=== PATIENT | female | born 1945 | race Caucasian/White ===

== ENCOUNTER 2017-10-12 19:08 | Inpatient (IN) | payer MEDICARE, OTHER ==
--- NOTE | 2017-10-12 20:42 | RAD ---
CHEST TWO VIEWS: 10/12/17 HISTORY: Dyspnea. COMPARISON: 08/02/15 study. Surgical clips are seen over the right chest. Heart size is within normal limits. There are atherosc lerotic changes of the aorta. The lungs are clear of infiltrates. The bone are demineralized. IMPRESSION: No active intrathoracic disease. POS: [facility]
[2017-10-12 21:17] LABS: ALT (SGPT) 32 U/L (8-55); AST (SGOT) 23 U/L (5-34); Albumin 2.8 g/dL (3.4-4.8); Alkaline Phosphatase 55 U/L (40-150); Anion Gap 15 mmol/L (10-20); BUN (Urea Nitrogen) 16 mg/dL (9.8-20.1); Bilirubin, Total 0.6 mg/dL (0.2-1.2); CK (CPK) 25 U/L (29-168); Calc. Creatinine Clearance 0 mL/min (70-130); Calcium 8.7 mg/dL (7.8-10.44); Carbon Dioxide 22 mmol/L (23-31); Chloride 97 mmol/L (98-107); Estimated GFR-MDRD Greater than 90; Globulin 2.6 g/dL (2.4-3.5); Glucose 123 mg/dL (83-110); Potassium 3.6 mmol/L (3.5-5.1); Protein, Total 5.4 g/dL (6.0-8.3); Sodium 130 mmol/L (136-145)
[2017-10-12 21:21] LABS: CKMB 0.5 ng/mL (0-6.6); Troponin I 0.026 ng/mL (< 0.028)
[2017-10-12 21:41] LABS: Bilirubin Negative (Negative); Blood, Urine Negative (Negative); Clarity CLEAR (Clear); Glucose, Urine (Dipstick) Negative (Negative); Leukocyte Negative (Negative); Nitrite Negative (Negative); Protein, Urine (Dipstick) Negative (Neg-Trace); Specific Gravity, Urine 1.021 (1.002-1.036); Urobilinogen 0.2 mg/dL (0.2-1.0); pH, Urine 5.5 (5.0-9.0)
[2017-10-12 22:01] LABS: #Lymphocytes 0.4 thou/uL (1.20-3.40); #Monocytes 0.9 thou/uL (0.11-0.59); #Neutrophils 14.5 thou/uL (1.40-6.50); %Basophils 0.2 % (0.0-1.0); %Eosinophils 0.2 % (0.0-10.0); %Lymphocytes 2.8 % (21.0-51.0); %Monocytes 5.9 % (0.0-10.0); Acanthocytes SLIGHT = 1-5 cells (100X) (None Seen); Anisocytosis SLIGHT = 6-15 cells (100X) (0-5/hpf); Hemoglobin 5.3 g/dL (12.0-16.0); Hypochromia MARKED = >30 cells (100X) (0-5/hpf); MDiff Complete? YES; Mean Corpuscular HGB CONC 27.7 g/dL (32.0-36.0); Mean Corpuscular Hemoglobin 17.3 pg (27.0-31.0); Mean Corpuscular Volume 62.4 fl (81.0-99.0); Mean Platelet Volume 9.5 fL (7.4-10.4); Microcytosis MODERATE=15-30 cells (100X) (0-5/hpf); PLT Morphology Comment Appears Adequate; Platelet Count 393 thou/uL (130-400); Polychromasia SLIGHT = 2-3 cells (100X) (0-2/hpf); RBC Distribution Width 18.2 % (11.5-14.5); Red Blood Cell (RBC) Count 3.08 mill/uL (4.20-5.40); Reflex for Review?? YES; White Blood Cell (WBC) Count 15.9 thou/uL (4.8-10.8)
[2017-10-12 22:31] LABS: Iron 13 ug/dL (50-170); Iron Binding Capacity, Total 259 mcg/dL (265-497)
[2017-10-12 22:33] LABS: INR-International Normal Ratio 1.2; PTT 38.1 SEC (22.9-36.1); Prothrombin Time 15.7 SEC (12.0-14.7)
[2017-10-13] MEDS ORDERED: Sodium Chloride 0.9% 1,000 ML IV SCH (00:02)
[2017-10-13 00:25] VITALS: BMI 16.5
[2017-10-13] MEDS ORDERED: hydrALAZINE 20 MG/ML VIAL SLOW IVP PRN (02:58)
[2017-10-13] MEDS ORDERED: Ondansetron ODT 4 MG TAB PO PRN (02:58)
[2017-10-13] MEDS ORDERED: Dextrose 50% Abboject 50 ML SYRINGE SLOW IVP PRN (02:58)
[2017-10-13] MEDS ORDERED: cloNIDine 0.1 MG TAB PO PRN (02:58)
[2017-10-13] MEDS ORDERED: HumaLOG 300 UNITS/3 ML VIAL SC PRN ×2 (02:58)
[2017-10-13] MEDS ORDERED: diphenhydrAMINE 25 MG CAP PO PRN (02:58)
[2017-10-13] MEDS ORDERED: Ondansetron HCl/PF 4 MG/2 ML Vial IVP PRN (02:58)
[2017-10-13] MEDS ORDERED: Dextrose 5% in Water 1,000 ML IV PRN (02:58)
[2017-10-13] MEDS ORDERED: Acetaminophen 500 MG TAB PO PRN (02:58)
--- NOTE | 2017-10-13 04:28 | HP ---
DATE OF ADMISSION: 10/13/2017 PRIMARY CARE PROVIDER: Yolette Franco M.D. CHIEF COMPLAINT: Decreased appetite. HISTORY OF PRESENT ILLNESS: This is a 72-year-old female who presented to [facility] after family noted decreasing appetite, pale appearance and weakness. 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 The patient also developed seizure disorder after the cerebrovascular accident on ch ronic anti-seizure regimen. The patient is essentially nonambulatory with right hemiparesis and expr essive aphasia. No specific history of fever, cough, or chills. No evidence of stool color changes. No specific evidence of change to chronic medication regimen; however, patient was noted taking asp irin 325 mg daily. In the emergency room, the patient underwent general evaluation with screening me tabolic survey showing hemoglobin of 5.3. The patient was typed and crossed for 2 units of packed re d blood cells receiving first unit at the time of this evaluation. PAST MEDICAL HISTORY: 1. 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 2. Recurrent seizures after cerebrovascular accident. 3. Expressive aphasia. 4. Right hemiparesis. 5. Hypothyroidism. 6. Hyperlipidemia. 7. Diabetes mellitus type 2. 8. History of atrial flutter/fibrillation. 9. Hypertension. 10. Dysphagia. 11. History of breast and uterine carcinoma. PAST SURGICAL HISTORY: 1. Status post PEG tube placement with subsequent removal. 2. Status post right mastectomy. 3. Status post hysterectomy. CURRENT MEDICATIONS: 1. Amiodarone 200 mg 1 tab p.o. daily. 2. Anastrozole 1 mg p.o. daily. 3. Aspirin 325 mg 1 tab p.o. daily. 4. Dulcolax 10 mg per rectum q.24 hours p.r.n. 5. Carvedilol 3.125 mg p.o. b.i.d. 6. Benadryl 25 mg p.o. q.6 hours p.r.n. 7. Colace 100 mg 1 tab p.o. at bedtime. 8. Keppra 500 mg 1 tab p.o. at bedtime. 9. Levothyroxine 175 mcg p.o. daily. 10. Metformin ER 500 mg 1 tab p.o. daily. 11. MiraLax 17 grams p.o. daily. 12. Pravachol 20 mg p.o. at bedtime. ALLERGIES: PENICILLIN and VALPROIC ACID. FAMILY HISTORY: Positive for CVA. SOCIAL HISTORY: The patient is , residing in [place], [place]. No current alcohol, tobacco, or i llicit drug use. REVIEW OF SYSTEMS: The following complete review of systems was negative, unless otherwise mentioned in the HPI or below: Constitutional: Weight loss or gain, ability to conduct usual activities. Skin: Rash, itching. Eyes: Double vision, pain. ENT/Mouth: Nose bleeding, neck stiffness, pain, tenderness. Cardiovascular: Palpitations, dyspnea on exertion, orthopnea. Respiratory: Shortness of breath, wheezing, cough, hemoptysis, fever or night sweats. Gastrointestinal: Poor appetite, abdominal pain, heartburn, nausea, vomiting, constipation, or diarr hea. Genitourinary: Urgency, frequency, dysuria, nocturia. Musculoskeletal: Pain, swelling. Neurologic/Psychiatric: Anxiety, depression. Allergy/Immunologic: Skin rash, bleeding tendency. Otherwise, negative except as stated per HPI. PHYSICAL EXAMINATION: VITAL SIGNS: Currently, blood pressure 146/76, pulse 106, respiratory rate 16, temperature 98.9 degr ees Fahrenheit, O2 saturation 95% on room air. GENERAL APPEARANCE: This is a 72-year-old female, pale appearing with expressive aphasia. HEENT: Pupils are equal, round, and reactive to light and accommodation. Extraocular muscles are in tact. No scleral icterus, no conjunctival injection. Nares patent. OP is clear. Oral mucosa dry. NECK: Supple, no cervical adenopathy, no thyromegaly, no carotid bruits, no JVD appreciated. Cervic al spine with full active and passive range of motion. CHEST: Lungs are clear to auscultation bilaterally. CARDIOVASCULAR: S1, S2 with tachycardia. ABDOMEN: Rounded, soft, nontender, nondistended. Bowel sounds are positive in all four quadrants. There is no hepatosplenomegaly, no abdominal bruits, no rebound or guarding appreciated. EXTREMITIES: Warm and dry with fair turgor. No clubbing, cyanosis or asymmetric edema appreciated. Pulses palpable distally at the dorsalis pedis, posterior tibial, and popliteal arteries bilaterally . Capillary refill less than 2 seconds. NEUROLOGIC: Right hemiparesis. Expressive aphasia. Nonambulatory status. PERTINENT LABORATORY DATA AND X-RAY FINDINGS: Sodium 130, potassium 3.6, chloride 97, CO2 of 22, BUN 16, creatinine 0.59, estimated GFR greater than 90, glucose 123, calcium 8.7. Serum iron level 13, TIBC 259, ferritin 25.1, total bilirubin 0.6. Troponin I 0.026. BNP 138. CBC showed a white blood cell count of 15.9, hemoglobin 5, hematocrit is 19.2, platelet count of 393 with 91% neutrophils. PT 15.7, INR 1.2, PTT 38.1. Stool Hemoccult positive x1 on 10/12/2017. Portable chest x-ray dated showed no acute cardiopulmonary process. ASSESSMENT AND PLAN: 1. Acute on chronic microcytic anemia. Type and cross for 2 units of packed red blood cells and tra nsfuse when available. Consult GI Service for any further recommendations. Continue Pepcid 20 mg IV q.12 hours. 2. Question of gastrointestinal bleed with symptomatic anemia. The patient will be admitted to the medical floor. We will continue transfusion of 2 units of packed red blood cells and monitor serial hemoglobin. We will consult GI service for any further recommendations and endoscopy. Hold anticoag ulation and aspirin therapy. Repeat CBC in the a.m. 3. Hyponatremia, etiology unclear. We will continue intravenous normal saline at 100 mL per hour. Repeat sodium level in the a.m. 4. Seizure disorder, stable currently. Resume home Keppra 500 mg p.o. at bedtime. Continue serial monitoring for seizure activity. 5. Hypertension. Resume home antihypertensive regimen and monitor clinical response. 6. History of cerebrovascular accident with residual right hemiparesis and expressive aphasia. Cont inue supportive measures. Hold aspirin therapy x24 hours. Continue Pepcid 20 mg IV q.12 hours. 7. Prophylaxis. Sequential compression devices while in bed. Pepcid 20 mg IV q.12 hours. 8. Code status is FULL. Surrogate medical decision maker is patient's spouse.
[2017-10-13] MEDS: Levothyroxine 175 MCG TAB PO SCH (05:48)
[2017-10-13] MEDS: Sodium Chloride 0.9% 1,000 ML IV SCH ×3 (05:48→12:31)
[2017-10-13] MEDS: Famotidine/PF 20 mg/2ml Vial SLOW IVP SCH ×2 (07:42→19:48)
[2017-10-13] MEDS: Amiodarone 200 MG TAB PO SCH (07:43)
[2017-10-13] MEDS: Carvedilol 3.125 MG TAB PO SCH ×2 (07:43→16:37)
[2017-10-13] MEDS: Polyethylene Glycol 3350 17 GM Packet PO SCH (07:43)
[2017-10-13] MEDS: Anastrozole 1 MG TAB PO SCH (07:47)
[2017-10-13 08:22] LABS: Hemoglobin 9.2 g/dL (12.0-16.0); Mean Corpuscular HGB CONC 30.6 g/dL (32.0-36.0); Mean Corpuscular Hemoglobin 22.5 pg (27.0-31.0); Mean Corpuscular Volume 73.6 fl (81.0-99.0); Mean Platelet Volume 9.7 fL (7.4-10.4); Platelet Count 351 thou/uL (130-400); Red Blood Cell (RBC) Count 4.07 mill/uL (4.20-5.40); White Blood Cell (WBC) Count 15.1 thou/uL (4.8-10.8)
[2017-10-13 08:30] LABS: Anion Gap 12 mmol/L (10-20); BUN (Urea Nitrogen) 12 mg/dL (9.8-20.1); Calc. Creatinine Clearance 69 mL/min (70-130); Calcium 8.8 mg/dL (7.8-10.44); Carbon Dioxide 24 mmol/L (23-31); Chloride 103 mmol/L (98-107); Estimated GFR-MDRD Greater than 90; Glucose 102 mg/dL (83-110); Potassium 3.6 mmol/L (3.5-5.1); Sodium 135 mmol/L (136-145)
[2017-10-13 10:51] LABS: Anisocytosis MARKED = >30 cells (100X) (0-5/hpf); Band 6 % (5-11); Hypochromia MODERATE=16-30 cells (100X) (0-5/hpf); Lymphocytes 1 % (21-51); MDiff Complete? YES; Microcytosis MODERATE=15-30 cells (100X) (0-5/hpf); Monocytes 4 % (0-10); Neutrophil 89 % (42-75); PLT Morphology Comment Appears Adequate; Polychromasia MODERATE = 3-4 cells (100X) (0-2/hpf)
[2017-10-13] MEDS ORDERED: GoLYTELY 4,000 ml Bottle PO SCH (16:00)
[2017-10-13] MEDS: Docusate 100 MG CAP PO SCH (19:48)
[2017-10-13] MEDS: Pravastatin Sodium 20 MG TAB PO SCH (19:48)
[2017-10-13] MEDS: levETIRAcetam 500 MG TAB PO SCH (19:48)
[2017-10-14] MEDS: Sodium Chloride 0.9% 1,000 ML IV SCH ×3 (01:43→19:03)
[2017-10-14 04:40] LABS: #Eosinphils 0.2 thou/uL (0.0-0.7); #Lymphocytes 0.6 thou/uL (1.20-3.40); #Monocytes 0.8 thou/uL (0.11-0.59); #Neutrophils 9.4 thou/uL (1.40-6.50); %Basophils 0.3 % (0.0-1.0); %Eosinophils 2.1 % (0.0-10.0); %Monocytes 7.3 % (0.0-10.0); %Neutrophils 85.3 % (42.0-75.0); Hemoglobin 8.1 g/dL (12.0-16.0); Mean Corpuscular HGB CONC 31.4 g/dL (32.0-36.0); Mean Corpuscular Hemoglobin 22.8 pg (27.0-31.0); Mean Corpuscular Volume 72.4 fl (81.0-99.0); Mean Platelet Volume 9.9 fL (7.4-10.4); Platelet Count 294 thou/uL (130-400); RBC Distribution Width 25.8 % (11.5-14.5); Red Blood Cell (RBC) Count 3.54 mill/uL (4.20-5.40); White Blood Cell (WBC) Count 11.1 thou/uL (4.8-10.8)
[2017-10-14] MEDS: Levothyroxine 175 MCG TAB PO SCH (04:47)
[2017-10-14] MEDS: Carvedilol 3.125 MG TAB PO SCH ×2 (05:19→17:50)
--- NOTE | 2017-10-14 06:24 | CON ---
DATE OF CONSULTATION: 10/13/2017 REASON FOR CONSULTATION: Severe anemia, heme-positive stool. HISTORY OF PRESENT ILLNESS: Ms. Pat is known to me from prior evaluation with PEG tube placement b [facility] in 2013 and was at that time, she had a stroke. Ultimately, her swallowing improved and she elec tively had the PEG tube removed. She was last seen in the hospital about 2 years ago. Getting histo ry is a little bit difficult and she has history of prior stroke with residual right-sided weakness a nd expressive aphasia. Building Specialist is here with her today. He reports in the chart review indicates t hat she came to the hospital yesterday. The family noted her appearing pale, having decreased appeti te, and being very weak. She was found to have a hemoglobin of 5.3. She has not had any overt bleed ing. According to them, stools have not been black or bloody, but she says that she wanted to eat. There has been no fever or chills. She has lost weight, but it is an unknown amount. I asking her a bout to the [place], she has no problems with dysphagia. She has no coughing or choking with eatin g, has no recurrent pneumonias or episodes with choking spells or coughing spells. They have not bee n aware of her anemia or any overt bleeding. She is not on any blood thinners. PAST MEDICAL HISTORY: Notable for CVA, left middle with residual right-sided weakness and expressive aphasia, right hemiparesis, hypothyroidism, hyperlipidemia, diabetes, history of atrial fibrillation and flutter with previous cardioversions, hypertension, dysphagia, history of previous breast and ut erine cancer. PAST SURGICAL HISTORY: PEG tube placement in 2010 with removal shortly after that after her stroke, right mastectomy, previous hysterectomy. MEDICATIONS: Presently amiodarone, anastrozole, aspirin 325 mg daily, Dulcolax, carvedilol, Benicar, Colace, Keppra, levothyroxine, metformin, MiraLax, and Pravachol. ALLERGIES: PENICILLIN, VALPROIC ACID, KEPPRA. FAMILY HISTORY: CVA. 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 REVIEW OF SYSTEMS: Unable to be obtained, as patient has expressive aphasia. PRESENT MEDICATIONS HERE IN THE HOSPITAL: P.r.n. Tylenol, amiodarone 200 mg daily, Arimidex, Coreg, captopril, dextrose, Benadryl, Pepcid 20 mg daily, Colace p.r.n., Humalog sliding scale, Keppra, Synt hroid, Zofran, Pravachol, normal saline at 100 an hour. PHYSICAL EXAMINATION: GENERAL: The patient is resting comfortably in bed. She is very cachectic with temporal wasting. VITAL SIGNS: Temperature is 98, pulse 93, blood pressure 133/82, mildly tachycardic yesterday when s he came in with pulse 105. NECK: Supple without adenopathy. LUNGS: Clear. CARDIOVASCULAR: Heart is regular rate and rhythm without clicks or murmurs. ABDOMEN: Soft, nontender. RECTAL: Shows brown stool. EXTREMITIES: No clubbing, cyanosis, or edema. SKIN: She has marked redness with temporal wasting. LABORATORY DATA: Labs from 08/2015 showed hemoglobin of 12, and then on this admission, 10/12/2017, her hemoglobin was 5.3 with MCV of 62. After 2 units of blood, her hemoglobin was 9.2. Her white co unt was 11.5, platelet count was normal at 393. INR is 1.2. Comprehensive metabolic profile is norm al. Iron 13, TIBC 259, ferritin 25. Liver function tests were normal. ASSESSMENT AND PLAN: 1. Cachexia and loss of appetite, etiology is unclear with her anemia, possibility of ulcer disease would be considered. Also, she has been on amiodarone for her atrial fibrillation, this can have a p rofound effect on diet and significant weight loss over the years. She has had a prior history of dy sphagia after stroke, but her laborer [employer] notes that she is not having any problems swallowing, but ollie bted this is the cause of her weight loss. 2. Severe microcytic anemia, GI malignancy is of concern. She does have prior history of uterine ca ncer, breast cancer, and there is some increased risk of colorectal cancer. I talked with the patien t and laborer golf [employer], it seems that she does not have problems with drinking liquids or coughing or chokin g, so I think her aspiration risk is low. They would like to proceed with further workup and we will plan for upper and lower endoscopy tomorrow. In light of her significant weight loss, it would be r easonable to get a chest x-ray, consider other more systemic diseases. She did have a chest x-ray on 07/23/2015, which was normal. It would be reasonable to get a repeat one in light of her significan t weight loss. She did have one on 10/12/2017, that was normal and this not need to be repeating.
[2017-10-14] MEDS ORDERED: Promethazine HCl 25 MG/ML VIAL IM PRN (10:02)
[2017-10-14] MEDS ORDERED: Ondansetron HCl/PF 4 MG/2 ML Vial IVP PRN (10:02)
[2017-10-14] MEDS ORDERED: Promethazine HCl 25 MG/ML VIAL SLOW IVP PRN (10:02)
[2017-10-14] MEDS: Famotidine/PF 20 mg/2ml Vial SLOW IVP SCH ×2 (11:35→21:54)
[2017-10-14] MEDS: Amiodarone 200 MG TAB PO SCH (11:35)
[2017-10-14] MEDS: Anastrozole 1 MG TAB PO SCH (11:35)
--- NOTE | 2017-10-14 12:15 | PQF ---
Date: 10-14-17 ATTN: DR. ACEVEDO Please exercise your independent, professional judgment in responding to the clarification form. Clinical indicators are provided on the bottom of this form for your review Please check appropriate box(s): [ ] Protein Calorie Malnutrition: [ ] Mild [ X ] Moderate [ ] Severe [ ] Other Malnutrition (please specify) __ [ ] Other diagnosis [ ] Unable to determine In addition, please specify: Present on Admission (POA): [X ] Yes [ ] No [ ] Unable to determine CLINICAL INDICATORS - SIGNS / SYMPTOMS / LABS BMI of 16.5, Albumin 10-12-17: 2.8 ER DIAGNOSIS: GI BLEED, ADULT FAILURE TO THRIVE ER DOCUMENTATION: PATIENT OVER THE LAST 2 DAYS HAS BECOME LESS INTERESTED IN FOOD WITH ONLY "2 DONUT HOLES , 4 STRAWBERRIES AND 2 CUPS OF MILK" H&P: FAMILY NOTED DECREASING APPETITE, PALE APPEARANCE AND WEAKNESS CONSULT NOTE DR. ADLER 10-13-17: CACHEXIA AND LOSS OF APPETITE MANAGER DENTAL CONSULT 10-13-17: patient is aphasic, family at bedside provided history. She has been eating less off and on for the last couple of months, thinks she has been losing weight and has been getting very weak. He has noticed she is unable to assist him when helping her to the bathroom or shower. She has not had anything to eat at all for 2 days, had a snack in the middle of the night Tuesday. Family states patient does not drink supplements, is not sure if she's tried them before, they have just chosen high calorie foods/ beverages like whole milk. . Family was unsure of usual weight but knows she's been weighing 102-103 lbs recently at the doctors. RISK FACTORS: MANAGER DENTAL CONSULT 10-13-17: patient is aphasic, family at bedside provided history. She has been eating less off and on for the last couple of months, thinks she has been losing weight and has been getting very weak. He has noticed she is unable to assist him when helping her to the bathroom or shower. She has not had anything to eat at all for 2 days, had a snack in the middle of the night Tuesday morning. Family states patient does not drink supplements, is not sure if she's tried them before, they have just chosen high calorie foods/beverages like whole milk. Family was unsure of usual weight but knows she's been weighing 102-103 lbs recently at the doctors. TTREATMENT: MANAGER DENTAL CONSULT 10-13-17: 1. Continue NPO status 2. When medically appropriate, recommend a STIFF LEG DERRICK OPERATOR consult to determine safest textures d/t history of dysphagia and PEG. Recommend ADAT to a Heart Healthy/ Consistent Yimi (1800 kcal)/Fiber-Restricted diet 3. Supplement Glucerna BID to aid with intake once diet is ordered (This form is maintained as a part of the permanent medical record) 2015 [employer] All Rights Reserved TARYN [email or web address] Office: [phone] DIPTI
--- NOTE | 2017-10-14 13:22 | OP ---
DATE OF PROCEDURE: 10/14/2017 INDICATIONS: Anemia. PROCEDURE: EGD DESCRIPTION OF PROCEDURE: After discussing the risks and benefits of the procedures including risks of bleeding, infection, perforation, reaction to anesthesia, and/or pain, informed consent was obtained from the patient's . The patient was then taken to the endoscopy suite with deep sedation administered via propofol and anesthesia support. The standard gastroscope was then advanced into the mouth with intubation of the esophagus, stomach, and small intestine with the findings listed below. FINDINGS: Duodenum: Normal appearing mucosa was seen in both the duodenal bulb and second portion of the duodenum. There was no evidence of erosions, ulcerations, active/recent bleeding, or mass lesions. STOMACH: Normal appearing mucosa was seen in the gastric cardia, fundus, body, antrum, and incisura. There was no evidence of erosions, ulcerations, active/ recent bleeding, and/or mass lesions. Normal mucosa was seen on gastric retroflexion. ESOPHAGUS: Innumerable whitish plaques were seen in the proximal and midesophagus, they were not easily removed with passage of the gastroscope. There was no associated erythema to the mucosa or ulceration. Normal appearing mucosa was seen in the distal esophagus without evidence of esophagitis, erosions, ulcerations, active/recent bleeding, or mass lesions. The diaphragmatic pinch was well seen at 39 cm past the incisors with the GE junction seen at 38 cm denoting a 1 cm hiatal hernia. IMPRESSION: 1. Alicia esophagitis. 2. A 1-cm hiatal hernia. 3. No etiology for anemia seen during this examination. RECOMMENDATIONS: 1. We will place the patient on oral fluconazole for treatment of esophageal candidiasis. 2. Proceed with colonoscopy. PROCEDURE: Colonoscopy. DESCRIPTION OF PROCEDURE: After the risks and benefits of the colonoscopy were explained including risks of infection, bleeding, perforation, reaction to anesthesia, and/or pain, informed consent was obtained from the patient's . The patient was taken back to the endoscopy suite with deep sedation via propofol sedation administered by Anesthesia support. The standard colonoscope was then advanced through the rectum and advanced to the terminal ileum with little difficulty. The prep was fair to poor. Findings of the procedure are listed below. FINDINGS: A moderate amount of solid and liquid stool was seen throughout the entire colon limiting visualization of the colonic mucosal somewhat. However, the prep was adequate for the determination of anemia, but inadequate for screening purposes. Of the mucosa seen (approximately 80%-90%), there were normal findings in the terminal ileum, cecum, and ileocecal valve. Normal mucosa was seen in the ascending, transverse, descending, and sigmoid colons. Normal appearing mucosa was seen in the rectum including retroflexion. RECTAL: No evidence of hemorrhoids. Normal rectal exam. IMPRESSION: 1. Normal colonoscopy. 2. No etiology for anemia seen during this exam. RECOMMENDATIONS: 1. Follow up with primary inpatient team. 2. We would continue to trend hemoglobin and hematocrit and transfuse as necessary to maintain an hemoglobin and hematocrit of 7/21. 3. Would place the patient on oral iron supplementation for microcytic anemia. 4. Would place the patient on oral fluconazole for treatment of oral candidiasis as stated in EGD 5. Outpatient followup with GI Clinic within 2 weeks of discharge for further evaluation of anemia and possible capsule endoscopy at that time. [facility]
[2017-10-14] MEDS: Polyethylene Glycol 3350 17 GM Packet PO SCH (13:55)
--- NOTE | 2017-10-14 14:27 | PDOC.PN ---
- Subjective Encounter Start Date: 10/14/17 Encounter Start Time: 14:25 Ms. Pat was seen today in follow-up of severe anemia. She indicates no problems this afternoon. Her is at the bedside, and says she is too weak to go home. She requires total assistance with ADL's which she did not require prior to this illness. - Objective Resuscitation Status: Resuscitation Status FULL:Full Resuscitation MAR Reviewed: Yes Vital Signs & Weight: Vital Signs (12 hours) Temp Pulse Resp BP BP Pulse Ox 10/14/17 11:41 97.6 F 90 16 182/100 H 100 10/14/17 11:33 92 183/108 H 10/14/17 08:00 97.6 F 90 16 96 10/14/17 07:12 98.3 F 92 16 146/80 H 99 10/14/17 04:00 98.8 F 99 18 149/81 H 94 L Weight Admit Weight 102 lb Weight 102 lb I&O: 10/13/17 10/14/17 10/15/17 06:59 06:59 06:59 Intake Total 820 4900 Output Total 6 Balance 820 4894 Result Diagrams: 10/14/17 04:18 10/13/17 08:00 Additional Labs: Accuchecks 10/14/17 10/13/17 10/13/17 05:25 19:27 16:26 POC Glucose 103 143 H 142 H Phys Exam - Physical Examination HEENT: PERRLA Respiratory: no wheezing, no rales, no rhonchi, clear to auscultation bilateral Cardiovascular: RRR, no significant murmur Gastrointestinal: soft, non-tender, positive bowel sounds Musculoskeletal: no edema Dx/Plan (1) Severe anemia Code(s): D64.9 - ANEMIA, UNSPECIFIED Status: Acute (2) Iron deficiency Code(s): E61.1 - IRON DEFICIENCY Status: Acute (3) Esophagitis Code(s): K20.9 - ESOPHAGITIS, UNSPECIFIED Status: Acute (4) DM type 2 (diabetes mellitus, type 2) Status: Chronic (5) H/O: CVA (cerebrovascular accident) Code(s): Z86.73 - PRSNL HX OF TIA (TIA), AND CEREB INFRC W/O RESID DEFICITS Status: Chronic (6) HTN (hypertension) Code(s): I10 - ESSENTIAL (PRIMARY) HYPERTENSION Status: Chronic (7) Moderate protein malnutrition Code(s): E44.0 - MODERATE PROTEIN-CALORIE MALNUTRITION Status: Chronic - Plan * Severe iron deficiency Anemia- ? etiology- discussed EGD and Colonoscopy results with the patient's at length. Will continue iron therapy, and monitor H&H. Once she is stronger consider Outpatient Capsule study. * Esophagitis- will start Diflucan * Deconditioning- patient is much weaker now than she had been in the recent past. Before she was able to assist her in activities such as toileting , and transfers, but now she is not able. He is not able to manage her on his own now- will therefore screen for penitentiary evaluation * Hyponatremia- resolved- likely due to volume depletion * Moderate malnutrition- encourage oral intake, and add supplements.
[2017-10-14] MEDS: Ferrous Sulfate 325 MG TAB PO SCH (16:10)
[2017-10-14] MEDS ORDERED: PROPOFOL 200 MG/20 ML VIAL ONE (17:03)
[2017-10-14] MEDS: levETIRAcetam 500 MG TAB PO SCH (21:57)
[2017-10-14] MEDS: Docusate 100 MG CAP PO SCH (21:57)
[2017-10-14] MEDS: Pravastatin Sodium 20 MG TAB PO SCH (21:57)
[2017-10-15] MEDS: Sodium Chloride 0.9% 1,000 ML IV SCH ×4 (02:57→20:36)
[2017-10-15] MEDS: Levothyroxine 175 MCG TAB PO SCH (05:58)
[2017-10-15] MEDS: Fluconazole 100 MG TAB PO SCH (08:01)
[2017-10-15] MEDS: Famotidine/PF 20 mg/2ml Vial SLOW IVP SCH ×2 (08:01→20:30)
[2017-10-15] MEDS: Carvedilol 3.125 MG TAB PO SCH ×2 (08:01→16:27)
[2017-10-15] MEDS: Ferrous Sulfate 325 MG TAB PO SCH ×2 (08:01→16:27)
[2017-10-15] MEDS: Polyethylene Glycol 3350 17 GM Packet PO SCH (08:01)
[2017-10-15] MEDS: Anastrozole 1 MG TAB PO SCH (08:01)
[2017-10-15] MEDS: Amiodarone 200 MG TAB PO SCH (08:02)
--- NOTE | 2017-10-15 14:53 | PDOC.PN ---
- Subjective Encounter Start Date: 10/15/17 Encounter Start Time: 14:51 Ms. Pat was seen today in follow-up of severe anemia. She is resting in bed and appears comfortable. She shakes her head, and indicates that she did not have any problems overnight. - Objective Resuscitation Status: Resuscitation Status FULL:Full Resuscitation MAR Reviewed: Yes Vital Signs & Weight: Vital Signs (12 hours) Temp Pulse Resp BP Pulse Ox 10/15/17 08:05 98.7 F 85 16 119/72 98 10/15/17 08:00 98.7 F 85 16 98 10/15/17 04:00 98.1 F 91 16 102/66 94 L Weight Admit Weight 102 lb Weight 102 lb I&O: 10/14/17 10/15/17 10/16/17 06:59 06:59 06:59 Intake Total 5400 1940 Output Total 6 Balance 5394 1940 Result Diagrams: 10/14/17 04:18 10/13/17 08:00 Additional Labs: Accuchecks 10/15/17 10/15/17 10/14/17 11:34 04:02 20:31 POC Glucose 94 109 124 H 10/14/17 10/14/17 10/13/17 16:30 11:17 04:13 POC Glucose 98 101 128 H Phys Exam - Physical Examination HEENT: PERRLA Respiratory: no wheezing, no rales, no rhonchi, clear to auscultation bilateral Cardiovascular: RRR, no significant murmur Gastrointestinal: soft, non-tender, positive bowel sounds Musculoskeletal: no edema Dx/Plan (1) Severe anemia Code(s): D64.9 - ANEMIA, UNSPECIFIED Status: Acute (2) Iron deficiency Code(s): E61.1 - IRON DEFICIENCY Status: Acute (3) Esophagitis Code(s): K20.9 - ESOPHAGITIS, UNSPECIFIED Status: Acute (4) DM type 2 (diabetes mellitus, type 2) Status: Chronic (5) H/O: CVA (cerebrovascular accident) Code(s): Z86.73 - PRSNL HX OF TIA (TIA), AND CEREB INFRC W/O RESID DEFICITS Status: Chronic (6) HTN (hypertension) Code(s): I10 - ESSENTIAL (PRIMARY) HYPERTENSION Status: Chronic (7) Moderate protein malnutrition Code(s): E44.0 - MODERATE PROTEIN-CALORIE MALNUTRITION Status: Chronic - Plan * Anemia- iron deficiency- continue iron supplementation, and will monitor her H &H periodically * HTN- blood pressure is stable * Hypothyroidism- stable * Esophagitis- presumed Alicia- continue Diflucan * PT/OT, and half-way placement.
[2017-10-15] MEDS: levETIRAcetam 500 MG TAB PO SCH (20:29)
[2017-10-15] MEDS: Pravastatin Sodium 20 MG TAB PO SCH (20:30)
[2017-10-15] MEDS: Docusate 100 MG CAP PO SCH (20:30)
--- NOTE | 2017-10-15 21:07 | PRG ---
DATE OF SERVICE: 10/15/2017 SUBJECTIVE: Ms. Pat has no acute complaints. She has tolerated her full liquid diet today. Upper and lower endoscopy did not show an obvious source for anemia or weight loss. She was noted to have Alicia esophagitis and is on fluconazole now. OBJECTIVE: VITAL SIGNS: Temperature 97.4, pulse 88, blood pressure 99/62. GENERAL: She is in no acute distress, awake and alert. LUNGS: Clear to auscultation bilaterally. HEART: Regular rate and rhythm. ABDOMEN: Soft, nontender, nondistended. Bowel sounds are present. EXTREMITIES: No lower extremity edema. IMPRESSION: 1. Cachexia and weight loss. No obvious GI malignancy was identified by endoscopy. 2. Microcytic anemia, status post transfusion. RECOMMENDATIONS: 1. We will obtain CT scan of the abdomen and pelvis. Rule out pancreatic mass as the source for her weight loss. 2. If the CT is negative, then follow up in the office as an outpatient to consider capsule endoscop y.
[2017-10-16] MEDS: Levothyroxine 175 MCG TAB PO SCH (05:32)
[2017-10-16 05:53] LABS: Hemoglobin 7.2 g/dL (12.0-16.0); Platelet Count 306 thou/uL (130-400)
[2017-10-16] MEDS: Famotidine/PF 20 mg/2ml Vial SLOW IVP SCH ×2 (08:49→21:11)
[2017-10-16] MEDS: Fluconazole 100 MG TAB PO SCH (08:50)
[2017-10-16] MEDS: Carvedilol 3.125 MG TAB PO SCH ×2 (08:50→17:02)
[2017-10-16] MEDS: Ferrous Sulfate 325 MG TAB PO SCH ×2 (08:51→17:02)
[2017-10-16] MEDS: Anastrozole 1 MG TAB PO SCH (08:51)
[2017-10-16] MEDS: Polyethylene Glycol 3350 17 GM Packet PO SCH (08:51)
[2017-10-16] MEDS: Amiodarone 200 MG TAB PO SCH (08:51)
--- NOTE | 2017-10-16 09:36 | CT ---
CT ABDOMEN AND PELVIS WITH ORAL AND IV CONTRAST: HISTORY: Weight loss, uterine and breast cancer. FINDINGS: There are bilateral moderate-sized pleural effusions with adjacent atelectatic changes. No calcified gallstones are seen. The liver, pancreas, adrenal glands, and kidneys are unremarkable. There is a n 8 mm low-density lesion seen in the anterolateral aspect of the spleen. No free air or lymphadenop athy is seen. There is an ill-defined fluid collection in the pelvis measuring 6 cm in largest dimen kassie. There is haziness in the presacral fat. The small bowel loops are not abnormally dilated. Vas cular calcifications are present without evidence of aneurysmal dilatation of the abdominal aorta. T here are degenerative changes in the spine. No osteolytic or osteoblastic lesions are identified. T here haziness in the subcutaneous fat. IMPRESSION: 1. Moderate-sized bilateral pleural effusions with adjacent atelectatic changes. 2. An 8 mm low-density lesion in the spleen. 3. Ill-defined fluid collection in the pelvis. POS: [facility]
[2017-10-16] MEDS: Sodium Chloride 0.9% 1,000 ML IV SCH ×2 (11:55→21:13)
--- NOTE | 2017-10-16 11:58 | PRG ---
DATE OF SERVICE: 10/16/2017 SUBJECTIVE: Ms. Pat has no acute complaints today. She has had poor oral intake chronically. OBJECTIVE: VITAL SIGNS: Temperature 97.6, pulse 75, blood pressure 147/71. GENERAL: She is in no acute distress. She is awake and alert. LUNGS: Clear to auscultation bilaterally. HEART: Regular rate and rhythm. ABDOMEN: Soft, nontender, nondistended. Bowel sounds are present. EXTREMITIES: No lower extremity edema. LABORATORY DATA: Her hemoglobin has trended down to 7.2 again without overt bleeding. IMPRESSION: 1. Iron deficiency anemia. Upper and lower endoscopy was negative for bleeding source. 2. Cachexia and weight loss. RECOMMENDATIONS: 1. CT scan of the abdomen and pelvis was performed which was negative for evidence of pancreatic can cer or other source for her weight loss and cachexia. She does have some free fluid which could be d ue to anasarca from hypoalbuminemia and malnutrition. She will need to continue oral dietary supplem ents. 2. Follow up as an outpatient for capsule endoscopy. 3. I will sign off for now. Please call if GI can be of assistance.
--- NOTE | 2017-10-16 16:38 | PDOC.PN ---
- Subjective Encounter Start Date: 10/16/17 Encounter Start Time: 16:37 Ms. Pat was seen today in follow-up of blood loss anemia. She does not have any complaints today. - Objective Resuscitation Status: Resuscitation Status FULL:Full Resuscitation MAR Reviewed: Yes Vital Signs & Weight: Vital Signs (12 hours) Temp Pulse Resp BP Pulse Ox 10/16/17 08:10 97.6 F 75 16 147/71 H 96 10/16/17 08:00 97.6 F 75 16 96 Weight Admit Weight 102 lb Weight 102 lb I&O: 10/15/17 10/16/17 10/17/17 06:59 06:59 06:59 Intake Total 1939 3549 Balance 1939 3549 Result Diagrams: 10/16/17 05:18 10/13/17 08:00 Additional Labs: Accuchecks 10/16/17 10/16/17 10/15/17 11:07 06:17 20:33 POC Glucose 103 98 148 H 10/15/17 16:43 POC Glucose 177 H Phys Exam - Physical Examination HEENT: PERRLA Respiratory: no wheezing, no rales, no rhonchi, clear to auscultation bilateral Cardiovascular: RRR, no significant murmur Gastrointestinal: soft, non-tender, positive bowel sounds Musculoskeletal: no edema Dx/Plan (1) Severe anemia Code(s): D64.9 - ANEMIA, UNSPECIFIED Status: Acute (2) Iron deficiency Code(s): E61.1 - IRON DEFICIENCY Status: Acute (3) Esophagitis Code(s): K20.9 - ESOPHAGITIS, UNSPECIFIED Status: Acute (4) DM type 2 (diabetes mellitus, type 2) Status: Chronic (5) H/O: CVA (cerebrovascular accident) Code(s): Z86.73 - PRSNL HX OF TIA (TIA), AND CEREB INFRC W/O RESID DEFICITS Status: Chronic (6) HTN (hypertension) Code(s): I10 - ESSENTIAL (PRIMARY) HYPERTENSION Status: Chronic (7) Moderate protein malnutrition Code(s): E44.0 - MODERATE PROTEIN-CALORIE MALNUTRITION Status: Chronic - Plan * Iron Deficiency Anemia- continue iron supplementation and PPI * Encourage oral intake- and will add Megace for appetite, and advance her diet * HTN - blood pressure is stable * DM- blood glucose is stable * She is stable for transfer to [facility].
[2017-10-16] MEDS: Docusate 100 MG CAP PO SCH (21:11)
[2017-10-16] MEDS: levETIRAcetam 500 MG TAB PO SCH (21:11)
[2017-10-16] MEDS: Pravastatin Sodium 20 MG TAB PO SCH (21:11)
[2017-10-17] MEDS: Levothyroxine 175 MCG TAB PO SCH (06:13)
[2017-10-17] MEDS: Sodium Chloride 0.9% 1,000 ML IV SCH ×2 (08:17→17:45)
[2017-10-17] MEDS: Polyethylene Glycol 3350 17 GM Packet PO SCH (08:19)
[2017-10-17] MEDS: Famotidine/PF 20 mg/2ml Vial SLOW IVP SCH ×2 (08:20→20:42)
[2017-10-17] MEDS: Carvedilol 3.125 MG TAB PO SCH ×2 (08:21→17:24)
[2017-10-17] MEDS: Ferrous Sulfate 325 MG TAB PO SCH ×2 (08:21→17:24)
[2017-10-17] MEDS: Fluconazole 100 MG TAB PO SCH (08:21)
[2017-10-17] MEDS: Amiodarone 200 MG TAB PO SCH (08:21)
[2017-10-17] MEDS: Anastrozole 1 MG TAB PO SCH (08:22)
[2017-10-17] MEDS: Megestrol Acetate 40 MG TAB PO SCH (08:22)
--- NOTE | 2017-10-17 15:30 | PDOC.PN ---
- Subjective Encounter Start Date: 10/17/17 Encounter Start Time: 15:28 Ms. Pat was seen today in follow-up. She does not have any complaints. Her appetite has improved - Objective Resuscitation Status: Resuscitation Status FULL:Full Resuscitation MAR Reviewed: Yes Vital Signs & Weight: Vital Signs (12 hours) Temp Pulse Resp BP Pulse Ox 10/17/17 08:00 97.9 F 79 20 96 10/17/17 07:05 97.9 F 79 18 137/73 92 L Weight Admit Weight 102 lb Weight 102 lb I&O: 10/16/17 10/17/17 10/18/17 06:59 06:59 06:59 Intake Total 3550 2440 Balance 3550 2440 Result Diagrams: 10/16/17 05:18 10/13/17 08:00 Additional Labs: Accuchecks 10/17/17 10/17/17 10/16/17 11:33 06:14 20:07 POC Glucose 101 101 134 H 10/16/17 16:40 POC Glucose 111 H Phys Exam - Physical Examination HEENT: PERRLA Respiratory: no wheezing, no rales, no rhonchi, clear to auscultation bilateral Cardiovascular: RRR, no significant murmur Gastrointestinal: soft, non-tender, positive bowel sounds Musculoskeletal: no edema Dx/Plan (1) Severe anemia Code(s): D64.9 - ANEMIA, UNSPECIFIED Status: Acute (2) Iron deficiency Code(s): E61.1 - IRON DEFICIENCY Status: Acute (3) Esophagitis Code(s): K20.9 - ESOPHAGITIS, UNSPECIFIED Status: Acute (4) DM type 2 (diabetes mellitus, type 2) Status: Chronic (5) H/O: CVA (cerebrovascular accident) Code(s): Z86.73 - PRSNL HX OF TIA (TIA), AND CEREB INFRC W/O RESID DEFICITS Status: Chronic (6) HTN (hypertension) Code(s): I10 - ESSENTIAL (PRIMARY) HYPERTENSION Status: Chronic (7) Moderate protein malnutrition Code(s): E44.0 - MODERATE PROTEIN-CALORIE MALNUTRITION Status: Chronic - Plan * Acute blood loss anemia- - will recheck H&H in the AM * Continue Protonix * HTN- blood pressure is controlled * DM- blood glucose is stable . * Transfer to [facility] if H&H stable, and agrees
[2017-10-17] MEDS: Pravastatin Sodium 20 MG TAB PO SCH (20:42)
[2017-10-17] MEDS: levETIRAcetam 500 MG TAB PO SCH (20:42)
[2017-10-17] MEDS: Docusate 100 MG CAP PO SCH (20:42)
[2017-10-18] MEDS: Sodium Chloride 0.9% 1,000 ML IV SCH ×3 (03:59→21:20)
[2017-10-18 05:13] LABS: Hemoglobin 7.6 g/dL (12.0-16.0); Platelet Count 331 thou/uL (130-400)
[2017-10-18] MEDS: Levothyroxine 175 MCG TAB PO SCH (06:22)
[2017-10-18] MEDS: Fluconazole 100 MG TAB PO SCH (08:44)
[2017-10-18] MEDS: Anastrozole 1 MG TAB PO SCH (08:44)
[2017-10-18] MEDS: Amiodarone 200 MG TAB PO SCH (08:44)
[2017-10-18] MEDS: Megestrol Acetate 40 MG TAB PO SCH (08:44)
[2017-10-18] MEDS: Ferrous Sulfate 325 MG TAB PO SCH ×2 (08:44→16:25)
[2017-10-18] MEDS: Carvedilol 3.125 MG TAB PO SCH ×2 (08:44→16:25)
[2017-10-18] MEDS: Polyethylene Glycol 3350 17 GM Packet PO SCH (08:45)
[2017-10-18] MEDS: Famotidine/PF 20 mg/2ml Vial SLOW IVP SCH (08:45)
--- NOTE | 2017-10-18 16:00 | PDOC.PN ---
- Subjective Encounter Start Date: 10/18/17 Encounter Start Time: 15:58 Patient seen and examined. No new complaints. No overnight events - Objective Resuscitation Status: Resuscitation Status FULL:Full Resuscitation MAR Reviewed: Yes Vital Signs & Weight: Vital Signs (12 hours) Temp Pulse Resp BP Pulse Ox Pulse Ox 10/18/17 13:16 98 10/18/17 08:13 97.6 F 77 16 152/89 H 99 10/18/17 08:00 97.6 F 77 16 Weight Admit Weight 102 lb Weight 102 lb I&O: 10/17/17 10/18/17 10/19/17 06:59 06:59 06:59 Intake Total 2440 1020 Balance 2440 1020 Result Diagrams: 10/18/17 04:36 10/13/17 08:00 Additional Labs: Accuchecks 10/17/17 10/17/17 19:14 17:09 POC Glucose 182 H 115 H Phys Exam - Physical Examination Constitutional: NAD HEENT: PERRLA Neck: no JVD Respiratory: no rales Cardiovascular: no significant murmur Gastrointestinal: non-tender Musculoskeletal: pulses present expressive aphasia, rt hemiparesis Psychiatric: A&O x 3 Dx/Plan (1) Esophagitis Code(s): K20.9 - ESOPHAGITIS, UNSPECIFIED Status: Acute (2) Iron deficiency Code(s): E61.1 - IRON DEFICIENCY Status: Acute (3) Severe anemia Code(s): D64.9 - ANEMIA, UNSPECIFIED Status: Acute (4) Moderate protein malnutrition Code(s): E44.0 - MODERATE PROTEIN-CALORIE MALNUTRITION Status: Chronic (5) Hypokalemia Code(s): E87.6 - HYPOKALEMIA Status: Acute (6) Seizure Code(s): R56.9 - UNSPECIFIED CONVULSIONS Status: Acute (7) Aphasia Code(s): R47.01 - APHASIA Status: Chronic (8) DM type 2 (diabetes mellitus, type 2) Status: Chronic - Plan * doing good * monitor h/h * continue fluconazole * [facility] * capsule endoscopy as out pt
[2017-10-18] MEDS: Docusate 100 MG CAP PO SCH (20:10)
[2017-10-18] MEDS: levETIRAcetam 500 MG TAB PO SCH (20:10)
[2017-10-18] MEDS: Pravastatin Sodium 20 MG TAB PO SCH (20:10)
[2017-10-19] MEDS: Levothyroxine 175 MCG TAB PO SCH (05:51)
[2017-10-19 05:57] LABS: #Eosinphils 0.2 thou/uL (0.0-0.7); #Monocytes 0.9 thou/uL (0.11-0.59); #Neutrophils 6.8 thou/uL (1.40-6.50); %Basophils 0.4 % (0.0-1.0); %Eosinophils 2.4 % (0.0-10.0); %Lymphocytes 11.3 % (21.0-51.0); %Monocytes 9.7 % (0.0-10.0); %Neutrophils 76.2 % (42.0-75.0); Anisocytosis MODERATE=16-30 cells (100X) (0-5/hpf); Hemoglobin 8.4 g/dL (12.0-16.0); Hypochromia MODERATE=16-30 cells (100X) (0-5/hpf); MDiff Complete? YES; Mean Corpuscular HGB CONC 29.9 g/dL (32.0-36.0); Mean Corpuscular Hemoglobin 22.4 pg (27.0-31.0); Mean Corpuscular Volume 74.8 fl (81.0-99.0); Mean Platelet Volume 9.3 fL (7.4-10.4); Microcytosis SLIGHT = 6-15 cells (100X) (0-5/hpf); PLT Morphology Comment Appears Adequate; Platelet Count 375 thou/uL (130-400); Polychromasia SLIGHT = 2-3 cells (100X) (0-2/hpf); RBC Distribution Width 27.3 % (11.5-14.5); Red Blood Cell (RBC) Count 3.73 mill/uL (4.20-5.40); White Blood Cell (WBC) Count 8.9 thou/uL (4.8-10.8)
[2017-10-19] MEDS: Sodium Chloride 0.9% 1,000 ML IV SCH ×2 (07:55→19:17)
[2017-10-19] MEDS: Polyethylene Glycol 3350 17 GM Packet PO SCH (07:55)
[2017-10-19] MEDS: Fluconazole 100 MG TAB PO SCH (07:57)
[2017-10-19] MEDS: Ferrous Sulfate 325 MG TAB PO SCH ×2 (07:58→16:40)
[2017-10-19] MEDS: Carvedilol 3.125 MG TAB PO SCH ×2 (07:58→16:40)
[2017-10-19] MEDS: Amiodarone 200 MG TAB PO SCH (07:58)
[2017-10-19] MEDS: Anastrozole 1 MG TAB PO SCH (07:58)
[2017-10-19] MEDS: Megestrol Acetate 40 MG TAB PO SCH (07:58)
--- NOTE | 2017-10-19 12:41 | DIS ---
DATE OF ADMISSION: 10/12/2017 DATE OF DISCHARGE: 10/19/2017 DISCHARGE DIAGNOSES: 1. Severe anemia, iron deficiency in nature, status post transfusion of 2 units, status post esophag ogastroduodenoscopy and colonoscopy without any visible source. Right now, H&H is stable. 2. Hyponatremia, stable. 3. Seizure disorder, stable. 4. Hypertension, stable. 5. History of cerebrovascular accident with right-sided hemiparesis and expressive aphasia, stable. 6. Alicia esophagitis on Diflucan. 7. Hypokalemia, stable. 8. Moderate protein malnutrition, stable. 9. Diabetes mellitus, stable. 10. History of atrial fibrillation/atrial flutter, stable. DISCHARGE MEDICATIONS: The patient's discharge medications are same as home medications except for D iflucan 200 mg p.o. daily for 10 more doses, and Protonix 40 mg p.o. daily. DISPOSITION: To the [facility], pending insurance approval. CONSULTANTS ON THE CASE: GI. BRIEF HOSPITAL COURSE: A 72-year-old pleasant lady came into the hospital with decreased appetite. Please refer to the admitting physician's H&P for further details. She was found to be extremely ane angel with hemoglobin of 5. She was transfused PRBCs. She had a scope EGD and colonoscopy, which did not reveal any source of bleeding. It showed Alicia esophagitis for which she is treated with p.o. Diflucan right now and GI has recommended that. Once her hemoglobin was stable, she could be dischar [facility] for physical therapy and to be followed up as an outpatient for capsule endoscopy. Right now, th e patient's hemoglobin is stable at 8.6. This morning, she is medically stable to be discharged to [facility], pending insurance approval. PHYSICAL EXAMINATION: VITAL SIGNS: The patient at the time of discharge, had a blood pressure of 152/85, temperature afebr ile, pulse 72, respirations 16. GENERAL: Patient is lying in bed, in no apparent distress. HEENT: Atraumatic and normocephalic. Pupils are equal, round, react to light. Extraocular movement s intact. Mucous membranes moist. NECK: Supple. No JVD. CHEST: Breath sounds heard. No rales or rhonchi. HEART: S1, S2, no murmurs or gallops. ABDOMEN: Soft. EXTREMITIES: No cyanosis, clubbing or edema. NEUROLOGIC: Right-sided hemiparesis, expressive aphasia, nonambulatory status. Patient right now is medically stable to be transferred to the [facility] for rehabilitation. She is asked to follow up with GI for capsule endoscopy. She is asked to follow up with PCP for monitoring of the hemoglobin and as ked to come back to the emergency room in case symptoms recur. Total time for this discharge took 35 minutes.
[2017-10-19] MEDS: Docusate 100 MG CAP PO SCH (20:07)
[2017-10-19] MEDS: levETIRAcetam 500 MG TAB PO SCH (20:07)
[2017-10-19] MEDS: Pravastatin Sodium 20 MG TAB PO SCH (20:07)
[2017-10-20] MEDS: Sodium Chloride 0.9% 1,000 ML IV SCH (01:57)
[2017-10-20] MEDS: Levothyroxine 175 MCG TAB PO SCH (05:45)
[2017-10-20] MEDS: Megestrol Acetate 40 MG TAB PO SCH (08:52)
[2017-10-20] MEDS: Fluconazole 100 MG TAB PO SCH (08:52)
[2017-10-20] MEDS: Anastrozole 1 MG TAB PO SCH (08:52)
[2017-10-20] MEDS: Ferrous Sulfate 325 MG TAB PO SCH ×2 (08:52→16:14)
[2017-10-20] MEDS: Amiodarone 200 MG TAB PO SCH (08:53)
[2017-10-20] MEDS: Polyethylene Glycol 3350 17 GM Packet PO SCH (08:53)
[2017-10-20] MEDS: Carvedilol 3.125 MG TAB PO SCH ×2 (08:53→16:13)
--- NOTE | 2017-10-20 12:01 | PDOC.PN ---
- Subjective Encounter Start Date: 10/20/17 Encounter Start Time: 12:01 Patient seen and examined. No new complaints. No overnight events - Objective Resuscitation Status: Resuscitation Status FULL:Full Resuscitation MAR Reviewed: Yes Vital Signs & Weight: Vital Signs (12 hours) Temp Pulse Resp BP Pulse Ox 10/20/17 08:00 99.1 F 69 20 97 10/20/17 07:55 99.1 F 69 20 144/80 H 97 Weight Admit Weight 102 lb Weight 102 lb I&O: 10/19/17 10/20/17 10/21/17 06:59 06:59 06:59 Intake Total 240 400 Balance 240 400 Result Diagrams: 10/19/17 04:49 10/13/17 08:00 Additional Labs: Accuchecks 10/20/17 10/20/17 10/19/17 10:56 05:15 21:27 POC Glucose 96 102 114 H 10/19/17 10/19/17 10/18/17 16:28 11:18 16:42 POC Glucose 128 H 118 H 108 10/18/17 10/18/17 12:00 06:24 POC Glucose 108 98 Phys Exam - Physical Examination Constitutional: NAD HEENT: PERRLA Neck: no JVD Respiratory: no rales Cardiovascular: no significant murmur Gastrointestinal: non-tender Musculoskeletal: pulses present Neurological: moves all 4 limbs rt side hemiparesis Psychiatric: A&O x 3 Dx/Plan (1) Esophagitis Code(s): K20.9 - ESOPHAGITIS, UNSPECIFIED Status: Acute (2) Iron deficiency Code(s): E61.1 - IRON DEFICIENCY Status: Acute (3) Severe anemia Code(s): D64.9 - ANEMIA, UNSPECIFIED Status: Acute (4) Moderate protein malnutrition Code(s): E44.0 - MODERATE PROTEIN-CALORIE MALNUTRITION Status: Chronic (5) Hypokalemia Code(s): E87.6 - HYPOKALEMIA Status: Acute (6) Seizure Code(s): R56.9 - UNSPECIFIED CONVULSIONS Status: Acute (7) Aphasia Code(s): R47.01 - APHASIA Status: Chronic (8) DM type 2 (diabetes mellitus, type 2) Status: Chronic - Plan * monitor h/h * case mx to help with placement
--- NOTE | 2017-10-20 13:42 | ADD-DIS ---
Please consider this as an addendum to the discharge summary dictated yesterday on 10/19/2017. The p atient had to stay out here overnight for getting clearance from the insurance. His overnight stay w as uneventful. Insurance has cleared the patient to go to a group home facility. The patient i s right now medically stable to be discharged with followup as dictated as in the early discharge sum naresh. He is asked to follow up with PCP and Cardiology as an outpatient. He is right now medically stable to be transferred.
[2017-10-20 17:14] VITALS: BP 145/75; TEMP 99.2
--- NOTE | 2017-11-12 18:41 | EKG ---
Test Reason : Blood Pressure : / mmHG Vent. Rate : 106 BPM Atrial Rate : 106 BPM P-R Int : 190 ms QRS Dur : 090 ms QT Int : 364 ms P-R-T Axes : 070 055 065 degrees QTc Int : 483 ms Sinus tachycardia Otherwise normal ECG Confirmed by ISH MANCIA MD [id number]), senior editor VANESSA MURRAY ([id number]) on 11/12/2017 6:40:20 PM Referred By: Confirmed By:ISH MANCIA MD
== END 2017-10-20 17:45 | DRG 812 ==
LOC: ERS 19:08 → T4-A 22:55
PROVIDERS: ADMIT Family Medicine; ATTEND Family Medicine
PROC: 30233N1 Transfusion of Nonautologous Red Blood Cells into Peripheral Vein, Percutaneous Approach (ICD-10-PCS; 2017-10-12)
PROC: 0DJ08ZZ Inspection of Upper Intestinal Tract, Via Natural or Artificial Opening Endoscopic (ICD-10-PCS; principal; 2017-10-14)
PROC: 0DJD8ZZ Inspection of Lower Intestinal Tract, Via Natural or Artificial Opening Endoscopic (ICD-10-PCS; 2017-10-14)
DX: D50.9 Iron deficiency anemia, unspecified (principal); R64 Cachexia; E44.0 Moderate protein-calorie malnutrition; I69.151 Hemiplegia and hemiparesis following nontraumatic intracerebral hemorrhage affecting right dominant side; B37.81 Candidal esophagitis; E87.1 Hypo-osmolality and hyponatremia; E11.9 Type 2 diabetes mellitus without complications; I48.2 Chronic atrial fibrillation; E03.9 Hypothyroidism, unspecified; Z68.1 Body mass index [BMI] 19.9 or less, adult; G40.909 Epilepsy, unspecified, not intractable, without status epilepticus; E78.5 Hyperlipidemia, unspecified; I69.120 Aphasia following nontraumatic intracerebral hemorrhage; I10 Essential (primary) hypertension; Z85.3 Personal history of malignant neoplasm of breast; Z85.42 Personal history of malignant neoplasm of other parts of uterus; Z90.11 Acquired absence of right breast and nipple; Z79.84 Long term (current) use of oral hypoglycemic drugs; Z79.82 Long term (current) use of aspirin; Z88.0 Allergy status to penicillin; Z88.8 Allergy status to other drugs, medicaments and biological substances; K44.9 Diaphragmatic hernia without obstruction or gangrene; E87.6 Hypokalemia; D62 Acute posthemorrhagic anemia; R62.7 Adult failure to thrive
CPT/HCPCS: 36415; 36416; 36430; 51701; 71010; 74177; 80048; 80053; 81003; 82274; 82550; 82553; 82728; 83540; 83550; 83880; 84484; 85007; 85014; 85018; 85025; 85027; 85049; 85060; 85610; 85730; 86850; 86900; 86901; 93005; 96360; 96361; A4216; A4353; G8978-GP-CM; G8979-GP-CL; G8987-GO-CM; G8988-GO-CK; J0360; J2704; P9016; Q0162; S0028; S0179

== ENCOUNTER 2018-01-09 14:35 | Inpatient (IN) | payer MEDICARE ==
[2018-01-09 19:17] LABS: #Eosinphils 0.1 thou/uL (0.0-0.7); #Lymphocytes 0.8 thou/uL (1.20-3.40); #Monocytes 0.8 thou/uL (0.11-0.59); #Neutrophils 10.8 thou/uL (1.40-6.50); %Basophils 0.2 % (0.0-1.0); %Eosinophils 0.8 % (0.0-10.0); %Lymphocytes 6.2 % (21.0-51.0); %Monocytes 6.3 % (0.0-10.0); %Neutrophils 86.4 % (42.0-75.0); Hemoglobin 9.8 g/dL (12.0-16.0); Mean Corpuscular HGB CONC 31.4 g/dL (32.0-36.0); Mean Corpuscular Hemoglobin 29.6 pg (27.0-31.0); Mean Corpuscular Volume 94.2 fl (81.0-99.0); Mean Platelet Volume 5.7 fL (7.4-10.4); Platelet Count 615 thou/uL (130-400); RBC Distribution Width 19.1 % (11.5-14.5); Red Blood Cell (RBC) Count 3.29 mill/uL (4.20-5.40); White Blood Cell (WBC) Count 12.4 thou/uL (4.8-10.8)
[2018-01-09 19:23] LABS: INR-International Normal Ratio 1.1; PTT 31.2 SEC (22.9-36.1); Prothrombin Time 14.2 SEC (12.0-14.7)
[2018-01-09 19:35] LABS: ALT (SGPT) 23 U/L (8-55); AST (SGOT) 19 U/L (5-34); Albumin 2.6 g/dL (3.4-4.8); Alkaline Phosphatase 111 U/L (40-150); Anion Gap 9 mmol/L (10-20); BUN (Urea Nitrogen) 21 mg/dL (9.8-20.1); Bilirubin, Total 0.2 mg/dL (0.2-1.2); Calc. Creatinine Clearance 0 mL/min (70-130); Calcium 8.3 mg/dL (7.8-10.44); Carbon Dioxide 28 mmol/L (23-31); Chloride 104 mmol/L (98-107); Estimated GFR-MDRD Greater than 90; Globulin 3.3 g/dL (2.4-3.5); Glucose 90 mg/dL (83-110); Potassium 4.9 mmol/L (3.5-5.1); Protein, Total 5.9 g/dL (6.0-8.3); Sodium 136 mmol/L (136-145)
[2018-01-09 19:38] LABS: Anisocytosis MODERATE=16-30 cells (100X) (0-5/hpf); MDiff Complete? YES; PLT Morphology Comment Appears Increased; Polychromasia SLIGHT = 2-3 cells (100X) (0-2/hpf)
--- NOTE | 2018-01-09 20:16 | RAD ---
SINGLE VIEW OF THE CHEST: Comparison: None. History: Weakness, chronic cycle wounds. FINDINGS: Single view of the chest shows a normal sized cardiomediastinal silhouette with atherosclerotic calci fications in the aorta. There is no evidence of consolidation, mass, or pleural effusion. Surgical cl ips are over the right chest wall. There is a chronic fracture of the right humerus. IMPRESSION: 1. No evidence of acute cardiopulmonary disease. 2. Chronic right humeral fracture. POS: [facility]
--- NOTE | 2018-01-09 20:21 | RAD ---
SINGLE VIEW OF THE PELVIS: Comparison: CT abdomen/pelvis 10-16-17. History: Sacral ulcers. FINDINGS: Single view of the pelvis shows a chronic fracture of the right femoral neck. There is foreshortening of the right femur. No osseous erosions are seen. No acute fracture or dislocation are seen. IMPRESSION: Chronic right femoral neck fracture. POS: [facility]
[2018-01-09 20:30] LABS: Bilirubin Negative (Negative); Blood, Urine Negative (Negative); Clarity CLOUDY (Clear); Glucose, Urine (Dipstick) Negative (Negative); Leukocyte Moderate (Negative); Nitrite Negative (Negative); Protein, Urine (Dipstick) Negative (Neg-Trace); Specific Gravity, Urine 1.012 (1.002-1.036); pH, Urine 6.5 (5.0-9.0)
[2018-01-09 20:32] LABS: Bacteria/HPF 4+ HPF (None Seen); Hyaline Casts/LPF 0-3 HYALINE CAST LPF (0-3 Hyaline); Pathc Cast-AUWi Flag 0.14 (0-2.49); RBC/HPF None Seen HPF (0-3); Squamous Epithelial None Seen HPF (0-3); WBC/HPF 21-50 HPF (0-3); Yeast-AUWi Flag 13.8 (0-25.0)
[2018-01-09] MEDS ORDERED: Piperacillin/Tazobactam 3.375 GM VIAL ONE (21:35)
[2018-01-10 00:29] VITALS: BMI 15.4
[2018-01-10 00:32] LABS: Lactic Acid 2.1 mmol/L (0.5-2.2)
[2018-01-10] MEDS ORDERED: Ondansetron HCl/PF 4 MG/2 ML Vial IVP PRN ×2 (02:49→12:22)
[2018-01-10] MEDS ORDERED: Zolpidem Tartrate 5 MG TAB PO PRN (02:49)
[2018-01-10] MEDS ORDERED: HYDROcodone/Acetaminophen 5/325 mg Tablet PO PRN (02:49)
[2018-01-10 05:00] LABS: #Eosinphils 0.2 thou/uL (0.0-0.7); #Lymphocytes 0.8 thou/uL (1.20-3.40); #Monocytes 0.7 thou/uL (0.11-0.59); #Neutrophils 8.7 thou/uL (1.40-6.50); %Basophils 0.1 % (0.0-1.0); %Eosinophils 1.6 % (0.0-10.0); %Lymphocytes 7.3 % (21.0-51.0); %Monocytes 7.1 % (0.0-10.0); %Neutrophils 83.8 % (42.0-75.0); Hemoglobin 9.1 g/dL (12.0-16.0); Mean Corpuscular HGB CONC 32.5 g/dL (32.0-36.0); Mean Corpuscular Hemoglobin 30.5 pg (27.0-31.0); Mean Corpuscular Volume 94.1 fl (81.0-99.0); Mean Platelet Volume 5.6 fL (7.4-10.4); Platelet Count 557 thou/uL (130-400); RBC Distribution Width 18.8 % (11.5-14.5); Red Blood Cell (RBC) Count 2.96 mill/uL (4.20-5.40); White Blood Cell (WBC) Count 10.4 thou/uL (4.8-10.8)
[2018-01-10 05:12] LABS: Anion Gap 10 mmol/L (10-20); BUN (Urea Nitrogen) 16 mg/dL (9.8-20.1); Calc. Creatinine Clearance 66 mL/min (70-130); Carbon Dioxide 24 mmol/L (23-31); Chloride 108 mmol/L (98-107); Estimated GFR-MDRD Greater than 90; Glucose 84 mg/dL (83-110); Potassium 4.7 mmol/L (3.5-5.1); Sodium 137 mmol/L (136-145)
[2018-01-10] MEDS: Clindamycin/D5W 600 MG in Premix Bag 1 BAG IVPB SCH ×3 (05:31→20:28)
[2018-01-10] MEDS: HYDROcodone/Acetaminophen 10/325 mg Tablet PO PRN (05:39)
[2018-01-10] MEDS: Famotidine/PF 20 mg/2ml Vial SLOW IVP SCH ×2 (08:39→20:28)
[2018-01-10] MEDS ORDERED: Vancomycin HCl 500 MG in Sodium Chloride 0.9% 100 ML IVPB SCH ×2 (09:00→14:00)
--- NOTE | 2018-01-10 10:19 | CON ---
DATE OF CONSULTATION: 01/10/2018 REQUESTING PHYSICIAN: Ap Danielle D.O. HISTORY OF PRESENT ILLNESS: This is a 72-year-old woman with history of previous cerebrovascular acc ident which has rendered her aphasic. The patient was brought to the emergency department by her eld calvin spouse who gives a history of worsening sacral decubitus ulcer. According to the patient's husb and, this has been present over the last several weeks. He has taken the patient to wound care over the last 3 weeks without any resolution. In fact, the sacral decubitus also appears to have worsened . According to the patient's , the ulcer is now wider and deeper with associated foul smellin g. The patient has had no fevers or chills. PAST MEDICAL HISTORY: Significant for left cerebrovascular accident with right hemiparesis. Other p ertinent past medical history includes type 2 diabetes mellitus, hypothyroidism, essential hypertensi on, breast and uterine carcinoma. SURGICAL HISTORY: Pertinent for right modified radical mastectomy, hysterectomy, PEG tube placement and subsequent removal. SOCIAL HISTORY: The patient has no history of cigarette smoking, ethanol or illicit drug abuse. FAMILY HISTORY: Noncontributory for this patient's age. MEDICATIONS: I have reviewed her numerous current medications. ALLERGIES: PENICILLIN and VALPROIC ACID. REVIEW OF SYSTEMS: Could not be obtained as patient currently is aphasic. PHYSICAL EXAMINATION: GENERAL: This reveals a 72-year-old woman status post cerebrovascular accident with right hemiparesi s. The patient otherwise appears to be in no acute distress at the time of my evaluation. VITAL SIGNS: Includes blood pressure 133/62, pulse 84, respiratory rate is 14, temperature 98.5 degr ees Fahrenheit, and oxygen saturation is 100% on room air. HEENT: Examination reveals normocephalic and atraumatic. HEART: Reveals regular rate and rhythm. No murmurs or gallops auscultated. LUNGS: Clear to auscultation bilaterally. Breathing is regular and unlabored. ABDOMEN: Soft, nontender, and nondistended. EXTREMITIES: Reveals 2+ radial and pedal pulses bilaterally. She has bilateral pitting ankle edema present. MUSCULOSKELETAL: Examination reveals 5 x 4 x 2 cm infected sacral decubitus ulcer with exposed sacru m. There is purulence associated with the necrotic subcutaneous fat and skin. The ulcer tunnels 2-3 cm in the superior aspect and 1 cm inferiorly. LABORATORY DATA: Pertinent laboratory findings today includes CBC with 10,400 white blood cells, hem oglobin 9.1, hematocrit is 27.9, platelet count 557,000. Metabolic profile: Sodium 137, potassium 4 .7, chloride is 108, bicarbonate 24, BUN 16, creatinine 0.56, glucose 84. IMPRESSION: A 5 x 4 x 2 cm infected stage IV sacral decubitus ulcer. RECOMMENDATIONS: Excisional debridement of the infected sacral decubitus ulcer. Above findings and plan will be communicated to the patient's spouse. Thank you again Dr. Danielle for allowing me the opportunity to participate in the care of this patien t.
[2018-01-10] MEDS ORDERED: Fentanyl 250 MCG/5 ML VIAL ONE (10:49)
[2018-01-10] MEDS ORDERED: Promethazine HCl 25 MG/ML VIAL SLOW IVP PRN (12:22)
[2018-01-10] MEDS ORDERED: Morphine Sulfate 2 MG/ML SYRINGE SLOW IVP PRN (12:22)
--- NOTE | 2018-01-10 12:29 | OP ---
DATE OF OPERATION: 01/10/2018 PREOPERATIVE DIAGNOSIS: Infected stage IV sacral decubitus ulcer. POSTOPERATIVE DIAGNOSIS: A 5 x 4 x 2 cm infected stage IV sacral decubitus ulcer. PROCEDURES PERFORMED: Excisional debridement of infected sacral decubitus ulcer. SURGEON: Francois Joy D.O. ANESTHESIA: General endotracheal. ESTIMATED BLOOD LOSS: Less than 5 mL. COUNTS: Sponge and instrument count certified as correct x2. COMPLICATIONS: None apparent at time of operation. INDICATIONS FOR PROCEDURE: A 72-year-old woman status post cerebrovascular accident with a right hemiparesis. The patient presented with worsening infected sacral decubitus ulcer requiring excision. DESCRIPTION OF PROCEDURE: Informed consent obtained from the patient's . The patient was brought to the operating room and placed in supine position. Following general anesthesia, she was placed in the prone position. The buttocks was widely prepped and draped in usual fashion. A 5 x 4 x 2 cm sacral decubitus ulcer is noted. Necrotic skin edges were sharply debrided using a scalpel. Necrotic subcutaneous tissues were divided using Metzenbaum scissors. Hemostasis was achieved using cautery. Wound bed is irrigated with saline and was then dressed with wound VAC. The patient tolerated the operation without any apparent complication and was returned to the recovery room in stable condition. DIPTI
[2018-01-10] MEDS ORDERED: Acetaminophen 650 MG Suppository PR PRN (13:54)
[2018-01-10] MEDS ORDERED: Dextrose 50% Abboject 50 ML SYRINGE SLOW IVP PRN (13:54)
[2018-01-10] MEDS ORDERED: HumaLOG 300 UNITS/3 ML VIAL SC PRN (13:54)
[2018-01-10] MEDS ORDERED: Acetaminophen 325 MG TAB PO PRN (13:54)
[2018-01-10] MEDS ORDERED: Dextrose 5% in Water 1,000 ML IV PRN (13:54)
[2018-01-10] MEDS ORDERED: Bisacodyl 10 MG SUPP PR PRN (13:55)
[2018-01-10] MEDS ORDERED: diphenhydrAMINE 25 MG CAP PO PRN (13:55)
[2018-01-10] MEDS ORDERED: Mag-Al 1200 mg/1200 mg/30 ML UDCUP PO PRN (13:55)
--- NOTE | 2018-01-10 14:26 | HP ---
PRIMARY CARE PHYSICIAN: Dr. Yolette Franco CHIEF COMPLAINT: Sacral wounds. HISTORY OF PRESENT ILLNESS: Ms. Pat is a pleasant 72-year-old lady who was seen at [facility] on 01/10/2018. She was hospitalized at this facility towards the end of 09/2017 f or decreased appetite. She is aphasic, unable to answer questions reliably. REVIEW OF SYSTEMS: Review of systems could not be completed. History was obtained from review of medical chart as well as discussion with the emergency room physi joseph. The patient is nonverbal since a stroke in 2013. The patient's noticed sores on her back a f ew months ago. They have gotten worse. He has been taking her to Wound Care for the last 3 weeks. The sores were increasing in size and also getting deeper. He therefore brought her to the emergency room. There is no history of any fever or chills. Review of systems could not be completed because of patient's nonverbal status. PAST MEDICAL HISTORY: Significant for a left middle cerebrovascular accident with hemorrhagic conver kassie, recurrent seizures after cerebrovascular accident, expressive aphasia, right hemiparesis, hypot hyroidism, dyslipidemia, diabetes mellitus type 2, atrial flutter/fibrillation, hypertension, dysphag ia and breast and uterine carcinoma. PAST SURGICAL HISTORY: Significant for PEG tube placement with subsequent removal, right mastectomy and hysterectomy. FAMILY HISTORY: Positive for cerebrovascular accident. SOCIAL HISTORY: No history of tobacco use, alcohol use or recreational drug use. ALLERGIES: PENICILLIN and VALPROIC ACID. CURRENT MEDICATIONS: Metformin 500 mg daily, docusate 100 mg daily, anastrozole 1 mg daily, Levetira cetam 500 mg daily. Levothyroxine 175 mcg daily. Amiodarone 200 mg daily, aspirin 325 mg daily, saldivar toprazole 40 mg daily, and iron 65 mg daily. CODE STATUS: Code status could not be addressed because of her nonverbal status. We will revisit th e issue with the patient's family. PHYSICAL EXAMINATION: GENERAL: Ms. Pat is awake and alert, not in acute distress. VITAL SIGNS: Blood pressure is 133/62, pulse is 84. She is breathing at rate of 14 and saturating 1 00% on room air. She is afebrile. EYES: No scleral icterus. No conjunctival pallor. ENT: Moist mucosal membranes, no oropharyngeal erythema or exudates. NECK: Supple, nontender, normal range of movement. Trachea is midline. RESPIRATORY: Accessory muscles of breathing are not active. Chest wall movements are symmetric bila terally. LUNGS: Clear to auscultation without wheeze, rhonchi or crepitations. CARDIOVASCULAR: S1, S2 are heard, regular. Peripheral pulses palpable. No carotid bruit, no perica rdial rub. ABDOMEN: Soft, nontender, bowel sounds heard, no hepatomegaly, no splenomegaly. NEUROLOGIC: Right-sided hemiplegia. MUSCULOSKELETAL: Power is 5/5 in left upper and lower extremities. SKIN: She has 2 sacral decubitus ulcers, with granulation tissue at the base. LYMPHATIC: No cervical lymphadenopathy. PSYCHIATRIC: Patient is oriented to person, normal mood, unable to assess orientation to place or ti me. LABORATORY DATA: Ms. Camarillo labs and investigations were reviewed. I reviewed her electrocardiogram , which shows normal sinus rhythm, no ST changes to suggest an acute coronary syndrome. I also revie wed her chest x-ray, which does not show any pulmonary infiltrates. She has a chronic right humeral fracture. She also had an x-ray of the pelvis, which showed chronic right femoral neck fracture. Laboratory investigations show normal white count of 10,400, decreased from 12,400 yesterday, normocy tic anemia with hemoglobin 9.1, elevated platelet count of 557,000, ESR of 65, INR 1.1, normal sodiu m, normal potassium and low creatinine of 0.56. BNP is slightly elevated at 104.9. C-reactive prote in is elevated at 6.65. Lactic acid was initially elevated at 2.3, subsequently trended down to 2.1 in the normal range. Urinalysis is positive for leukocyte esterase. ASSESSMENT AND PLAN: Ms. Pat is a pleasant 72-year-old lady who was seen at [facility] on 01/10/2018. Her problem list includes: 1. Sacral decubitus ulcers: The patient will be admitted to the hospital for further management. S he will be treated with antibiotics. She has already been started on vancomycin, clindamycin, and le vofloxacin, which I will continue. Wound Care Service has been consulted. General Surgery Service h as also been consulted for possible debridement. 2. Urinary tract infection. Continue levofloxacin. 3. Diabetes mellitus. Start Accu-Cheks, insulin sliding scale. 4. History of cerebrovascular accident. Consult Speech Pathology to evaluate swallow function. 5. Hypothyroidism: Continue levothyroxine. 6. Anemia: Continue iron. 7. Thrombocythemia: Chronic, etiology unclear. Follow platelet counts. Many thanks for allowing me to participate in your patient's care. Please feel free to contact me wi th any questions or concerns. LEVEL OF RISK: High. LEVEL OF COMPLEXITY: High.
[2018-01-10] MEDS: Docusate 100 MG CAP PO SCH ×2 (14:44→20:28)
[2018-01-10] MEDS ORDERED: Glycopyrrolate 0.2 MG/ML 5 ML SYRINGE ONE (14:53)
[2018-01-10] MEDS ORDERED: PHENYLEPHRINE-NS 100 MCG/ML 10 ML SYRINGE ONE (14:53)
[2018-01-10] MEDS ORDERED: PROPOFOL 200 MG/20 ML VIAL ONE (14:53)
[2018-01-10] MEDS ORDERED: Lidocaine 1% PF 5 ML VIAL ONE (14:53)
[2018-01-10] MEDS: levETIRAcetam 500 MG TAB PO SCH (20:28)
[2018-01-10] MEDS ORDERED: Docusate 100 MG CAP PO SCH (21:00)
[2018-01-11] MEDS: Vancomycin HCl 500 MG in Sodium Chloride 0.9% 100 ML IVPB SCH ×2 (00:18→18:32)
[2018-01-11 04:57] LABS: #Eosinphils 0.2 thou/uL (0.0-0.7); #Lymphocytes 0.8 thou/uL (1.20-3.40); #Monocytes 0.8 thou/uL (0.11-0.59); #Neutrophils 7.6 thou/uL (1.40-6.50); %Basophils 0.1 % (0.0-1.0); %Lymphocytes 8.9 % (21.0-51.0); %Monocytes 8.3 % (0.0-10.0); %Neutrophils 80.7 % (42.0-75.0); Hemoglobin 8.5 g/dL (12.0-16.0); Mean Corpuscular HGB CONC 31.1 g/dL (32.0-36.0); Mean Corpuscular Hemoglobin 29.8 pg (27.0-31.0); Mean Corpuscular Volume 95.8 fl (81.0-99.0); Mean Platelet Volume 5.7 fL (7.4-10.4); Platelet Count 567 thou/uL (130-400); RBC Distribution Width 18.7 % (11.5-14.5); Red Blood Cell (RBC) Count 2.84 mill/uL (4.20-5.40); White Blood Cell (WBC) Count 9.4 thou/uL (4.8-10.8)
[2018-01-11 05:06] LABS: Anion Gap 7 mmol/L (10-20); BUN (Urea Nitrogen) 12 mg/dL (9.8-20.1); Calc. Creatinine Clearance 66 mL/min (70-130); Calcium 7.7 mg/dL (7.8-10.44); Carbon Dioxide 28 mmol/L (23-31); Chloride 106 mmol/L (98-107); Estimated GFR-MDRD Greater than 90; Glucose 76 mg/dL (83-110); Potassium 3.3 mmol/L (3.5-5.1); Sodium 138 mmol/L (136-145)
[2018-01-11] MEDS: Clindamycin/D5W 600 MG in Premix Bag 1 BAG IVPB SCH ×3 (05:20→20:47)
[2018-01-11] MEDS ORDERED: Levothyroxine 150 MCG TAB PO SCH (06:00)
[2018-01-11] MEDS: Anastrozole 1 MG TAB PO SCH (09:40)
[2018-01-11] MEDS: Famotidine/PF 20 mg/2ml Vial SLOW IVP SCH ×2 (09:42→20:47)
[2018-01-11] MEDS: Docusate 100 MG CAP PO SCH ×2 (09:42→20:47)
[2018-01-11] MEDS: Aspirin 325 MG TAB PO SCH (09:42)
[2018-01-11] MEDS: metFORMIN 500 MG TAB PO SCH (09:42)
[2018-01-11] MEDS: Amiodarone 200 MG TAB PO SCH (09:42)
[2018-01-11] MEDS: Enoxaparin Sodium 40 MG/0.4 ML SYRINGE SC SCH (09:43)
[2018-01-11 11:51] LABS: Vancomycin, Trough 12.3 ug/mL
[2018-01-11] MEDS: Vancomycin HCl 750 MG in Sodium Chloride 0.9% 250 ML 250 ML IVPB SCH (14:27)
[2018-01-11] MEDS: HYDROcodone/Acetaminophen 10/325 mg Tablet PO PRN (14:28)
--- NOTE | 2018-01-11 14:50 | PDOC.PN ---
- Subjective Encounter Start Date: 01/11/18 Encounter Start Time: 08:40 Pt seen for followup re: sacral decubitus ulcers. More alert today, answering questions. Denies chest pain or shortness fo breath. - Objective MAR Reviewed: Yes Vital Signs & Weight: Vital Signs (12 hours) Temp Pulse Resp BP Pulse Ox 01/11/18 12:00 99.1 F 81 16 124/77 100 01/11/18 08:00 98.7 F 82 16 132/74 100 01/11/18 04:00 98.5 F 84 18 117/69 97 Weight Admit Weight 101 lb 8 oz Weight 101 lb 8 oz I&O: 01/10/18 01/11/18 01/12/18 06:59 06:59 06:59 Intake Total 400 780 Balance 400 780 Result Diagrams: 01/11/18 04:06 01/11/18 04:06 Additional Labs: Accuchecks 01/11/18 01/11/18 01/10/18 11:37 04:03 17:00 POC Glucose 96 98 81 Phys Exam - Physical Examination Constitutional: NAD HEENT: PERRLA, moist MMs, sclera anicteric, oral pharynx no lesions Neck: no nodes, no JVD, supple, full ROM Respiratory: no wheezing, no rales, no rhonchi, clear to auscultation bilateral Cardiovascular: RRR, no rub Gastrointestinal: soft, non-tender, no distention, positive bowel sounds Musculoskeletal: edema present Neurological: moves all 4 limbs Psychiatric: normal affect Dx/Plan (1) Sacral decubitus ulcer Status: Acute Comment: s/p debridement and wound vac. Continue levofloxacin and vancomycin for now, consult ID for optimization of antibiotics and duration of therapy. (2) DM type 2 (diabetes mellitus, type 2) Status: Chronic Comment: Continue accuchecks, insulin sliding scale. (3) H/O: CVA (cerebrovascular accident) Code(s): Z86.73 - PRSNL HX OF TIA (TIA), AND CEREB INFRC W/O RESID DEFICITS Status: Chronic Comment: stable (4) HLD (hyperlipidemia) Code(s): E78.5 - HYPERLIPIDEMIA, UNSPECIFIED Status: Chronic (5) HTN (hypertension) Code(s): I10 - ESSENTIAL (PRIMARY) HYPERTENSION Status: Chronic Comment: Monitor vital signs, titrate antihypertensives as needed (6) Hypothyroidism Code(s): E03.9 - HYPOTHYROIDISM, UNSPECIFIED Status: Chronic Comment: continue thyroid replacement therapy (7) Moderate protein malnutrition Code(s): E44.0 - MODERATE PROTEIN-CALORIE MALNUTRITION Status: Chronic Comment: consult dietitian - Plan continue antibiotics, out of bed/ambulate, DVT proph w/lovenox * . Review of Systems - Review of Systems Constitutional: negative: fever, chills, sweats, weakness, malaise Respiratory: negative: Cough, Dry, Shortness of Breath, Hemoptysis, SOB with Excertion, Pleuritic Pain, Sputum, Wheezing Cardiovascular: negative: chest pain, palpitations, orthopnea, paroxysmal nocturnal dyspnea, edema, light headedness Gastrointestinal: negative: Nausea, Vomiting, Abdominal Pain, Diarrhea, Constipation, Melena, Hematochezia Musculoskeletal: Back Pain Skin: negative: Rash, Lesions, Ishmael, Bruising - Medications/Allergies Allergies/Adverse Reactions: Allergies Allergy/AdvReac Type Severity Reaction Status Date / Time Penicillins Allergy Verified 08/02/15 03:57 valproic acid Allergy SOMNOLENCE Verified 08/05/15 14:36 Medications: Current Medications Acetaminophen (Tylenol) 650 mg PO Q4H PRN PRN Reason: Headache/Fever or Pain Acetaminophen (Tylenol) 650 mg CA Q4H PRN PRN Reason: Headache/Fever or Pain Hydrocodone Bitart/Acetaminophen ([place] 10/325) 1 tab PO Q4H PRN PRN Reason: Moderate Pain (4-6) Last Admin: 01/11/18 14:28 Dose: 1 tab Hydrocodone Bitart/Acetaminophen ([place] 5/325) 1 tab PO Q4H PRN PRN Reason: Moderate Pain (4-6) Al Hydroxide/Mg Hydroxide (Maalox) 30 ml PO Q6H PRN PRN Reason: Heartburn or Indigestion Amiodarone HCl (Cordarone) 200 mg PO DAILY [facility] Last Admin: 01/11/18 09:42 Dose: 200 mg Anastrozole (Arimidex) 1 mg PO DAILY [facility] Last Admin: 01/11/18 09:40 Dose: 1 mg Aspirin (Aspirin) 325 mg PO DAILY [facility] Last Admin: 01/11/18 09:42 Dose: 325 mg Bisacodyl (Dulcolax) 10 mg CA Q24H PRN PRN Reason: Constipation Dextrose/Water (Dextrose 50%) 25 gm SLOW IVP PRN PRN PRN Reason: Hypoglycemia Diphenhydramine HCl (Benadryl) 25 mg PO Q6HR PRN PRN Reason: Allergies Docusate Sodium (Colace) 100 mg PO BID [facility] Last Admin: 01/11/18 09:42 Dose: 100 mg Docusate Sodium (Colace) 100 mg PO HS [facility] Last Admin: 01/10/18 19:53 Dose: Not Given Enoxaparin Sodium (Lovenox) 40 mg SC 0900 [facility] Last Admin: 01/11/18 09:43 Dose: 40 mg Famotidine (Pepcid) 20 mg SLOW IVP Q12HR [facility] Last Admin: 01/11/18 09:42 Dose: 20 mg Glucagon (Glucagon) 1 mg IM PRN PRN PRN Reason: Hypoglycemia Clindamycin Phosphate/Dextrose (600 mg/ Device) 50 mls @ 100 mls/hr IVPB Q8HR [facility] Last Admin: 01/11/18 13:51 Dose: 50 mls Levofloxacin 500 mg/ Device 100 mls @ 100 mls/hr IVPB Q24HR [facility] Last Admin: 01/11/18 04:18 Dose: 100 mls Dextrose/Water (D5w) 1,000 mls @ 0 mls/hr IV .Q0M PRN; As Directed PRN Reason: Hypoglycemia Vancomycin HCl 750 mg/ Sodium (Chloride) 250 mls @ 250 mls/hr IVPB 0100,1300 [facility] Last Admin: 01/11/18 14:27 Dose: 250 mls Insulin Human Lispro (Humalog) 0 units SC .MILD SLIDING SCALE PRN PRN Reason: Mild Correctional Scale Levetiracetam (Keppra) 500 mg PO [facility] Last Admin: 01/10/18 20:28 Dose: 500 mg Levothyroxine Sodium (Synthroid) 175 mcg PO 0600 [facility] Last Admin: 01/11/18 05:17 Dose: 175 mcg Metformin HCl (Glucophage) 500 mg PO [facility] Last Admin: 01/11/18 09:42 Dose: 500 mg Ondansetron HCl (Zofran) 4 mg IVP Q6H PRN PRN Reason: Nausea/Vomiting Pantoprazole Sodium (Protonix) 40 mg PO 2100 [facility] Last Admin: 01/10/18 20:28 Dose: 40 mg Sodium Chloride (Flush - Normal Saline) 10 ml IVF Q12HR [facility] Last Admin: 01/11/18 09:51 Dose: 10 ml Sodium Chloride (Flush - Normal Saline) 10 ml IVF PRN PRN PRN Reason: Saline Flush Zolpidem Tartrate (Ambien) 5 mg PO HSPRN PRN PRN Reason: Insomnia
--- NOTE | 2018-01-11 20:39 | PRG ---
DATE OF SERVICE: 01/11/2018 ATTENDING PHYSICIAN: Francois Joy D.O. SUBJECTIVE: Ms. 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 Surgery was consulted yesterday for worsening sacral decubitus ulcer. The patient was taken to the OR for excisional debridement of her infected ulcer. The patient is seen today on the medicine floor postop day #1. She has a wound VAC in place. OBJECTIVE: VITAL SIGNS: Blood pressure 132/74, pulse 82, temperature 98.7, respirations 16 , O2 sat 100% on room air. GENERAL: The patient is a thin-appearing adult female, in no acute distress. HEENT: Normocephalic and atraumatic. RESPIRATORY: Breath sounds are clear to auscultation bilaterally. CARDIOVASCULAR: She has regular rate and rhythm. No murmurs, gallops or rubs. EXTREMITIES: The patient moves all extremities. She has a wound VAC in place in the area of her surgery. NEUROLOGIC: The patient is aphasic. LABORATORY DATA: Hematology: WBC is 9.4, hemoglobin 8.5, hematocrit 27.2, platelets 567. Chemistry: Sodium 138, potassium 3.3, chloride 106, bicarbonate 28, BUN 12, creatinine 0.56, glucose 76, calcium 7.7. IMAGING: There are no images to review. ASSESSMENT: Sacral decubitus ulcer. PLAN: 1. The patient is currently being seen by Wound Care. We have instructed Wound Care to contact Surgery should there be any changes to the patient's condition. 2. Continue antibiotics as ordered. 3. Surgery will sign off of this patient at this time. Please do not hestitate to contact us for questions or further consultation. Thank you for allowing us to be involved in the care of this patient. This patient was seen and examined along with Dr. Francois Joy, who agrees with this assessment and plan. [facility]OSPITALLeonard
[2018-01-11] MEDS: levETIRAcetam 500 MG TAB PO SCH (20:47)
[2018-01-12] MEDS: Vancomycin HCl 750 MG in Sodium Chloride 0.9% 250 ML 250 ML IVPB SCH ×2 (00:09→16:02)
[2018-01-12 04:49] LABS: #Eosinphils 0.2 thou/uL (0.0-0.7); #Lymphocytes 0.8 thou/uL (1.20-3.40); #Monocytes 0.6 thou/uL (0.11-0.59); #Neutrophils 4.9 thou/uL (1.40-6.50); %Eosinophils 2.7 % (0.0-10.0); %Lymphocytes 11.6 % (21.0-51.0); %Monocytes 9.6 % (0.0-10.0); Hemoglobin 8.3 g/dL (12.0-16.0); Mean Corpuscular HGB CONC 32.3 g/dL (32.0-36.0); Mean Corpuscular Hemoglobin 29.9 pg (27.0-31.0); Mean Corpuscular Volume 92.6 fl (81.0-99.0); Mean Platelet Volume 5.6 fL (7.4-10.4); Platelet Count 511 thou/uL (130-400); RBC Distribution Width 18.1 % (11.5-14.5); Red Blood Cell (RBC) Count 2.77 mill/uL (4.20-5.40); White Blood Cell (WBC) Count 6.5 thou/uL (4.8-10.8)
[2018-01-12 05:02] LABS: Anion Gap 7 mmol/L (10-20); BUN (Urea Nitrogen) 12 mg/dL (9.8-20.1); Calc. Creatinine Clearance 64 mL/min (70-130); Calcium 7.6 mg/dL (7.8-10.44); Carbon Dioxide 26 mmol/L (23-31); Chloride 105 mmol/L (98-107); Estimated GFR-MDRD Greater than 90; Glucose 70 mg/dL (83-110); Potassium 3.2 mmol/L (3.5-5.1); Sodium 135 mmol/L (136-145)
[2018-01-12] MEDS: Clindamycin/D5W 600 MG in Premix Bag 1 BAG IVPB SCH ×2 (05:53→15:23)
[2018-01-12] MEDS: Levothyroxine 175 MCG TAB PO SCH (05:53)
[2018-01-12] MEDS: HYDROcodone/Acetaminophen 10/325 mg Tablet PO PRN ×3 (09:53→20:21)
[2018-01-12] MEDS: Enoxaparin Sodium 40 MG/0.4 ML SYRINGE SC SCH (09:56)
[2018-01-12] MEDS: Famotidine/PF 20 mg/2ml Vial SLOW IVP SCH ×2 (09:56→20:13)
[2018-01-12] MEDS: Docusate 100 MG CAP PO SCH ×2 (09:57→20:13)
[2018-01-12] MEDS: Amiodarone 200 MG TAB PO SCH (09:57)
[2018-01-12] MEDS: Aspirin 325 MG TAB PO SCH (09:57)
[2018-01-12] MEDS: metFORMIN 500 MG TAB PO SCH (09:57)
[2018-01-12] MEDS: Anastrozole 1 MG TAB PO SCH (09:58)
--- NOTE | 2018-01-12 12:38 | PDOC.PN ---
- Subjective Encounter Start Date: 01/12/18 Encounter Start Time: 08:40 Pt seen for followup re: sacral wounds. Feels better. No fevers or chills. No nausea or vomiting. - Objective MAR Reviewed: Yes Vital Signs & Weight: Vital Signs (12 hours) Temp Pulse Resp BP Pulse Ox 01/12/18 08:00 97.9 F 92 20 154/82 H 98 01/12/18 04:00 98.2 F 85 18 134/76 99 Weight Admit Weight 101 lb 8 oz Weight 101 lb 8 oz I&O: 01/11/18 01/12/18 01/13/18 06:59 06:59 06:59 Intake Total 780 Balance 780 Result Diagrams: 01/12/18 03:36 01/12/18 03:36 Additional Labs: Accuchecks 01/12/18 01/11/18 01/11/18 05:35 20:47 17:01 POC Glucose 93 115 H 84 Phys Exam - Physical Examination Constitutional: NAD HEENT: PERRLA, moist MMs, sclera anicteric, oral pharynx no lesions Neck: no nodes, no JVD, supple, full ROM Respiratory: no wheezing, no rales, no rhonchi, clear to auscultation bilateral Cardiovascular: RRR, no rub Gastrointestinal: soft, non-tender, no distention, positive bowel sounds Musculoskeletal: pulses present, edema present R hemiparesis Psychiatric: normal affect Dx/Plan (1) Sacral decubitus ulcer Status: Acute Comment: s/p debridement and wound vac. Continue levofloxacin and vancomycin for now. ID consult pending. (2) DM type 2 (diabetes mellitus, type 2) Status: Chronic Comment: accuchecks, insulin sliding scale. (3) H/O: CVA (cerebrovascular accident) Code(s): Z86.73 - PRSNL HX OF TIA (TIA), AND CEREB INFRC W/O RESID DEFICITS Status: Chronic Comment: stable (4) HLD (hyperlipidemia) Code(s): E78.5 - HYPERLIPIDEMIA, UNSPECIFIED Status: Chronic (5) HTN (hypertension) Code(s): I10 - ESSENTIAL (PRIMARY) HYPERTENSION Status: Chronic Comment: titrate antihypertensives as needed (6) Hypothyroidism Code(s): E03.9 - HYPOTHYROIDISM, UNSPECIFIED Status: Chronic Comment: continue thyroid replacement therapy (7) Moderate protein malnutrition Code(s): E44.0 - MODERATE PROTEIN-CALORIE MALNUTRITION Status: Chronic Comment: appreciate dietitian input - Plan * . Review of Systems - Review of Systems Constitutional: negative: fever, chills, sweats, weakness, malaise Respiratory: negative: Cough, Dry, Shortness of Breath, Hemoptysis, SOB with Excertion, Pleuritic Pain, Sputum, Wheezing Cardiovascular: negative: chest pain, palpitations, orthopnea, paroxysmal nocturnal dyspnea, edema, light headedness Gastrointestinal: negative: Nausea, Vomiting, Abdominal Pain, Diarrhea, Constipation, Melena, Hematochezia Musculoskeletal: negative: Neck Pain, Shoulder Pain, Arm Pain, Back Pain, Hand Pain, Leg Pain, Foot Pain - Medications/Allergies Allergies/Adverse Reactions: Allergies Allergy/AdvReac Type Severity Reaction Status Date / Time Penicillins Allergy Verified 08/02/15 03:57 valproic acid Allergy SOMNOLENCE Verified 08/05/15 14:36 Medications: Current Medications Acetaminophen (Tylenol) 650 mg PO Q4H PRN PRN Reason: Headache/Fever or Pain Acetaminophen (Tylenol) 650 mg [place] Q4H PRN PRN Reason: Headache/Fever or Pain Hydrocodone Bitart/Acetaminophen ([place] 10/325) 1 tab PO Q4H PRN PRN Reason: Moderate Pain (4-6) Last Admin: 01/12/18 09:53 Dose: 1 tab Hydrocodone Bitart/Acetaminophen ([place] 5/325) 1 tab PO Q4H PRN PRN Reason: Moderate Pain (4-6) Al Hydroxide/Mg Hydroxide (Maalox) 30 ml PO Q6H PRN PRN Reason: Heartburn or Indigestion Amiodarone HCl (Cordarone) 200 mg PO DAILY [facility] Last Admin: 01/12/18 09:57 Dose: 200 mg Anastrozole (Arimidex) 1 mg PO DAILY [facility] Last Admin: 01/12/18 09:58 Dose: 1 mg Aspirin (Aspirin) 325 mg PO DAILY [facility] Last Admin: 01/12/18 09:57 Dose: 325 mg Bisacodyl (Dulcolax) 10 mg [place] Q24H PRN PRN Reason: Constipation Dextrose/Water (Dextrose 50%) 25 gm SLOW IVP PRN PRN PRN Reason: Hypoglycemia Diphenhydramine HCl (Benadryl) 25 mg PO Q6HR PRN PRN Reason: Allergies Docusate Sodium (Colace) 100 mg PO BID [facility] Last Admin: 01/12/18 09:57 Dose: 100 mg Enoxaparin Sodium (Lovenox) 40 mg SC 0900 [facility] Last Admin: 01/12/18 09:56 Dose: 40 mg Famotidine (Pepcid) 20 mg SLOW IVP Q12HR [facility] Last Admin: 01/12/18 09:56 Dose: 20 mg Glucagon (Glucagon) 1 mg IM PRN PRN PRN Reason: Hypoglycemia Clindamycin Phosphate/Dextrose (600 mg/ Device) 50 mls @ 100 mls/hr IVPB Q8HR [facility] Last Admin: 01/12/18 05:53 Dose: 50 mls Levofloxacin 500 mg/ Device 100 mls @ 100 mls/hr IVPB Q24HR [facility] Last Admin: 01/12/18 02:22 Dose: 100 mls Dextrose/Water (D5w) 1,000 mls @ 0 mls/hr IV .Q0M PRN; As Directed PRN Reason: Hypoglycemia Vancomycin HCl 750 mg/ Sodium (Chloride) 250 mls @ 250 mls/hr IVPB 0100,1300 [facility] Last Admin: 01/12/18 00:09 Dose: 250 mls Insulin Human Lispro (Humalog) 0 units SC .MILD SLIDING SCALE PRN PRN Reason: Mild Correctional Scale Levetiracetam (Keppra) 500 mg PO HS [facility] Last Admin: 01/11/18 20:47 Dose: 500 mg Levothyroxine Sodium (Synthroid) 175 mcg PO 0600 [facility] Last Admin: 01/12/18 05:53 Dose: 175 mcg Metformin HCl (Glucophage) 500 mg PO QAM-[facility] Last Admin: 01/12/18 09:57 Dose: 500 mg Ondansetron HCl (Zofran) 4 mg IVP Q6H PRN PRN Reason: Nausea/Vomiting Pantoprazole Sodium (Protonix) 40 mg PO 2100 [facility] Last Admin: 01/11/18 20:47 Dose: 40 mg Sodium Chloride (Flush - Normal Saline) 10 ml IVF Q12HR [facility] Last Admin: 01/12/18 10:03 Dose: 10 ml Sodium Chloride (Flush - Normal Saline) 10 ml IVF PRN PRN PRN Reason: Saline Flush Zolpidem Tartrate (Ambien) 5 mg PO HSPRN PRN PRN Reason: Insomnia
[2018-01-12] MEDS ORDERED: cefTRIAXone\\ROCEPHIN 1 GM in Sodium Chloride 0.9% 100 ML IVPB SCH (16:45)
[2018-01-12] MEDS: cefTRIAXone\\ROCEPHIN 1 GM, Syringe 0.4 ML in Sterile Water 9.6 ML SLOW IVP SCH (19:36)
[2018-01-12] MEDS: levETIRAcetam 500 MG TAB PO SCH (20:13)
[2018-01-13 00:35] LABS: Vancomycin, Trough 16.3 ug/mL
[2018-01-13] MEDS: Vancomycin HCl 750 MG in Sodium Chloride 0.9% 250 ML 250 ML IVPB SCH ×2 (00:52→12:03)
[2018-01-13] MEDS: HYDROcodone/Acetaminophen 10/325 mg Tablet PO PRN (01:42)
[2018-01-13 04:38] LABS: #Eosinphils 0.2 thou/uL (0.0-0.7); #Lymphocytes 0.8 thou/uL (1.20-3.40); #Monocytes 0.9 thou/uL (0.11-0.59); #Neutrophils 7.4 thou/uL (1.40-6.50); %Basophils 0.1 % (0.0-1.0); %Eosinophils 1.9 % (0.0-10.0); %Lymphocytes 8.6 % (21.0-51.0); %Monocytes 9.8 % (0.0-10.0); %Neutrophils 79.7 % (42.0-75.0); Hemoglobin 9.4 g/dL (12.0-16.0); Mean Corpuscular HGB CONC 32.2 g/dL (32.0-36.0); Mean Corpuscular Hemoglobin 29.9 pg (27.0-31.0); Mean Corpuscular Volume 92.9 fl (81.0-99.0); Mean Platelet Volume 5.5 fL (7.4-10.4); Platelet Count 544 thou/uL (130-400); Red Blood Cell (RBC) Count 3.13 mill/uL (4.20-5.40); White Blood Cell (WBC) Count 9.3 thou/uL (4.8-10.8)
[2018-01-13 05:08] LABS: Anion Gap 10 mmol/L (10-20); BUN (Urea Nitrogen) 15 mg/dL (9.8-20.1); Calc. Creatinine Clearance 65 mL/min (70-130); Calcium 7.8 mg/dL (7.8-10.44); Carbon Dioxide 25 mmol/L (23-31); Chloride 103 mmol/L (98-107); Estimated GFR-MDRD Greater than 90; Glucose 78 mg/dL (83-110); Potassium 3.9 mmol/L (3.5-5.1); Sodium 134 mmol/L (136-145)
[2018-01-13] MEDS: Levothyroxine 175 MCG TAB PO SCH (05:48)
[2018-01-13] MEDS: Enoxaparin Sodium 40 MG/0.4 ML SYRINGE SC SCH (09:14)
[2018-01-13] MEDS: Aspirin 325 MG TAB PO SCH (09:14)
[2018-01-13] MEDS: metFORMIN 500 MG TAB PO SCH (09:15)
[2018-01-13] MEDS: Docusate 100 MG CAP PO SCH ×2 (09:15→21:55)
[2018-01-13] MEDS: Amiodarone 200 MG TAB PO SCH (09:15)
[2018-01-13] MEDS: Anastrozole 1 MG TAB PO SCH (09:15)
[2018-01-13] MEDS ORDERED: pyridOXINE 50 MG (B6) TAB PO SCH (12:15)
--- NOTE | 2018-01-13 14:38 | CON ---
DATE OF CONSULTATION: 01/13/2018 REASON FOR CONSULTATION: Decubitus ulcer. 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 The patient had her CVA in 2013 and developed severe functional impairment. Following that she did receive tPA administration and developed a hemorrhage. Following that the patient had bilateral carotid evaluation which showed intimal thickening, but no plaque formation. The MRI done in 08/2014 showed subacute left MCA distribution with intraparenchymal hematoma involving the left globus pallidus. Patient required gastrostomy tube placement for management of oropharyngeal dysphagia. She was admitted to rehabilitation at the beginning of 2014. In 07/2015, she was admitted with seizure recurrence and she was then started on Dilantin because of allergy to KEPPRA and VALPROIC ACID. She had to have gastrostomy tube reinserted since the previous one had been removed due to persistence of swallowing dysfunction. At the end of 2016, patient was admitted with severe anemia which is felt to be due to iron deficiency. The patient was given a transfusion of 2 units of packed red blood cells and a gastrointestinal evaluation did not show any visible source, but she did have evidence of Alicia esophagitis. Throughout this period, this patient has been cared for by her and this time she is admitted because of worsening sacral wounds. She has developed those areas of pressure skin damage few months prior to admission. She was taken to wound care for the past 3 weeks and now has been admitted due to failure of management. There has been no reported fever or chills. No recurrence of seizure activity. Patient is nonverbal. It looks like oral feedings have been restarted and the gastrostomy tube has been removed. 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 FAMILY HISTORY: CVA. SOCIAL HISTORY: Never a smoker. , lives with who cares for her. ALLERGIES: PENICILLIN and VALPROIC ACID with rash. CURRENT MEDICATION LIST: Includes Tylenol, Galvin, Maalox, Cordarone, Arimidex, aspirin, Dulcolax, Rocephin, enoxaparin, Pepcid, insulin, Keppra, Synthroid, Glucophage, Zofran and vancomycin. PHYSICAL EXAMINATION: VITAL SIGNS: Temperature has been normal throughout the hospital stay. Blood pressure 130/74, pulse 77, respirations 16, O2 sat 97%-99%. SKIN: Exam demonstrates multiple areas of bruising. Skin fragility in the upper extremities extensor medial aspect mostly in the forearms and she has area of stage I pressure injury to the heel area, left side and Right side. She has this area of necrotic wound in the right side of the presacral region. Two irregular shaped ulcerations with a base covered by necrotic eschar. There is some undermining. There is no erythema or noticeable erythema surrounding the areas of ulceration. Patient has a peripheral IV access. No Donahue catheter. There is obvious malnutrition with temporal wasting and loss of subcutaneous tissue area and multiple skin surfaces. HEENT: Ocular movements appear to be conjugate. No nystagmus. Oral cavity is dry. She has numerous teeth in place with desiccation and gum disease. NECK: Somewhat stiff. No jugular vein distention. LUNGS: With regular rate and rhythm with few crackles at the bases. HEART: S1, S2, regular rate. No murmurs. ABDOMEN: Soft, nondistended or tender. No ascites. No bladder distention. No evidence of organomegaly. The patient is voiding spontaneously. EXTREMITIES: No joint inflammatory activity noted. Pulses are 1+ in dorsalis pedis. Plantar responses are indifferent on the left side and there is an upgoing toes on the right with some spasticity. She has a dense hemiplegia, right side and quite severe weakness in left side. NEUROLOGIC: She is awake, but she has inability to express herself probably from expressive aphasia, may have a component of receptive as well. LABORATORY DATA AND IMAGING DATA: White cell count was 12.4 and now has decreased to 9.3, hemoglobin was 9.8 and now it is 9.4, platelets were 615 and now 544, 86% neutrophils. Sodium 135, creatinine 0.58. Liver profile normal. Albumin 2.6. Urinalysis with 21-50 wbc's. Vancomycin trough 12 to 16. Microbiology with Granulicatella adiacens from the urine culture greater than 100,000 colonies. Blood culture negative thus far. Imaging studies include abdomen and pelvis CT from 10/16/2017 which showed moderate sized pleural effusions and an 8 mm low density lesion in the spleen, ill-defined fluid collection in the pelvis. The patient had surgical debridement of the ulcer by Dr. Joy. The patient had a 5 x 4 x 2 cm sacral decubitus ulcer debrided using scalpel and necrotic subcutaneous tissues were divided. Hemostasis was achieved using cautery. The wound was irrigated and covered with a wound VAC. No comment was made regarding the presence of bone exposure, so we will assume that there was not bone exposure. ASSESSMENT: 1. Severe neurological impairment following left middle cerebral artery distribution cerebrovascular accident with hemorrhagic transformation following tPA administration. 2. Malnutrition with question of her ability to swallow properly. 3. Immobility with decubitus ulcer at presacral region which has failed outpatient management. 4. Abnormal urinalysis with positive urine culture. DISCUSSION: The patient has severe neurological impairment. The issue of malnutrition is of significant importance in view of the requirement of proper nutrition for healing of the wound in the decubitus area. This is most likely had a role in development and lack of improvement and will have to be reversed if there is any hopes for improvement in this problem. It does not appear that there is bone exposure or osteomyelitis, although there is a very thin layer of tissue covering the bone and potentially we could see rapid progression to osteomyelitis going forward and imaging studies might be required, particularly MRI of the area with contrast to define that better. In the meantime, continue antimicrobial therapy. I would recommend switching to Rocephin and vancomycin combination. Discontinue clindamycin, levofloxacin, and once there is proper granulation at the base of the wound, then transition to wound care management only without antimicrobial therapy. It is more likely that the urinary tract findings reflect colonization rather than invasive infection, but due to her neurological impairment, it is impossible to find out exactly. It would be important to verify that she has proper bladder emptying with bladder scanner evaluation in view of her neurological impairment. The drugs that she has been receiving or will receive will treat the colonization by this organism and I do not think we need to worry with that at this point in time. The other concomitant is on the possibility of aspiration pneumonia in view of the continuing attempts to provide nutrition orally. Evidently, there is a question regarding the ability of the to provide care in the home setting for this patient's advanced directives. [facility]
[2018-01-13] MEDS: cefTRIAXone\\ROCEPHIN 1 GM, Syringe 0.4 ML in Sterile Water 9.6 ML SLOW IVP SCH (16:19)
[2018-01-13] MEDS: Famotidine/PF 20 mg/2ml Vial SLOW IVP SCH (16:21)
--- NOTE | 2018-01-13 18:02 | PDOC.PN ---
- Subjective Encounter Start Date: 01/13/18 Encounter Start Time: 08:40 Pt seen for followup re: sacral decub ulcers. Feels better. No vomiting or diarrhea. - Objective MAR Reviewed: Yes Vital Signs & Weight: Vital Signs (12 hours) Temp Pulse Resp BP Pulse Ox 01/13/18 16:44 98.3 F 87 16 142/76 H 99 01/13/18 11:00 97.7 F 88 16 146/83 H 96 01/13/18 07:59 98.2 F 84 16 98 01/13/18 07:29 98.2 F 84 16 144/82 H 97 01/13/18 06:45 98.4 F 83 16 128/77 99 Weight Admit Weight 101 lb 8 oz Weight 101 lb 8 oz I&O: 01/12/18 01/13/18 01/14/18 06:59 06:59 06:59 Intake Total 0 Balance 0 Result Diagrams: 01/13/18 03:42 01/13/18 03:42 Additional Labs: Accuchecks 01/13/18 01/13/18 01/13/18 16:22 11:30 05:26 POC Glucose 102 100 94 01/12/18 20:19 POC Glucose 120 H Phys Exam - Physical Examination malnourished HEENT: PERRLA, moist MMs, sclera anicteric, oral pharynx no lesions Neck: no nodes, no JVD, supple, full ROM Respiratory: no wheezing, no rales, no rhonchi, clear to auscultation bilateral Cardiovascular: RRR, no rub Gastrointestinal: soft, non-tender, no distention, positive bowel sounds Musculoskeletal: pulses present, edema present R hemiplegia Psychiatric: normal affect Dx/Plan (1) Sacral decubitus ulcer Status: Acute Comment: s/p debridement and wound vac. Appreciate ID consult. Continue IV Rocephin and IV vancomycin. (2) UTI (urinary tract infection) Status: Acute Comment: continue IV Rocephin (3) DM type 2 (diabetes mellitus, type 2) Status: Chronic Comment: Reasonably controlled (4) H/O: CVA (cerebrovascular accident) Code(s): Z86.73 - PRSNL HX OF TIA (TIA), AND CEREB INFRC W/O RESID DEFICITS Status: Chronic Comment: stable (5) HLD (hyperlipidemia) Code(s): E78.5 - HYPERLIPIDEMIA, UNSPECIFIED Status: Chronic (6) HTN (hypertension) Code(s): I10 - ESSENTIAL (PRIMARY) HYPERTENSION Status: Chronic Comment: Continue to monitor vital signs and titrate antihypertensives as needed (7) Hypothyroidism Code(s): E03.9 - HYPOTHYROIDISM, UNSPECIFIED Status: Chronic Comment: continue thyroid replacement therapy (8) Moderate protein malnutrition Code(s): E44.0 - MODERATE PROTEIN-CALORIE MALNUTRITION Status: Chronic Comment: follow dietitian recs - Plan * . Review of Systems - Review of Systems Constitutional: negative: fever, chills, sweats, weakness, malaise Respiratory: negative: Cough, Shortness of Breath, Hemoptysis, SOB with Excertion, Pleuritic Pain, Wheezing Cardiovascular: negative: chest pain, palpitations, orthopnea, paroxysmal nocturnal dyspnea, edema, light headedness Gastrointestinal: negative: Nausea, Vomiting, Abdominal Pain, Diarrhea, Constipation, Melena, Hematochezia Genitourinary: negative: Dysuria, Frequency, Incontinence, Hematuria, Retention - Medications/Allergies Allergies/Adverse Reactions: Allergies Allergy/AdvReac Type Severity Reaction Status Date / Time Penicillins Allergy Verified 08/02/15 03:57 valproic acid Allergy SOMNOLENCE Verified 08/05/15 14:36 Medications: Current Medications Acetaminophen (Tylenol) 650 mg PO Q4H PRN PRN Reason: Headache/Fever or Pain Acetaminophen (Tylenol) 650 mg [place] Q4H PRN PRN Reason: Headache/Fever or Pain Hydrocodone Bitart/Acetaminophen ([place] 10/325) 1 tab PO Q4H PRN PRN Reason: Moderate Pain (4-6) Last Admin: 01/13/18 01:42 Dose: 1 tab Hydrocodone Bitart/Acetaminophen ([place] 5/325) 1 tab PO Q4H PRN PRN Reason: Moderate Pain (4-6) Al Hydroxide/Mg Hydroxide (Maalox) 30 ml PO Q6H PRN PRN Reason: Heartburn or Indigestion Amiodarone HCl (Cordarone) 200 mg PO DAILY [facility] Last Admin: 01/13/18 09:15 Dose: 200 mg Anastrozole (Arimidex) 1 mg PO DAILY [facility] Last Admin: 01/13/18 09:15 Dose: 1 mg Aspirin (Aspirin) 325 mg PO DAILY [facility] Last Admin: 01/13/18 09:14 Dose: 325 mg Bisacodyl (Dulcolax) 10 mg [place] Q24H PRN PRN Reason: Constipation Dextrose/Water (Dextrose 50%) 25 gm SLOW IVP PRN PRN PRN Reason: Hypoglycemia Diphenhydramine HCl (Benadryl) 25 mg PO Q6HR PRN PRN Reason: Allergies Docusate Sodium (Colace) 100 mg PO BID [facility] Last Admin: 01/13/18 09:15 Dose: 100 mg Enoxaparin Sodium (Lovenox) 40 mg SC 0900 [facility] Last Admin: 01/13/18 09:14 Dose: 40 mg Famotidine (Pepcid) 20 mg PO BID [facility] Glucagon (Glucagon) 1 mg IM PRN PRN PRN Reason: Hypoglycemia Dextrose/Water (D5w) 1,000 mls @ 0 mls/hr IV .Q0M PRN; As Directed PRN Reason: Hypoglycemia Vancomycin HCl 750 mg/ Sodium (Chloride) 250 mls @ 250 mls/hr IVPB 0100,1300 [facility] Last Admin: 01/13/18 12:03 Dose: 250 mls Ceftriaxone Sodium 1 gm/ (Syringe 0.4 ml/ Sterile Water) 10 mls @ 120 mls/hr SLOW IVP Q24HR [facility] Last Admin: 01/13/18 16:19 Dose: 10 mls Insulin Human Lispro (Humalog) 0 units SC .MILD SLIDING SCALE PRN PRN Reason: Mild Correctional Scale Levetiracetam (Keppra) 500 mg PO HS [facility] Last Admin: 01/12/18 20:13 Dose: 500 mg Levothyroxine Sodium (Synthroid) 175 mcg PO 0600 [facility] Last Admin: 01/13/18 05:48 Dose: 175 mcg Metformin HCl (Glucophage) 500 mg PO QAM-WM [facility] Last Admin: 01/13/18 09:15 Dose: 500 mg Ondansetron HCl (Zofran) 4 mg IVP Q6H PRN PRN Reason: Nausea/Vomiting Pantoprazole Sodium (Protonix) 40 mg PO 2100 [facility] Last Admin: 01/12/18 20:13 Dose: 40 mg Pyridoxine HCl (Vitamin B 6) 50 mg PO DAILY [facility] Sodium Chloride (Flush - Normal Saline) 10 ml IVF Q12HR [facility] Last Admin: 01/13/18 12:04 Dose: 10 ml Sodium Chloride (Flush - Normal Saline) 10 ml IVF PRN PRN PRN Reason: Saline Flush Zolpidem Tartrate (Ambien) 5 mg PO HSPRN PRN PRN Reason: Insomnia
[2018-01-13] MEDS: levETIRAcetam 500 MG TAB PO SCH (21:55)
[2018-01-13] MEDS: Famotidine 20 MG TAB PO SCH (22:00)
[2018-01-14] MEDS: Vancomycin HCl 750 MG in Sodium Chloride 0.9% 250 ML 250 ML IVPB SCH ×2 (00:25→12:40)
[2018-01-14] MEDS: Levothyroxine 175 MCG TAB PO SCH (04:48)
[2018-01-14] MEDS: HYDROcodone/Acetaminophen 10/325 mg Tablet PO PRN ×2 (05:08→17:12)
[2018-01-14] MEDS: Enoxaparin Sodium 40 MG/0.4 ML SYRINGE SC SCH (09:53)
[2018-01-14] MEDS: Anastrozole 1 MG TAB PO SCH (09:54)
[2018-01-14] MEDS: metFORMIN 500 MG TAB PO SCH (09:54)
[2018-01-14] MEDS: Aspirin 325 MG TAB PO SCH (09:54)
[2018-01-14] MEDS: Docusate 100 MG CAP PO SCH ×2 (09:54→20:50)
[2018-01-14] MEDS: pyridOXINE 50 MG (B6) TAB PO SCH (09:54)
[2018-01-14] MEDS: Famotidine 20 MG TAB PO SCH ×2 (09:54→20:51)
[2018-01-14] MEDS: Amiodarone 200 MG TAB PO SCH (09:54)
--- NOTE | 2018-01-14 16:54 | PDOC.PN ---
- Subjective Encounter Start Date: 01/14/18 Encounter Start Time: 09:00 Pt seen for followup re: sacral decub ulcers. Feels better. - Objective MAR Reviewed: Yes Vital Signs & Weight: Vital Signs (12 hours) Temp Pulse Resp BP Pulse Ox 01/14/18 08:00 98.7 F 91 18 96 01/14/18 07:16 98.7 F 91 18 118/66 96 Weight Admit Weight 101 lb 8 oz Weight 101 lb 8 oz I&O: 01/13/18 01/14/18 01/15/18 06:59 06:59 06:59 Intake Total 0 Balance 0 Result Diagrams: 01/13/18 03:42 01/13/18 03:42 Additional Labs: Accuchecks 01/14/18 01/14/18 01/14/18 16:25 11:21 04:55 POC Glucose 99 102 99 01/13/18 01/13/18 22:14 16:22 POC Glucose 116 H 102 Phys Exam - Physical Examination Constitutional: NAD HEENT: moist MMs Neck: supple Respiratory: clear to auscultation bilateral Cardiovascular: RRR Gastrointestinal: soft Musculoskeletal: pulses present R hemiplegia Psychiatric: normal affect Skin: no rash Dx/Plan (1) Sacral decubitus ulcer Status: Acute Comment: s/p debridement and wound vac. Continue IV Rocephin and IV vancomycin. (2) UTI (urinary tract infection) Status: Acute Comment: on IV Rocephin (3) DM type 2 (diabetes mellitus, type 2) Status: Chronic Comment: controlled (4) H/O: CVA (cerebrovascular accident) Code(s): Z86.73 - PRSNL HX OF TIA (TIA), AND CEREB INFRC W/O RESID DEFICITS Status: Chronic Comment: stable (5) HLD (hyperlipidemia) Code(s): E78.5 - HYPERLIPIDEMIA, UNSPECIFIED Status: Chronic (6) HTN (hypertension) Code(s): I10 - ESSENTIAL (PRIMARY) HYPERTENSION Status: Chronic Comment: monitor vital signs and titrate antihypertensives as needed (7) Hypothyroidism Code(s): E03.9 - HYPOTHYROIDISM, UNSPECIFIED Status: Chronic Comment: continue levothyroxine (8) Moderate protein malnutrition Code(s): E44.0 - MODERATE PROTEIN-CALORIE MALNUTRITION Status: Chronic Comment: follow dietitian recs - Plan DVT proph w/lovenox * . Review of Systems - Review of Systems Respiratory: negative: Cough, Dry, Shortness of Breath, Hemoptysis, SOB with Excertion, Pleuritic Pain, Sputum, Wheezing Cardiovascular: negative: chest pain, palpitations, orthopnea, paroxysmal nocturnal dyspnea, edema, light headedness - Medications/Allergies Allergies/Adverse Reactions: Allergies Allergy/AdvReac Type Severity Reaction Status Date / Time Penicillins Allergy Verified 08/02/15 03:57 valproic acid Allergy SOMNOLENCE Verified 08/05/15 14:36 Medications: Current Medications Acetaminophen (Tylenol) 650 mg PO Q4H PRN PRN Reason: Headache/Fever or Pain Acetaminophen (Tylenol) 650 mg [place] Q4H PRN PRN Reason: Headache/Fever or Pain Hydrocodone Bitart/Acetaminophen ([place] 10/325) 1 tab PO Q4H PRN PRN Reason: Moderate Pain (4-6) Last Admin: 01/14/18 05:08 Dose: 1 tab Hydrocodone Bitart/Acetaminophen ([place] 5/325) 1 tab PO Q4H PRN PRN Reason: Moderate Pain (4-6) Al Hydroxide/Mg Hydroxide (Maalox) 30 ml PO Q6H PRN PRN Reason: Heartburn or Indigestion Amiodarone HCl (Cordarone) 200 mg PO DAILY [facility] Last Admin: 01/14/18 09:54 Dose: 200 mg Anastrozole (Arimidex) 1 mg PO DAILY [facility] Last Admin: 01/14/18 09:54 Dose: 1 mg Aspirin (Aspirin) 325 mg PO DAILY [facility] Last Admin: 01/14/18 09:54 Dose: 325 mg Bisacodyl (Dulcolax) 10 mg [place] Q24H PRN PRN Reason: Constipation Dextrose/Water (Dextrose 50%) 25 gm SLOW IVP PRN PRN PRN Reason: Hypoglycemia Diphenhydramine HCl (Benadryl) 25 mg PO Q6HR PRN PRN Reason: Allergies Docusate Sodium (Colace) 100 mg PO BID [facility] Last Admin: 01/14/18 09:54 Dose: 100 mg Enoxaparin Sodium (Lovenox) 40 mg SC 0900 [facility] Last Admin: 01/14/18 09:53 Dose: 40 mg Famotidine (Pepcid) 20 mg PO BID [facility] Last Admin: 01/14/18 09:54 Dose: 20 mg Glucagon (Glucagon) 1 mg IM PRN PRN PRN Reason: Hypoglycemia Dextrose/Water (D5w) 1,000 mls @ 0 mls/hr IV .Q0M PRN; As Directed PRN Reason: Hypoglycemia Vancomycin HCl 750 mg/ Sodium (Chloride) 250 mls @ 250 mls/hr IVPB 0100,1300 [facility] Last Admin: 01/14/18 12:40 Dose: 250 mls Ceftriaxone Sodium 1 gm/ (Syringe 0.4 ml/ Sterile Water) 10 mls @ 120 mls/hr SLOW IVP Q24HR [facility] Last Admin: 01/13/18 16:19 Dose: 10 mls Insulin Human Lispro (Humalog) 0 units SC .MILD SLIDING SCALE PRN PRN Reason: Mild Correctional Scale Levetiracetam (Keppra) 500 mg PO HS [facility] Last Admin: 01/13/18 21:55 Dose: 500 mg Levothyroxine Sodium (Synthroid) 175 mcg PO 0600 [facility] Last Admin: 01/14/18 04:48 Dose: 175 mcg Metformin HCl (Glucophage) 500 mg PO QAM-WM [facility] Last Admin: 01/14/18 09:54 Dose: 500 mg Ondansetron HCl (Zofran) 4 mg IVP Q6H PRN PRN Reason: Nausea/Vomiting Pantoprazole Sodium (Protonix) 40 mg PO 2100 [facility] Last Admin: 01/13/18 21:56 Dose: 40 mg Pyridoxine HCl (Vitamin B 6) 50 mg PO DAILY [facility] Last Admin: 01/14/18 09:54 Dose: 50 mg Sodium Chloride (Flush - Normal Saline) 10 ml IVF Q12HR [facility] Last Admin: 01/14/18 09:53 Dose: 10 ml Sodium Chloride (Flush - Normal Saline) 10 ml IVF PRN PRN PRN Reason: Saline Flush Zolpidem Tartrate (Ambien) 5 mg PO HSPRN PRN PRN Reason: Insomnia
[2018-01-14] MEDS: cefTRIAXone\\ROCEPHIN 1 GM, Syringe 0.4 ML in Sterile Water 9.6 ML SLOW IVP SCH (17:12)
[2018-01-14] MEDS: levETIRAcetam 500 MG TAB PO SCH (20:51)
[2018-01-15] MEDS: Vancomycin HCl 750 MG in Sodium Chloride 0.9% 250 ML 250 ML IVPB SCH ×2 (00:20→13:04)
[2018-01-15] MEDS: Levothyroxine 175 MCG TAB PO SCH (05:53)
[2018-01-15] MEDS: Aspirin 325 MG TAB PO SCH (08:09)
[2018-01-15] MEDS: Famotidine 20 MG TAB PO SCH ×2 (08:09→19:48)
[2018-01-15] MEDS: metFORMIN 500 MG TAB PO SCH (08:09)
[2018-01-15] MEDS: Enoxaparin Sodium 40 MG/0.4 ML SYRINGE SC SCH (08:09)
[2018-01-15] MEDS: Amiodarone 200 MG TAB PO SCH (08:09)
[2018-01-15] MEDS: pyridOXINE 50 MG (B6) TAB PO SCH (08:09)
[2018-01-15] MEDS: Docusate 100 MG CAP PO SCH ×2 (08:09→19:48)
[2018-01-15] MEDS: Anastrozole 1 MG TAB PO SCH (08:12)
--- NOTE | 2018-01-15 11:51 | PDOC.PN ---
- Subjective Encounter Start Date: 01/15/18 Encounter Start Time: 08:50 -: old records requested/rev Patient seen and examined. No new complaints. No overnight events - Objective MAR Reviewed: Yes Vital Signs & Weight: Vital Signs (12 hours) Temp Pulse Resp BP Pulse Ox 01/15/18 08:00 97.5 F L 87 18 97 01/15/18 07:14 97.5 F L 87 18 124/75 97 Weight Admit Weight 101 lb 8 oz Weight 101 lb 8 oz I&O: 01/14/18 01/15/18 01/16/18 06:59 06:59 06:59 Intake Total 325 Balance 325 Result Diagrams: 01/13/18 03:42 01/13/18 03:42 Additional Labs: Accuchecks 01/15/18 01/14/18 01/14/18 05:06 20:17 16:25 POC Glucose 99 105 99 01/14/18 11:21 POC Glucose 102 Phys Exam - Physical Examination Constitutional: NAD malnourished HEENT: PERRLA, moist MMs, sclera anicteric Neck: no JVD, supple Respiratory: no wheezing, no rales, no rhonchi Cardiovascular: RRR, no significant murmur, no rub Gastrointestinal: soft, non-tender, no distention, positive bowel sounds Musculoskeletal: no edema, pulses present wound vac in place at sacrum Neurological: moves all 4 limbs Lymphatic: no nodes Psychiatric: normal affect Skin: no rash, normal turgor Dx/Plan (1) Sacral decubitus ulcer Status: Acute Qualifiers: Pressure ulcer stage: stage 4 Qualified Code(s): L89.154 - Pressure ulcer of sacral region, stage 4 Comment: s/p debridement and wound vac. Continue IV Rocephin and IV vancomycin. (2) UTI (urinary tract infection) Status: Acute Comment: on IV Rocephin (3) Aphasia Code(s): R47.01 - APHASIA Status: Chronic (4) DM type 2 (diabetes mellitus, type 2) Status: Chronic Comment: controlled (5) H/O: CVA (cerebrovascular accident) Code(s): Z86.73 - PRSNL HX OF TIA (TIA), AND CEREB INFRC W/O RESID DEFICITS Status: Chronic Comment: stable (6) HLD (hyperlipidemia) Code(s): E78.5 - HYPERLIPIDEMIA, UNSPECIFIED Status: Chronic (7) HTN (hypertension) Code(s): I10 - ESSENTIAL (PRIMARY) HYPERTENSION Status: Chronic Comment: monitor vital signs and titrate antihypertensives as needed (8) Hypothyroidism Code(s): E03.9 - HYPOTHYROIDISM, UNSPECIFIED Status: Chronic Comment: continue levothyroxine (9) Moderate protein malnutrition Code(s): E44.0 - MODERATE PROTEIN-CALORIE MALNUTRITION Status: Chronic Comment: follow dietitian recs - Plan cont current plan of care, continue antibiotics, social and human services assistant * continue wound care with wound vac * nutritional support * continue iv antibiotics * tried to reach son, but not able to talk on phone * medication reviewed as below * symptomatic treatment * will need placement * code status so far full code. Review of Systems - Review of Systems Other: not reliable due to her level of cognitive status - Medications/Allergies Allergies/Adverse Reactions: Allergies Allergy/AdvReac Type Severity Reaction Status Date / Time Penicillins Allergy Verified 08/02/15 03:57 valproic acid Allergy SOMNOLENCE Verified 08/05/15 14:36 Medications: Current Medications Acetaminophen (Tylenol) 650 mg PO Q4H PRN PRN Reason: Headache/Fever or Pain Acetaminophen (Tylenol) 650 mg [place] Q4H PRN PRN Reason: Headache/Fever or Pain Hydrocodone Bitart/Acetaminophen ([place] 10/325) 1 tab PO Q4H PRN PRN Reason: Moderate Pain (4-6) Last Admin: 01/14/18 17:12 Dose: 1 tab Hydrocodone Bitart/Acetaminophen ([place] 5/325) 1 tab PO Q4H PRN PRN Reason: Moderate Pain (4-6) Al Hydroxide/Mg Hydroxide (Maalox) 30 ml PO Q6H PRN PRN Reason: Heartburn or Indigestion Amiodarone HCl (Cordarone) 200 mg PO DAILY [facility] Last Admin: 01/15/18 08:09 Dose: 200 mg Anastrozole (Arimidex) 1 mg PO DAILY [facility] Last Admin: 01/15/18 08:12 Dose: 1 mg Aspirin (Aspirin) 325 mg PO DAILY [facility] Last Admin: 01/15/18 08:09 Dose: 325 mg Bisacodyl (Dulcolax) 10 mg [place] Q24H PRN PRN Reason: Constipation Dextrose/Water (Dextrose 50%) 25 gm SLOW IVP PRN PRN PRN Reason: Hypoglycemia Diphenhydramine HCl (Benadryl) 25 mg PO Q6HR PRN PRN Reason: Allergies Docusate Sodium (Colace) 100 mg PO BID [facility] Last Admin: 01/15/18 08:09 Dose: 100 mg Enoxaparin Sodium (Lovenox) 40 mg SC 0900 [facility] Last Admin: 01/15/18 08:09 Dose: 40 mg Famotidine (Pepcid) 20 mg PO BID [facility] Last Admin: 01/15/18 08:09 Dose: 20 mg Glucagon (Glucagon) 1 mg IM PRN PRN PRN Reason: Hypoglycemia Dextrose/Water (D5w) 1,000 mls @ 0 mls/hr IV .Q0M PRN; As Directed PRN Reason: Hypoglycemia Vancomycin HCl 750 mg/ Sodium (Chloride) 250 mls @ 250 mls/hr IVPB 0100,1300 [facility] Last Admin: 01/15/18 00:20 Dose: 250 mls Ceftriaxone Sodium 1 gm/ (Syringe 0.4 ml/ Sterile Water) 10 mls @ 120 mls/hr SLOW IVP Q24HR [facility] Last Admin: 01/14/18 17:12 Dose: 10 mls Insulin Human Lispro (Humalog) 0 units SC .MILD SLIDING SCALE PRN PRN Reason: Mild Correctional Scale Levetiracetam (Keppra) 500 mg PO HS [facility] Last Admin: 01/14/18 20:51 Dose: 500 mg Levothyroxine Sodium (Synthroid) 175 mcg PO 0600 [facility] Last Admin: 01/15/18 05:53 Dose: 175 mcg Metformin HCl (Glucophage) 500 mg PO QAM-WM [facility] Last Admin: 01/15/18 08:09 Dose: 500 mg Ondansetron HCl (Zofran) 4 mg IVP Q6H PRN PRN Reason: Nausea/Vomiting Pantoprazole Sodium (Protonix) 40 mg PO 2100 [facility] Last Admin: 01/14/18 20:51 Dose: 40 mg Pyridoxine HCl (Vitamin B 6) 50 mg PO DAILY [facility] Last Admin: 01/15/18 08:09 Dose: 50 mg Sodium Chloride (Flush - Normal Saline) 10 ml IVF Q12HR [facility] Last Admin: 01/15/18 08:09 Dose: 10 ml Sodium Chloride (Flush - Normal Saline) 10 ml IVF PRN PRN PRN Reason: Saline Flush Zolpidem Tartrate (Ambien) 5 mg PO HSPRN PRN PRN Reason: Insomnia
[2018-01-15 12:17] LABS: Vancomycin, Trough 15.9 ug/mL
[2018-01-15] MEDS: cefTRIAXone\\ROCEPHIN 1 GM, Syringe 0.4 ML in Sterile Water 9.6 ML SLOW IVP SCH (16:58)
[2018-01-15] MEDS: levETIRAcetam 500 MG TAB PO SCH (19:48)
[2018-01-16] MEDS: Vancomycin HCl 750 MG in Sodium Chloride 0.9% 250 ML 250 ML IVPB SCH ×2 (01:41→13:19)
[2018-01-16] MEDS: Levothyroxine 175 MCG TAB PO SCH (05:42)
[2018-01-16] MEDS: Anastrozole 1 MG TAB PO SCH (07:55)
[2018-01-16] MEDS: Enoxaparin Sodium 40 MG/0.4 ML SYRINGE SC SCH (07:56)
[2018-01-16] MEDS: Aspirin 325 MG TAB PO SCH (07:56)
[2018-01-16] MEDS: Famotidine 20 MG TAB PO SCH ×2 (07:56→20:27)
[2018-01-16] MEDS: pyridOXINE 50 MG (B6) TAB PO SCH (07:56)
[2018-01-16] MEDS: Amiodarone 200 MG TAB PO SCH (07:57)
[2018-01-16] MEDS: metFORMIN 500 MG TAB PO SCH (07:57)
[2018-01-16] MEDS: Docusate 100 MG CAP PO SCH ×2 (09:12→20:27)
[2018-01-16] MEDS: HYDROcodone/Acetaminophen 10/325 mg Tablet PO PRN ×2 (10:08→18:21)
--- NOTE | 2018-01-16 10:57 | PDOC.PN ---
- Subjective Encounter Start Date: 01/16/18 Encounter Start Time: 09:10 Patient seen and examined. No new complaints. No overnight events - Objective MAR Reviewed: Yes Vital Signs & Weight: Vital Signs (12 hours) Temp Pulse Resp BP Pulse Ox 01/16/18 08:00 98.8 F 85 16 01/16/18 07:13 98.8 F 85 16 125/73 97 Weight Admit Weight 101 lb 8 oz Weight 101 lb 8 oz I&O: 01/15/18 01/16/18 01/17/18 06:59 06:59 06:59 Intake Total 325 460 Balance 325 460 Result Diagrams: 01/13/18 03:42 01/13/18 03:42 Additional Labs: Accuchecks 01/16/18 01/15/18 01/15/18 06:18 19:57 16:58 POC Glucose 90 110 109 01/15/18 11:42 POC Glucose 112 H Phys Exam - Physical Examination Constitutional: NAD HEENT: PERRLA, moist MMs, sclera anicteric Neck: no JVD, supple Respiratory: no wheezing, no rales, no rhonchi Cardiovascular: RRR, no significant murmur, no rub Gastrointestinal: soft, non-tender, no distention, positive bowel sounds Musculoskeletal: no edema, pulses present wound vac in place Neurological: non-focal, normal sensation, moves all 4 limbs Lymphatic: no nodes Psychiatric: normal affect, A&O x 3 Skin: no rash, normal turgor Dx/Plan (1) Sacral decubitus ulcer Status: Acute Qualifiers: Pressure ulcer stage: stage 4 Qualified Code(s): L89.154 - Pressure ulcer of sacral region, stage 4 Comment: s/p debridement and wound vac. Continue IV Rocephin and IV vancomycin. (2) UTI (urinary tract infection) Status: Acute Comment: on IV Rocephin (3) Aphasia Code(s): R47.01 - APHASIA Status: Chronic (4) DM type 2 (diabetes mellitus, type 2) Status: Chronic Comment: controlled (5) H/O: CVA (cerebrovascular accident) Code(s): Z86.73 - PRSNL HX OF TIA (TIA), AND CEREB INFRC W/O RESID DEFICITS Status: Chronic Comment: stable (6) HLD (hyperlipidemia) Code(s): E78.5 - HYPERLIPIDEMIA, UNSPECIFIED Status: Chronic (7) HTN (hypertension) Code(s): I10 - ESSENTIAL (PRIMARY) HYPERTENSION Status: Chronic Comment: monitor vital signs and titrate antihypertensives as needed (8) Hypothyroidism Code(s): E03.9 - HYPOTHYROIDISM, UNSPECIFIED Status: Chronic Comment: continue levothyroxine (9) Moderate protein malnutrition Code(s): E44.0 - MODERATE PROTEIN-CALORIE MALNUTRITION Status: Chronic Comment: follow dietitian recs - Plan cont current plan of care, continue antibiotics, social media marketing specialist * continue wound care * wound vac. * better to discharge to [place] * air mattress * continue empiric antibiotics * medication reviewed as below * symptomatic treatment Review of Systems - Review of Systems Other: not possible and not reliable due to her aphasia - Medications/Allergies Allergies/Adverse Reactions: Allergies Allergy/AdvReac Type Severity Reaction Status Date / Time Penicillins Allergy Verified 08/02/15 03:57 valproic acid Allergy SOMNOLENCE Verified 08/05/15 14:36 Medications: Current Medications Acetaminophen (Tylenol) 650 mg PO Q4H PRN PRN Reason: Headache/Fever or Pain Acetaminophen (Tylenol) 650 mg [place] Q4H PRN PRN Reason: Headache/Fever or Pain Hydrocodone Bitart/Acetaminophen ([place] 10/325) 1 tab PO Q4H PRN PRN Reason: Moderate Pain (4-6) Last Admin: 01/16/18 10:08 Dose: 1 tab Hydrocodone Bitart/Acetaminophen ([place] 5/325) 1 tab PO Q4H PRN PRN Reason: Moderate Pain (4-6) Al Hydroxide/Mg Hydroxide (Maalox) 30 ml PO Q6H PRN PRN Reason: Heartburn or Indigestion Amiodarone HCl (Cordarone) 200 mg PO DAILY [facility] Last Admin: 01/16/18 07:57 Dose: 200 mg Anastrozole (Arimidex) 1 mg PO DAILY [facility] Last Admin: 01/16/18 07:55 Dose: 1 mg Aspirin (Aspirin) 325 mg PO DAILY [facility] Last Admin: 01/16/18 07:56 Dose: 325 mg Bisacodyl (Dulcolax) 10 mg [place] Q24H PRN PRN Reason: Constipation Dextrose/Water (Dextrose 50%) 25 gm SLOW IVP PRN PRN PRN Reason: Hypoglycemia Diphenhydramine HCl (Benadryl) 25 mg PO Q6HR PRN PRN Reason: Allergies Docusate Sodium (Colace) 100 mg PO BID [facility] Last Admin: 01/16/18 09:12 Dose: 100 mg Enoxaparin Sodium (Lovenox) 40 mg SC 0900 [facility] Last Admin: 01/16/18 07:56 Dose: 40 mg Famotidine (Pepcid) 20 mg PO BID [facility] Last Admin: 01/16/18 07:56 Dose: 20 mg Glucagon (Glucagon) 1 mg IM PRN PRN PRN Reason: Hypoglycemia Dextrose/Water (D5w) 1,000 mls @ 0 mls/hr IV .Q0M PRN; As Directed PRN Reason: Hypoglycemia Vancomycin HCl 750 mg/ Sodium (Chloride) 250 mls @ 250 mls/hr IVPB 0100,1300 [facility] Last Admin: 01/16/18 01:41 Dose: 250 mls Ceftriaxone Sodium 1 gm/ (Syringe 0.4 ml/ Sterile Water) 10 mls @ 120 mls/hr SLOW IVP Q24HR [facility] Last Admin: 01/15/18 16:58 Dose: 10 mls Insulin Human Lispro (Humalog) 0 units SC .MILD SLIDING SCALE PRN PRN Reason: Mild Correctional Scale Levetiracetam (Keppra) 500 mg PO HS [facility] Last Admin: 01/15/18 19:48 Dose: 500 mg Levothyroxine Sodium (Synthroid) 175 mcg PO 0600 [facility] Last Admin: 01/16/18 05:42 Dose: 175 mcg Metformin HCl (Glucophage) 500 mg PO QAM-WM [facility] Last Admin: 01/16/18 07:57 Dose: 500 mg Ondansetron HCl (Zofran) 4 mg IVP Q6H PRN PRN Reason: Nausea/Vomiting Pantoprazole Sodium (Protonix) 40 mg PO 2100 [facility] Last Admin: 01/15/18 19:48 Dose: 40 mg Pyridoxine HCl (Vitamin B 6) 50 mg PO DAILY [facility] Last Admin: 01/16/18 07:56 Dose: 50 mg Sodium Chloride (Flush - Normal Saline) 10 ml IVF Q12HR [facility] Last Admin: 01/16/18 09:12 Dose: 10 ml Sodium Chloride (Flush - Normal Saline) 10 ml IVF PRN PRN PRN Reason: Saline Flush Zolpidem Tartrate (Ambien) 5 mg PO HSPRN PRN PRN Reason: Insomnia
[2018-01-16] MEDS: cefTRIAXone\\ROCEPHIN 1 GM, Syringe 0.4 ML in Sterile Water 9.6 ML SLOW IVP SCH (18:12)
[2018-01-16] MEDS: levETIRAcetam 500 MG TAB PO SCH (20:27)
[2018-01-17] MEDS: Vancomycin HCl 750 MG in Sodium Chloride 0.9% 250 ML 250 ML IVPB SCH ×2 (01:19→12:21)
[2018-01-17] MEDS: HYDROcodone/Acetaminophen 10/325 mg Tablet PO PRN ×4 (01:50→21:04)
[2018-01-17] MEDS: Levothyroxine 175 MCG TAB PO SCH (06:13)
--- NOTE | 2018-01-17 09:31 | PRG ---
DATE OF SERVICE: 01/16/2018 SUBJECTIVE: The patient is awake. Family members were in the room with her. Does not appear in dis tress. OBJECTIVE: HEENT: Ocular movements conjugate. Pale conjunctivae. LUNGS: Symmetric air entry. HEART: S1, S2 regular rate. ABDOMEN: Not distended. The wound has much improved appearance with a red tissue at the base, cover ing about 85% of the wound. LABORATORY DATA: White cell count 9.3, hemoglobin 9.4, platelets 544, and creatinine 0.57. 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 The decubitus ulcer does not seem to have led to bone exposure yet. The base of the wound has impr carlos markedly with few days of proper wound care management and antimicrobial therapy. I believe michelle t upon discharge we will be able to discontinue antimicrobials and continue wound care alone, maybe w ith negative-pressure dressing. Disposition will likely involve transfer back to the home setting. The main concern is with her nutritional status.
[2018-01-17] MEDS: Aspirin 325 MG TAB PO SCH (09:38)
[2018-01-17] MEDS: Famotidine 20 MG TAB PO SCH ×2 (09:38→21:03)
[2018-01-17] MEDS: Amiodarone 200 MG TAB PO SCH (09:39)
[2018-01-17] MEDS: pyridOXINE 50 MG (B6) TAB PO SCH (09:39)
[2018-01-17] MEDS: Enoxaparin Sodium 40 MG/0.4 ML SYRINGE SC SCH (09:39)
[2018-01-17] MEDS: Anastrozole 1 MG TAB PO SCH (09:39)
[2018-01-17] MEDS: metFORMIN 500 MG TAB PO SCH (09:39)
[2018-01-17] MEDS: Docusate 100 MG CAP PO SCH ×2 (09:39→21:03)
--- NOTE | 2018-01-17 12:39 | PDOC.PN ---
- Subjective Encounter Start Date: 01/17/18 Encounter Start Time: 08:45 Patient seen and examined. No new complaints. No overnight events - Objective MAR Reviewed: Yes Vital Signs & Weight: Vital Signs (12 hours) Temp Pulse Resp BP Pulse Ox 01/17/18 08:00 97.6 F 78 12 160/74 H 97 Weight Admit Weight 101 lb 8 oz Weight 101 lb 8 oz I&O: 01/16/18 01/17/18 01/18/18 06:59 06:59 06:59 Intake Total 460 Balance 460 Result Diagrams: 01/13/18 03:42 01/13/18 03:42 Additional Labs: Accuchecks 01/17/18 01/16/18 01/16/18 10:59 20:58 16:13 POC Glucose 85 96 121 H Phys Exam - Physical Examination Constitutional: NAD HEENT: PERRLA, moist MMs, sclera anicteric Neck: no JVD, supple Respiratory: no wheezing, no rales, no rhonchi Cardiovascular: RRR, no significant murmur, no rub Gastrointestinal: soft, non-tender, no distention, positive bowel sounds Musculoskeletal: no edema, pulses present wound vac in place at sacral area aphasic Lymphatic: no nodes Psychiatric: normal affect Skin: no rash, normal turgor Dx/Plan (1) Sacral decubitus ulcer Status: Acute Qualifiers: Pressure ulcer stage: stage 4 Qualified Code(s): L89.154 - Pressure ulcer of sacral region, stage 4 Comment: s/p debridement and wound vac. Continue IV Rocephin and IV vancomycin. (2) UTI (urinary tract infection) Status: Acute Comment: on IV Rocephin (3) Aphasia Code(s): R47.01 - APHASIA Status: Chronic (4) DM type 2 (diabetes mellitus, type 2) Status: Chronic Comment: controlled (5) H/O: CVA (cerebrovascular accident) Code(s): Z86.73 - PRSNL HX OF TIA (TIA), AND CEREB INFRC W/O RESID DEFICITS Status: Chronic Comment: stable (6) HLD (hyperlipidemia) Code(s): E78.5 - HYPERLIPIDEMIA, UNSPECIFIED Status: Chronic (7) HTN (hypertension) Code(s): I10 - ESSENTIAL (PRIMARY) HYPERTENSION Status: Chronic Comment: monitor vital signs and titrate antihypertensives as needed (8) Hypothyroidism Code(s): E03.9 - HYPOTHYROIDISM, UNSPECIFIED Status: Chronic Comment: continue levothyroxine (9) Moderate protein malnutrition Code(s): E44.0 - MODERATE PROTEIN-CALORIE MALNUTRITION Status: Chronic Comment: follow dietitian recs - Plan cont current plan of care, continue antibiotics, healthcare social worker * she needs better wound care with wound vac, air mattress and antibiotics along with good nutrition * she will benefit from SNU placement to avoid readmission * medication reviewed as below * symptomatic treatment * continue vancomycin and rocephin * wound care * field nurse case manager is working on placement. Review of Systems - Review of Systems Other: not reliable due to aphasia and level of cognitive status - Medications/Allergies Allergies/Adverse Reactions: Allergies Allergy/AdvReac Type Severity Reaction Status Date / Time Penicillins Allergy Verified 08/02/15 03:57 valproic acid Allergy SOMNOLENCE Verified 08/05/15 14:36 Medications: Current Medications Acetaminophen (Tylenol) 650 mg PO Q4H PRN PRN Reason: Headache/Fever or Pain Acetaminophen (Tylenol) 650 mg [place] Q4H PRN PRN Reason: Headache/Fever or Pain Hydrocodone Bitart/Acetaminophen ([place] 10/325) 1 tab PO Q4H PRN PRN Reason: Moderate Pain (4-6) Last Admin: 01/17/18 09:37 Dose: 1 tab Hydrocodone Bitart/Acetaminophen ([place] 5/325) 1 tab PO Q4H PRN PRN Reason: Moderate Pain (4-6) Al Hydroxide/Mg Hydroxide (Maalox) 30 ml PO Q6H PRN PRN Reason: Heartburn or Indigestion Amiodarone HCl (Cordarone) 200 mg PO DAILY [facility] Last Admin: 01/17/18 09:39 Dose: 200 mg Anastrozole (Arimidex) 1 mg PO DAILY [facility] Last Admin: 01/17/18 09:39 Dose: 1 mg Aspirin (Aspirin) 325 mg PO DAILY [facility] Last Admin: 01/17/18 09:38 Dose: 325 mg Bisacodyl (Dulcolax) 10 mg [place] Q24H PRN PRN Reason: Constipation Dextrose/Water (Dextrose 50%) 25 gm SLOW IVP PRN PRN PRN Reason: Hypoglycemia Diphenhydramine HCl (Benadryl) 25 mg PO Q6HR PRN PRN Reason: Allergies Docusate Sodium (Colace) 100 mg PO BID [facility] Last Admin: 01/17/18 09:39 Dose: 100 mg Enoxaparin Sodium (Lovenox) 40 mg SC 0900 [facility] Last Admin: 01/17/18 09:39 Dose: 40 mg Famotidine (Pepcid) 20 mg PO BID [facility] Last Admin: 01/17/18 09:38 Dose: 20 mg Glucagon (Glucagon) 1 mg IM PRN PRN PRN Reason: Hypoglycemia Dextrose/Water (D5w) 1,000 mls @ 0 mls/hr IV .Q0M PRN; As Directed PRN Reason: Hypoglycemia Vancomycin HCl 750 mg/ Sodium (Chloride) 250 mls @ 250 mls/hr IVPB 0100,1300 [facility] Last Admin: 01/17/18 12:21 Dose: 250 mls Ceftriaxone Sodium 1 gm/ (Syringe 0.4 ml/ Sterile Water) 10 mls @ 120 mls/hr SLOW IVP Q24HR [facility] Last Admin: 01/16/18 18:12 Dose: 10 mls Insulin Human Lispro (Humalog) 0 units SC .MILD SLIDING SCALE PRN PRN Reason: Mild Correctional Scale Levetiracetam (Keppra) 500 mg PO HS [facility] Last Admin: 01/16/18 20:27 Dose: 500 mg Levothyroxine Sodium (Synthroid) 175 mcg PO 0600 [facility] Last Admin: 01/17/18 06:13 Dose: 175 mcg Metformin HCl (Glucophage) 500 mg PO QAM-WM [facility] Last Admin: 01/17/18 09:39 Dose: 500 mg Ondansetron HCl (Zofran) 4 mg IVP Q6H PRN PRN Reason: Nausea/Vomiting Pantoprazole Sodium (Protonix) 40 mg PO 2100 [facility] Last Admin: 01/16/18 20:27 Dose: 40 mg Pyridoxine HCl (Vitamin B 6) 50 mg PO DAILY [facility] Last Admin: 01/17/18 09:39 Dose: 50 mg Sodium Chloride (Flush - Normal Saline) 10 ml IVF Q12HR [facility] Last Admin: 01/17/18 09:40 Dose: Not Given Sodium Chloride (Flush - Normal Saline) 10 ml IVF PRN PRN PRN Reason: Saline Flush Zolpidem Tartrate (Ambien) 5 mg PO HSPRN PRN PRN Reason: Insomnia
[2018-01-17] MEDS: cefTRIAXone\\ROCEPHIN 1 GM, Syringe 0.4 ML in Sterile Water 9.6 ML SLOW IVP SCH (16:27)
[2018-01-17] MEDS: levETIRAcetam 500 MG TAB PO SCH (21:07)
[2018-01-18] MEDS: Vancomycin HCl 750 MG in Sodium Chloride 0.9% 250 ML 250 ML IVPB SCH ×2 (02:08→13:27)
[2018-01-18] MEDS: Levothyroxine 175 MCG TAB PO SCH (06:10)
[2018-01-18] MEDS: Amiodarone 200 MG TAB PO SCH (09:00)
[2018-01-18] MEDS: Aspirin 325 MG TAB PO SCH (09:00)
[2018-01-18] MEDS: metFORMIN 500 MG TAB PO SCH (09:00)
[2018-01-18] MEDS: Docusate 100 MG CAP PO SCH ×2 (09:00→21:17)
[2018-01-18] MEDS: Enoxaparin Sodium 40 MG/0.4 ML SYRINGE SC SCH (09:00)
[2018-01-18] MEDS: Famotidine 20 MG TAB PO SCH ×2 (09:00→21:17)
[2018-01-18] MEDS: pyridOXINE 50 MG (B6) TAB PO SCH (09:00)
[2018-01-18] MEDS: Anastrozole 1 MG TAB PO SCH (09:03)
--- NOTE | 2018-01-18 10:21 | PDOC.PN ---
- Subjective Encounter Start Date: 01/18/18 Encounter Start Time: 08:20 pt has vomiting today after breakfast, Patient seen and examined. No overnight events - Objective MAR Reviewed: Yes Vital Signs & Weight: Vital Signs (12 hours) Temp Pulse Resp BP Pulse Ox 01/18/18 08:00 97.6 F 89 16 96 01/18/18 07:19 97.6 F 89 16 144/73 H 96 01/18/18 04:00 98.6 F 87 16 144/74 H 96 01/18/18 00:00 97.8 F 93 14 147/78 H 96 Weight Admit Weight 101 lb 8 oz Weight 101 lb 8 oz I&O: 01/17/18 01/18/18 01/19/18 06:59 06:59 06:59 Intake Total 550 Balance 550 Result Diagrams: 01/13/18 03:42 01/13/18 03:42 Additional Labs: Accuchecks 01/18/18 01/17/18 01/17/18 05:05 19:35 16:33 POC Glucose 90 119 H 91 01/17/18 10:59 POC Glucose 85 Phys Exam - Physical Examination Constitutional: NAD HEENT: PERRLA, moist MMs, sclera anicteric Neck: no JVD, supple Respiratory: no wheezing, no rales, no rhonchi Cardiovascular: RRR, no significant murmur, no rub Gastrointestinal: soft, non-tender, no distention, positive bowel sounds Musculoskeletal: no edema, pulses present wound vac in place Lymphatic: no nodes Psychiatric: normal affect Skin: no rash, normal turgor Dx/Plan (1) Sacral decubitus ulcer Status: Acute Qualifiers: Pressure ulcer stage: stage 4 Qualified Code(s): L89.154 - Pressure ulcer of sacral region, stage 4 Comment: s/p debridement and wound vac. Continue IV Rocephin and IV vancomycin. (2) UTI (urinary tract infection) Status: Acute Comment: on IV Rocephin (3) Aphasia Code(s): R47.01 - APHASIA Status: Chronic (4) DM type 2 (diabetes mellitus, type 2) Status: Chronic Comment: controlled (5) H/O: CVA (cerebrovascular accident) Code(s): Z86.73 - PRSNL HX OF TIA (TIA), AND CEREB INFRC W/O RESID DEFICITS Status: Chronic Comment: stable (6) HLD (hyperlipidemia) Code(s): E78.5 - HYPERLIPIDEMIA, UNSPECIFIED Status: Chronic (7) HTN (hypertension) Code(s): I10 - ESSENTIAL (PRIMARY) HYPERTENSION Status: Chronic Comment: monitor vital signs and titrate antihypertensives as needed (8) Hypothyroidism Code(s): E03.9 - HYPOTHYROIDISM, UNSPECIFIED Status: Chronic Comment: continue levothyroxine (9) Moderate protein malnutrition Code(s): E44.0 - MODERATE PROTEIN-CALORIE MALNUTRITION Status: Chronic Comment: follow dietitian recs - Plan cont current plan of care, continue antibiotics, social psychologist * pt's does not consent for SNU placement which she needs it for better wound care * he also does not want to go her with wound vac which is necessary * continue iv antibiotics as ordered while in hospital * nutrition is main issue * case advocate for discharge planning * on discharge oral antibiotics. Review of Systems - Review of Systems Other: unable to review due to her level of cognitive status and aphasia - Medications/Allergies Allergies/Adverse Reactions: Allergies Allergy/AdvReac Type Severity Reaction Status Date / Time Penicillins Allergy Verified 08/02/15 03:57 valproic acid Allergy SOMNOLENCE Verified 08/05/15 14:36 Medications: Current Medications Acetaminophen (Tylenol) 650 mg PO Q4H PRN PRN Reason: Headache/Fever or Pain Acetaminophen (Tylenol) 650 mg [place] Q4H PRN PRN Reason: Headache/Fever or Pain Hydrocodone Bitart/Acetaminophen ([place] 10/325) 1 tab PO Q4H PRN PRN Reason: Moderate Pain (4-6) Last Admin: 01/17/18 21:04 Dose: 1 tab Hydrocodone Bitart/Acetaminophen ([place] 5/325) 1 tab PO Q4H PRN PRN Reason: Moderate Pain (4-6) Al Hydroxide/Mg Hydroxide (Maalox) 30 ml PO Q6H PRN PRN Reason: Heartburn or Indigestion Amiodarone HCl (Cordarone) 200 mg PO DAILY [facility] Last Admin: 01/18/18 09:00 Dose: 200 mg Anastrozole (Arimidex) 1 mg PO DAILY [facility] Last Admin: 01/18/18 09:03 Dose: 1 mg Aspirin (Aspirin) 325 mg PO DAILY [facility] Last Admin: 01/18/18 09:00 Dose: 325 mg Bisacodyl (Dulcolax) 10 mg [place] Q24H PRN PRN Reason: Constipation Dextrose/Water (Dextrose 50%) 25 gm SLOW IVP PRN PRN PRN Reason: Hypoglycemia Diphenhydramine HCl (Benadryl) 25 mg PO Q6HR PRN PRN Reason: Allergies Docusate Sodium (Colace) 100 mg PO BID [facility] Last Admin: 01/18/18 09:00 Dose: 100 mg Enoxaparin Sodium (Lovenox) 40 mg SC 0900 [facility] Last Admin: 01/18/18 09:00 Dose: 40 mg Famotidine (Pepcid) 20 mg PO BID [facility] Last Admin: 01/18/18 09:00 Dose: 20 mg Glucagon (Glucagon) 1 mg IM PRN PRN PRN Reason: Hypoglycemia Dextrose/Water (D5w) 1,000 mls @ 0 mls/hr IV .Q0M PRN; As Directed PRN Reason: Hypoglycemia Vancomycin HCl 750 mg/ Sodium (Chloride) 250 mls @ 250 mls/hr IVPB 0100,1300 [facility] Last Admin: 01/18/18 02:08 Dose: 250 mls Ceftriaxone Sodium 1 gm/ (Syringe 0.4 ml/ Sterile Water) 10 mls @ 120 mls/hr SLOW IVP Q24HR [facility] Last Admin: 01/17/18 16:27 Dose: 10 mls Insulin Human Lispro (Humalog) 0 units SC .MILD SLIDING SCALE PRN PRN Reason: Mild Correctional Scale Levetiracetam (Keppra) 500 mg PO HS [facility] Last Admin: 01/17/18 21:07 Dose: 500 mg Levothyroxine Sodium (Synthroid) 175 mcg PO 0600 [facility] Last Admin: 01/18/18 06:10 Dose: 175 mcg Metformin HCl (Glucophage) 500 mg PO QAM-WM [facility] Last Admin: 01/18/18 09:00 Dose: 500 mg Ondansetron HCl (Zofran) 4 mg IVP Q6H PRN PRN Reason: Nausea/Vomiting Last Admin: 01/18/18 09:03 Dose: 4 mg Pantoprazole Sodium (Protonix) 40 mg PO 2100 [facility] Last Admin: 01/17/18 21:03 Dose: 40 mg Pyridoxine HCl (Vitamin B 6) 50 mg PO DAILY [facility] Last Admin: 01/18/18 09:00 Dose: 50 mg Sodium Chloride (Flush - Normal Saline) 10 ml IVF Q12HR [facility] Last Admin: 01/18/18 09:01 Dose: Not Given Sodium Chloride (Flush - Normal Saline) 10 ml IVF PRN PRN PRN Reason: Saline Flush Zolpidem Tartrate (Ambien) 5 mg PO HSPRN PRN PRN Reason: Insomnia
[2018-01-18] MEDS: HYDROcodone/Acetaminophen 10/325 mg Tablet PO PRN ×3 (10:49→22:57)
[2018-01-18 13:10] LABS: Vancomycin, Trough 13.9 ug/mL
[2018-01-18] MEDS: cefTRIAXone\\ROCEPHIN 1 GM, Syringe 0.4 ML in Sterile Water 9.6 ML SLOW IVP SCH (16:09)
[2018-01-18] MEDS: levETIRAcetam 500 MG TAB PO SCH (22:21)
[2018-01-18] MEDS ORDERED: levETIRAcetam 500 mg/5 ml Oral Solution PO SCH (23:15)
[2018-01-19] MEDS: Vancomycin HCl 1 GM in Premix Bag 1 BAG IVPB SCH ×2 (01:04→14:09)
[2018-01-19] MEDS: Levothyroxine 175 MCG TAB PO SCH (05:44)
[2018-01-19] MEDS: Docusate 100 MG CAP PO SCH ×2 (07:53→20:35)
[2018-01-19] MEDS: Amiodarone 200 MG TAB PO SCH (07:54)
[2018-01-19] MEDS: pyridOXINE 50 MG (B6) TAB PO SCH (07:54)
[2018-01-19] MEDS: metFORMIN 500 MG TAB PO SCH (07:54)
[2018-01-19] MEDS: Aspirin 325 MG TAB PO SCH (07:54)
[2018-01-19] MEDS: Enoxaparin Sodium 40 MG/0.4 ML SYRINGE SC SCH (07:55)
[2018-01-19] MEDS: Famotidine 20 MG TAB PO SCH ×2 (07:55→20:35)
[2018-01-19] MEDS: Anastrozole 1 MG TAB PO SCH (07:55)
[2018-01-19] MEDS: HYDROcodone/Acetaminophen 10/325 mg Tablet PO PRN ×3 (08:09→18:14)
--- NOTE | 2018-01-19 12:10 | PDOC.PN ---
- Subjective Encounter Start Date: 01/19/18 Encounter Start Time: 08:30 Patient seen and examined. No new complaints. No overnight events - Objective MAR Reviewed: Yes Vital Signs & Weight: Vital Signs (12 hours) Temp Pulse Resp BP Pulse Ox 01/19/18 08:00 98.7 F 91 20 132/73 97 01/19/18 04:00 97.8 F 90 16 149/77 H 94 L Weight Admit Weight 101 lb 8 oz Weight 101 lb 8 oz I&O: 01/18/18 01/19/18 01/20/18 06:59 06:59 06:59 Intake Total 550 373 Output Total 100 Balance 550 273 Result Diagrams: 01/13/18 03:42 01/13/18 03:42 Additional Labs: Accuchecks 01/19/18 01/19/18 01/18/18 11:24 05:37 19:19 POC Glucose 95 92 121 H 01/18/18 01/18/18 16:59 12:09 POC Glucose 96 98 Phys Exam - Physical Examination Constitutional: NAD malnourished HEENT: PERRLA, moist MMs, sclera anicteric Neck: no JVD, supple Respiratory: no wheezing, no rales, no rhonchi Cardiovascular: RRR, no significant murmur, no rub Gastrointestinal: soft, non-tender, no distention, positive bowel sounds Musculoskeletal: no edema, pulses present wound vac in sacral area aphasia Lymphatic: no nodes Psychiatric: normal affect Skin: no rash, normal turgor Dx/Plan (1) Sacral decubitus ulcer Status: Acute Qualifiers: Pressure ulcer stage: stage 4 Qualified Code(s): L89.154 - Pressure ulcer of sacral region, stage 4 Comment: s/p debridement and wound vac. Continue IV Rocephin and IV vancomycin. (2) UTI (urinary tract infection) Status: Acute Comment: on IV Rocephin (3) Aphasia Code(s): R47.01 - APHASIA Status: Chronic (4) DM type 2 (diabetes mellitus, type 2) Status: Chronic Comment: controlled (5) H/O: CVA (cerebrovascular accident) Code(s): Z86.73 - PRSNL HX OF TIA (TIA), AND CEREB INFRC W/O RESID DEFICITS Status: Chronic Comment: stable (6) HLD (hyperlipidemia) Code(s): E78.5 - HYPERLIPIDEMIA, UNSPECIFIED Status: Chronic (7) HTN (hypertension) Code(s): I10 - ESSENTIAL (PRIMARY) HYPERTENSION Status: Chronic Comment: monitor vital signs and titrate antihypertensives as needed (8) Hypothyroidism Code(s): E03.9 - HYPOTHYROIDISM, UNSPECIFIED Status: Chronic Comment: continue levothyroxine (9) Moderate protein malnutrition Code(s): E44.0 - MODERATE PROTEIN-CALORIE MALNUTRITION Status: Chronic Comment: follow dietitian recs - Plan cont current plan of care, plan discussed w/ family, continue antibiotics, social welfare clerk * I spoke with , he is very difficult to explain, he does not want SNU, he does not want to take her home with wound vac and home health and he is demanding to stay in hospital until wound gets better * medication reviewed as below * symptomatic treatment * continue wound care and current antibiotics in hospital for now. Review of Systems - Review of Systems Other: unable to review due to her level of cognitive status and aphasia - Medications/Allergies Allergies/Adverse Reactions: Allergies Allergy/AdvReac Type Severity Reaction Status Date / Time Penicillins Allergy Verified 08/02/15 03:57 valproic acid Allergy SOMNOLENCE Verified 08/05/15 14:36 Medications: Current Medications Acetaminophen (Tylenol) 650 mg PO Q4H PRN PRN Reason: Headache/Fever or Pain Acetaminophen (Tylenol) 650 mg [place] Q4H PRN PRN Reason: Headache/Fever or Pain Hydrocodone Bitart/Acetaminophen ([place] 10/325) 1 tab PO Q4H PRN PRN Reason: Moderate Pain (4-6) Last Admin: 01/19/18 08:09 Dose: 1 tab Hydrocodone Bitart/Acetaminophen ([place] 5/325) 1 tab PO Q4H PRN PRN Reason: Moderate Pain (4-6) Al Hydroxide/Mg Hydroxide (Maalox) 30 ml PO Q6H PRN PRN Reason: Heartburn or Indigestion Amiodarone HCl (Cordarone) 200 mg PO DAILY [facility] Last Admin: 01/19/18 07:54 Dose: 200 mg Anastrozole (Arimidex) 1 mg PO DAILY [facility] Last Admin: 01/19/18 07:55 Dose: 1 mg Aspirin (Aspirin) 325 mg PO DAILY [facility] Last Admin: 01/19/18 07:54 Dose: 325 mg Bisacodyl (Dulcolax) 10 mg [place] Q24H PRN PRN Reason: Constipation Dextrose/Water (Dextrose 50%) 25 gm SLOW IVP PRN PRN PRN Reason: Hypoglycemia Diphenhydramine HCl (Benadryl) 25 mg PO Q6HR PRN PRN Reason: Allergies Docusate Sodium (Colace) 100 mg PO BID [facility] Last Admin: 01/19/18 07:53 Dose: 100 mg Enoxaparin Sodium (Lovenox) 40 mg SC 0900 [facility] Last Admin: 01/19/18 07:55 Dose: 40 mg Famotidine (Pepcid) 20 mg PO BID [facility] Last Admin: 01/19/18 07:55 Dose: 20 mg Glucagon (Glucagon) 1 mg IM PRN PRN PRN Reason: Hypoglycemia Dextrose/Water (D5w) 1,000 mls @ 0 mls/hr IV .Q0M PRN; As Directed PRN Reason: Hypoglycemia Ceftriaxone Sodium 1 gm/ (Syringe 0.4 ml/ Sterile Water) 10 mls @ 120 mls/hr SLOW IVP Q24HR [facility] Last Admin: 01/18/18 16:09 Dose: 10 mls Vancomycin HCl 1 gm/ Device 200 mls @ 200 mls/hr IVPB 0100,1300 [facility] Last Admin: 01/19/18 01:04 Dose: 200 mls Insulin Human Lispro (Humalog) 0 units SC .MILD SLIDING SCALE PRN PRN Reason: Mild Correctional Scale Levetiracetam (Keppra Oral Solution) 500 mg PO [facility] Levothyroxine Sodium (Synthroid) 175 mcg PO 0600 [facility] Last Admin: 01/19/18 05:44 Dose: 175 mcg Metformin HCl (Glucophage) 500 mg PO QAM-WM [facility] Last Admin: 01/19/18 07:54 Dose: 500 mg Ondansetron HCl (Zofran) 4 mg IVP Q6H PRN PRN Reason: Nausea/Vomiting Last Admin: 01/18/18 09:03 Dose: 4 mg Pantoprazole Sodium (Protonix) 40 mg PO 2100 [facility] Last Admin: 01/18/18 21:17 Dose: 40 mg Pyridoxine HCl (Vitamin B 6) 50 mg PO DAILY [facility] Last Admin: 01/19/18 07:54 Dose: 50 mg Sodium Chloride (Flush - Normal Saline) 10 ml IVF Q12HR [facility] Last Admin: 01/19/18 07:56 Dose: Not Given Sodium Chloride (Flush - Normal Saline) 10 ml IVF PRN PRN PRN Reason: Saline Flush Sodium Hypochlorite ([place] Half Strength 0.25% Solution) 480 ml TOP DAILY [facility] Zolpidem Tartrate (Ambien) 5 mg PO HSPRN PRN PRN Reason: Insomnia
[2018-01-19] MEDS: Sodium Hypochlorite 0.25% Solution 480 ML BOT TOP SCH (14:09)
[2018-01-19] MEDS: cefTRIAXone\\ROCEPHIN 1 GM, Syringe 0.4 ML in Sterile Water 9.6 ML SLOW IVP SCH (17:28)
[2018-01-19] MEDS: levETIRAcetam 500 mg/5 ml Oral Solution PO SCH (20:36)
[2018-01-20] MEDS: Vancomycin HCl 1 GM in Premix Bag 1 BAG IVPB SCH ×2 (01:15→12:24)
[2018-01-20] MEDS: Levothyroxine 175 MCG TAB PO SCH (05:39)
[2018-01-20] MEDS: HYDROcodone/Acetaminophen 5/325 mg Tablet PO PRN ×3 (05:39→17:29)
[2018-01-20] MEDS: Amiodarone 200 MG TAB PO SCH (07:57)
[2018-01-20] MEDS: metFORMIN 500 MG TAB PO SCH (07:57)
[2018-01-20] MEDS: Anastrozole 1 MG TAB PO SCH (07:57)
[2018-01-20] MEDS: Famotidine 20 MG TAB PO SCH ×2 (07:57→20:17)
[2018-01-20] MEDS: Aspirin 325 MG TAB PO SCH (07:57)
[2018-01-20] MEDS: Docusate 100 MG CAP PO SCH ×2 (07:58→20:17)
[2018-01-20] MEDS: pyridOXINE 50 MG (B6) TAB PO SCH (07:58)
[2018-01-20] MEDS: Enoxaparin Sodium 40 MG/0.4 ML SYRINGE SC SCH (07:58)
[2018-01-20] MEDS: Sodium Hypochlorite 0.25% Solution 480 ML BOT TOP SCH (07:59)
--- NOTE | 2018-01-20 11:30 | PDOC.PN ---
- Subjective Encounter Start Date: 01/20/18 Encounter Start Time: 08:15 Patient seen and examined. No new complaints. No overnight events - Objective MAR Reviewed: Yes Vital Signs & Weight: Vital Signs (12 hours) Temp Pulse Resp BP Pulse Ox 01/20/18 08:00 98.5 F 91 16 94 L 01/20/18 07:24 98.5 F 91 16 124/66 94 L 01/20/18 04:00 98.8 F 90 18 135/74 93 L 01/20/18 00:00 98.3 F 93 16 132/73 94 L Weight Admit Weight 101 lb 8 oz Weight 101 lb 8 oz I&O: 01/19/18 01/20/18 01/21/18 06:59 06:59 06:59 Intake Total 373 810 Output Total 100 4 Balance 273 806 Result Diagrams: 01/13/18 03:42 01/13/18 03:42 Additional Labs: Accuchecks 01/20/18 01/19/18 01/19/18 05:44 19:47 16:34 POC Glucose 100 103 90 01/19/18 11:24 POC Glucose 95 Phys Exam - Physical Examination Constitutional: NAD HEENT: PERRLA, moist MMs, sclera anicteric Neck: no JVD, supple Respiratory: no wheezing, no rales, no rhonchi Cardiovascular: RRR, no significant murmur, no rub Gastrointestinal: soft, non-tender, no distention, positive bowel sounds Musculoskeletal: no edema, pulses present wound vac in place aphasia Psychiatric: normal affect Skin: no rash, normal turgor Dx/Plan (1) Sacral decubitus ulcer Status: Acute Qualifiers: Pressure ulcer stage: stage 4 Qualified Code(s): L89.154 - Pressure ulcer of sacral region, stage 4 Comment: s/p debridement and wound vac. Continue IV Rocephin and IV vancomycin. (2) UTI (urinary tract infection) Status: Acute Comment: on IV Rocephin (3) Aphasia Code(s): R47.01 - APHASIA Status: Chronic (4) DM type 2 (diabetes mellitus, type 2) Status: Chronic Comment: controlled (5) H/O: CVA (cerebrovascular accident) Code(s): Z86.73 - PRSNL HX OF TIA (TIA), AND CEREB INFRC W/O RESID DEFICITS Status: Chronic Comment: stable (6) HLD (hyperlipidemia) Code(s): E78.5 - HYPERLIPIDEMIA, UNSPECIFIED Status: Chronic (7) HTN (hypertension) Code(s): I10 - ESSENTIAL (PRIMARY) HYPERTENSION Status: Chronic Comment: monitor vital signs and titrate antihypertensives as needed (8) Hypothyroidism Code(s): E03.9 - HYPOTHYROIDISM, UNSPECIFIED Status: Chronic Comment: continue levothyroxine (9) Moderate protein malnutrition Code(s): E44.0 - MODERATE PROTEIN-CALORIE MALNUTRITION Status: Chronic Comment: follow dietitian recs - Plan cont current plan of care, continue antibiotics, social welfare research worker * as pt is in hospital, we are giving iv antibiotics * she is stable for discharge * her is not wanting discharge until wound healed but this is not realistic as it will take several weeks, pt can be similarly taken care at home with home health with wound vac but he does not want to go with wound vac on her and he does not want placement * i do not know what i can do to explain him. Review of Systems - Review of Systems Other: not reliable with pt due to aphasia and her level of cognitive status - Medications/Allergies Allergies/Adverse Reactions: Allergies Allergy/AdvReac Type Severity Reaction Status Date / Time Penicillins Allergy Verified 08/02/15 03:57 valproic acid Allergy SOMNOLENCE Verified 08/05/15 14:36 Medications: Current Medications Acetaminophen (Tylenol) 650 mg PO Q4H PRN PRN Reason: Headache/Fever or Pain Acetaminophen (Tylenol) 650 mg [place] Q4H PRN PRN Reason: Headache/Fever or Pain Hydrocodone Bitart/Acetaminophen ([place] 5/325) 1 tab PO Q4H PRN PRN Reason: Severe Pain (7-10) Stop: 01/22/18 03:31 Last Admin: 01/20/18 11:10 Dose: 1 tab Al Hydroxide/Mg Hydroxide (Maalox) 30 ml PO Q6H PRN PRN Reason: Heartburn or Indigestion Amiodarone HCl (Cordarone) 200 mg PO DAILY [facility] Last Admin: 01/20/18 07:57 Dose: 200 mg Anastrozole (Arimidex) 1 mg PO DAILY [facility] Last Admin: 01/20/18 07:57 Dose: 1 mg Aspirin (Aspirin) 325 mg PO DAILY [facility] Last Admin: 01/20/18 07:57 Dose: 325 mg Bisacodyl (Dulcolax) 10 mg [place] Q24H PRN PRN Reason: Constipation Last Admin: 01/19/18 14:09 Dose: 10 mg Dextrose/Water (Dextrose 50%) 25 gm SLOW IVP PRN PRN PRN Reason: Hypoglycemia Diphenhydramine HCl (Benadryl) 25 mg PO Q6HR PRN PRN Reason: Allergies Docusate Sodium (Colace) 100 mg PO BID [facility] Last Admin: 01/20/18 07:58 Dose: 100 mg Enoxaparin Sodium (Lovenox) 40 mg SC 0900 [facility] Last Admin: 01/20/18 07:58 Dose: 40 mg Famotidine (Pepcid) 20 mg PO BID [facility] Last Admin: 01/20/18 07:57 Dose: 20 mg Glucagon (Glucagon) 1 mg IM PRN PRN PRN Reason: Hypoglycemia Dextrose/Water (D5w) 1,000 mls @ 0 mls/hr IV .Q0M PRN; As Directed PRN Reason: Hypoglycemia Ceftriaxone Sodium 1 gm/ (Syringe 0.4 ml/ Sterile Water) 10 mls @ 120 mls/hr SLOW IVP Q24HR [facility] Last Admin: 01/19/18 17:28 Dose: 10 mls Vancomycin HCl 1 gm/ Device 200 mls @ 200 mls/hr IVPB 0100,1300 [facility] Last Admin: 01/20/18 01:15 Dose: 200 mls Insulin Human Lispro (Humalog) 0 units SC .MILD SLIDING SCALE PRN PRN Reason: Mild Correctional Scale Levetiracetam (Keppra Oral Solution) 500 mg PO HS [facility] Last Admin: 01/19/18 20:36 Dose: 500 mg Levothyroxine Sodium (Synthroid) 175 mcg PO 0600 [facility] Last Admin: 01/20/18 05:39 Dose: 175 mcg Metformin HCl (Glucophage) 500 mg PO QAM-WM [facility] Last Admin: 01/20/18 07:57 Dose: 500 mg Ondansetron HCl (Zofran) 4 mg IVP Q6H PRN PRN Reason: Nausea/Vomiting Last Admin: 01/18/18 09:03 Dose: 4 mg Pantoprazole Sodium (Protonix) 40 mg PO 2100 [facility] Last Admin: 01/19/18 20:35 Dose: 40 mg Pyridoxine HCl (Vitamin B 6) 50 mg PO DAILY [facility] Last Admin: 01/20/18 07:58 Dose: 50 mg Sodium Chloride (Flush - Normal Saline) 10 ml IVF Q12HR [facility] Last Admin: 01/20/18 07:59 Dose: Not Given Sodium Chloride (Flush - Normal Saline) 10 ml IVF PRN PRN PRN Reason: Saline Flush Sodium Hypochlorite ([place]'s Half Strength 0.25% Solution) 480 ml TOP DAILY [facility] Last Admin: 01/20/18 07:59 Dose: 480 ml Zolpidem Tartrate (Ambien) 5 mg PO HSPRN PRN PRN Reason: Insomnia
[2018-01-20 12:29] LABS: Vancomycin, Trough 19.5 ug/mL
[2018-01-20] MEDS: cefTRIAXone\\ROCEPHIN 1 GM, Syringe 0.4 ML in Sterile Water 9.6 ML SLOW IVP SCH (17:29)
[2018-01-20] MEDS: levETIRAcetam 500 mg/5 ml Oral Solution PO SCH (20:17)
[2018-01-21] MEDS: Vancomycin HCl 1 GM in Premix Bag 1 BAG IVPB SCH ×2 (00:33→13:19)
[2018-01-21] MEDS: Levothyroxine 175 MCG TAB PO SCH (06:08)
[2018-01-21] MEDS: Docusate 100 MG CAP PO SCH ×2 (08:28→21:08)
[2018-01-21] MEDS: Anastrozole 1 MG TAB PO SCH (08:28)
[2018-01-21] MEDS: pyridOXINE 50 MG (B6) TAB PO SCH (08:28)
[2018-01-21] MEDS: Famotidine 20 MG TAB PO SCH ×2 (08:28→21:08)
[2018-01-21] MEDS: Aspirin 325 MG TAB PO SCH (08:28)
[2018-01-21] MEDS: Amiodarone 200 MG TAB PO SCH (08:28)
[2018-01-21] MEDS: metFORMIN 500 MG TAB PO SCH (08:28)
[2018-01-21] MEDS: Enoxaparin Sodium 40 MG/0.4 ML SYRINGE SC SCH (08:29)
[2018-01-21] MEDS: Sodium Hypochlorite 0.25% Solution 480 ML BOT TOP SCH (08:29)
[2018-01-21] MEDS: HYDROcodone/Acetaminophen 5/325 mg Tablet PO PRN ×3 (09:03→21:09)
--- NOTE | 2018-01-21 10:28 | PDOC.PN ---
- Subjective Encounter Start Date: 01/21/18 Encounter Start Time: 08:30 Patient seen and examined. No new complaints. No overnight events - Objective MAR Reviewed: Yes Vital Signs & Weight: Vital Signs (12 hours) Temp Pulse Resp BP Pulse Ox 01/21/18 08:00 98.2 F 85 16 96 01/21/18 07:17 98.2 F 85 16 123/71 96 Weight Admit Weight 101 lb 8 oz Weight 101 lb 8 oz I&O: 01/20/18 01/21/18 01/22/18 06:59 06:59 06:59 Intake Total 810 740 240 Output Total 4 Balance 806 740 240 Result Diagrams: 01/13/18 03:42 01/13/18 03:42 Additional Labs: Accuchecks 01/21/18 01/20/18 01/20/18 05:57 19:25 16:18 POC Glucose 91 99 98 01/20/18 11:49 POC Glucose 99 Phys Exam - Physical Examination Constitutional: NAD HEENT: PERRLA, moist MMs, sclera anicteric Neck: no JVD, supple Respiratory: no wheezing, no rales, no rhonchi Cardiovascular: RRR, no significant murmur, no rub Gastrointestinal: soft, non-tender, no distention, positive bowel sounds Musculoskeletal: no edema, pulses present wound with wound vac over sacral area Lymphatic: no nodes Psychiatric: normal affect Skin: no rash, normal turgor Dx/Plan (1) Sacral decubitus ulcer Status: Acute Qualifiers: Pressure ulcer stage: stage 4 Qualified Code(s): L89.154 - Pressure ulcer of sacral region, stage 4 Comment: s/p debridement and wound vac. Continue IV Rocephin and IV vancomycin. (2) UTI (urinary tract infection) Status: Acute Comment: on IV Rocephin (3) Aphasia Code(s): R47.01 - APHASIA Status: Chronic (4) DM type 2 (diabetes mellitus, type 2) Status: Chronic Comment: controlled (5) H/O: CVA (cerebrovascular accident) Code(s): Z86.73 - PRSNL HX OF TIA (TIA), AND CEREB INFRC W/O RESID DEFICITS Status: Chronic Comment: stable (6) HLD (hyperlipidemia) Code(s): E78.5 - HYPERLIPIDEMIA, UNSPECIFIED Status: Chronic (7) HTN (hypertension) Code(s): I10 - ESSENTIAL (PRIMARY) HYPERTENSION Status: Chronic Comment: monitor vital signs and titrate antihypertensives as needed (8) Hypothyroidism Code(s): E03.9 - HYPOTHYROIDISM, UNSPECIFIED Status: Chronic Comment: continue levothyroxine (9) Moderate protein malnutrition Code(s): E44.0 - MODERATE PROTEIN-CALORIE MALNUTRITION Status: Chronic Comment: follow dietitian recs - Plan cont current plan of care, continue antibiotics, bilingual social worker * continue wound care * nutritional support * medication reviewed as below * symptomatic treatment * tomorrow last day of IV antibiotics * case maker working on her discharge plan. Review of Systems - Review of Systems Other: not reliable with pt as pt has aphasia and base on on her cognitive status - Medications/Allergies Allergies/Adverse Reactions: Allergies Allergy/AdvReac Type Severity Reaction Status Date / Time Penicillins Allergy Verified 08/02/15 03:57 valproic acid Allergy SOMNOLENCE Verified 08/05/15 14:36 Medications: Current Medications Acetaminophen (Tylenol) 650 mg PO Q4H PRN PRN Reason: Headache/Fever or Pain Acetaminophen (Tylenol) 650 mg IA Q4H PRN PRN Reason: Headache/Fever or Pain Hydrocodone Bitart/Acetaminophen ([place] 5/325) 1 tab PO Q4H PRN PRN Reason: Severe Pain (7-10) Stop: 01/22/18 03:31 Last Admin: 01/21/18 09:03 Dose: 1 tab Al Hydroxide/Mg Hydroxide (Maalox) 30 ml PO Q6H PRN PRN Reason: Heartburn or Indigestion Amiodarone HCl (Cordarone) 200 mg PO DAILY [facility] Last Admin: 01/21/18 08:28 Dose: 200 mg Anastrozole (Arimidex) 1 mg PO DAILY [facility] Last Admin: 01/21/18 08:28 Dose: 1 mg Aspirin (Aspirin) 325 mg PO DAILY [facility] Last Admin: 01/21/18 08:28 Dose: 325 mg Bisacodyl (Dulcolax) 10 mg IA Q24H PRN PRN Reason: Constipation Last Admin: 01/19/18 14:09 Dose: 10 mg Dextrose/Water (Dextrose 50%) 25 gm SLOW IVP PRN PRN PRN Reason: Hypoglycemia Diphenhydramine HCl (Benadryl) 25 mg PO Q6HR PRN PRN Reason: Allergies Docusate Sodium (Colace) 100 mg PO BID [facility] Last Admin: 01/21/18 08:28 Dose: 100 mg Enoxaparin Sodium (Lovenox) 40 mg SC 0900 [facility] Last Admin: 01/21/18 08:29 Dose: 40 mg Famotidine (Pepcid) 20 mg PO BID [facility] Last Admin: 01/21/18 08:28 Dose: 20 mg Glucagon (Glucagon) 1 mg IM PRN PRN PRN Reason: Hypoglycemia Dextrose/Water (D5w) 1,000 mls @ 0 mls/hr IV .Q0M PRN; As Directed PRN Reason: Hypoglycemia Ceftriaxone Sodium 1 gm/ (Syringe 0.4 ml/ Sterile Water) 10 mls @ 120 mls/hr SLOW IVP Q24HR [facility] Last Admin: 01/20/18 17:29 Dose: 10 mls Vancomycin HCl 1 gm/ Device 200 mls @ 200 mls/hr IVPB 0100,1300 [facility] Last Admin: 01/21/18 00:33 Dose: 200 mls Insulin Human Lispro (Humalog) 0 units SC .MILD SLIDING SCALE PRN PRN Reason: Mild Correctional Scale Levetiracetam (Keppra Oral Solution) 500 mg PO HS [facility] Last Admin: 01/20/18 20:17 Dose: 500 mg Levothyroxine Sodium (Synthroid) 175 mcg PO 0600 [facility] Last Admin: 01/21/18 06:08 Dose: 175 mcg Metformin HCl (Glucophage) 500 mg PO QAM-WM [facility] Last Admin: 01/21/18 08:28 Dose: 500 mg Ondansetron HCl (Zofran) 4 mg IVP Q6H PRN PRN Reason: Nausea/Vomiting Last Admin: 01/18/18 09:03 Dose: 4 mg Pantoprazole Sodium (Protonix) 40 mg PO 2100 [facility] Last Admin: 01/20/18 20:17 Dose: 40 mg Pyridoxine HCl (Vitamin B 6) 50 mg PO DAILY [facility] Last Admin: 01/21/18 08:28 Dose: 50 mg Sodium Chloride (Flush - Normal Saline) 10 ml IVF Q12HR [facility] Last Admin: 01/21/18 08:29 Dose: Not Given Sodium Chloride (Flush - Normal Saline) 10 ml IVF PRN PRN PRN Reason: Saline Flush Sodium Hypochlorite (Dakin's Half Strength 0.25% Solution) 480 ml TOP DAILY [facility] Last Admin: 01/21/18 08:29 Dose: 480 ml Zolpidem Tartrate (Ambien) 5 mg PO HSPRN PRN PRN Reason: Insomnia
[2018-01-21] MEDS: cefTRIAXone\\ROCEPHIN 1 GM, Syringe 0.4 ML in Sterile Water 9.6 ML SLOW IVP SCH (17:38)
[2018-01-21] MEDS: levETIRAcetam 500 mg/5 ml Oral Solution PO SCH (21:09)
[2018-01-22] MEDS: Vancomycin HCl 1 GM in Premix Bag 1 BAG IVPB SCH (00:02)
[2018-01-22] MEDS: Levothyroxine 175 MCG TAB PO SCH (05:39)
[2018-01-22] MEDS: Enoxaparin Sodium 40 MG/0.4 ML SYRINGE SC SCH (08:13)
[2018-01-22] MEDS: Aspirin 325 MG TAB PO SCH (08:13)
[2018-01-22] MEDS: Famotidine 20 MG TAB PO SCH ×2 (08:13→20:10)
[2018-01-22] MEDS: Anastrozole 1 MG TAB PO SCH (08:13)
[2018-01-22] MEDS: Amiodarone 200 MG TAB PO SCH (08:13)
[2018-01-22] MEDS: metFORMIN 500 MG TAB PO SCH (08:13)
[2018-01-22] MEDS: Docusate 100 MG CAP PO SCH ×2 (08:13→20:10)
[2018-01-22] MEDS: pyridOXINE 50 MG (B6) TAB PO SCH (08:13)
[2018-01-22] MEDS: Sodium Hypochlorite 0.25% Solution 480 ML BOT TOP SCH (08:15)
--- NOTE | 2018-01-22 09:29 | PDOC.PN ---
- Subjective Encounter Start Date: 01/22/18 Encounter Start Time: 07:40 Patient seen and examined. No overnight events - Objective MAR Reviewed: Yes Vital Signs & Weight: Vital Signs (12 hours) Temp Pulse Resp BP Pulse Ox 01/22/18 07:04 97.7 F 81 16 154/81 H 100 Weight Admit Weight 101 lb 8 oz Weight 101 lb 8 oz I&O: 01/21/18 01/22/18 01/23/18 06:59 06:59 06:59 Intake Total 740 1160 Balance 740 1160 Result Diagrams: 01/13/18 03:42 01/13/18 03:42 Additional Labs: Accuchecks 01/22/18 01/21/18 01/21/18 05:40 21:01 16:23 POC Glucose 84 85 90 01/21/18 11:16 POC Glucose 96 Phys Exam - Physical Examination Constitutional: NAD malnourished HEENT: PERRLA, moist MMs, sclera anicteric Neck: no JVD, supple Respiratory: no wheezing, no rales, no rhonchi Cardiovascular: RRR, no significant murmur, no rub Gastrointestinal: soft, non-tender, no distention, positive bowel sounds Musculoskeletal: no edema, pulses present wound with dressing Lymphatic: no nodes Psychiatric: normal affect Skin: no rash, normal turgor Dx/Plan (1) Sacral decubitus ulcer Status: Acute Qualifiers: Pressure ulcer stage: stage 4 Qualified Code(s): L89.154 - Pressure ulcer of sacral region, stage 4 Comment: s/p debridement (2) UTI (urinary tract infection) Status: Acute Comment: (3) Aphasia Code(s): R47.01 - APHASIA Status: Chronic (4) DM type 2 (diabetes mellitus, type 2) Status: Chronic Comment: controlled (5) H/O: CVA (cerebrovascular accident) Code(s): Z86.73 - PRSNL HX OF TIA (TIA), AND CEREB INFRC W/O RESID DEFICITS Status: Chronic Comment: stable (6) HLD (hyperlipidemia) Code(s): E78.5 - HYPERLIPIDEMIA, UNSPECIFIED Status: Chronic (7) HTN (hypertension) Code(s): I10 - ESSENTIAL (PRIMARY) HYPERTENSION Status: Chronic Comment: monitor vital signs and titrate antihypertensives as needed (8) Hypothyroidism Code(s): E03.9 - HYPOTHYROIDISM, UNSPECIFIED Status: Chronic Comment: continue levothyroxine (9) Moderate protein malnutrition Code(s): E44.0 - MODERATE PROTEIN-CALORIE MALNUTRITION Status: Chronic Comment: follow dietitian recs - Plan cont current plan of care, plan discussed w/ family, continue antibiotics, psychosocial rehabilitation counselor * pt has finished iv antibiotic course in hospital * i spoke with , 2 son bedside, updated plan of care and discharge planning * family wanted to talk to pillowcase folder regarding what maximum help can be arranged at home on discharge, as can not take care of her totally * they do not want peg tube and they do not like snf placement * medication reviewed as below * symptomatic treatment. Review of Systems - Review of Systems Other: not reliable due to aphasia and cognitive status - Medications/Allergies Allergies/Adverse Reactions: Allergies Allergy/AdvReac Type Severity Reaction Status Date / Time Penicillins Allergy Verified 08/02/15 03:57 valproic acid Allergy SOMNOLENCE Verified 08/05/15 14:36 Medications: Current Medications Acetaminophen (Tylenol) 650 mg PO Q4H PRN PRN Reason: Headache/Fever or Pain Acetaminophen (Tylenol) 650 mg MT Q4H PRN PRN Reason: Headache/Fever or Pain Hydrocodone Bitart/Acetaminophen ([place] 5/325) 1 tab PO Q4H PRN PRN Reason: Pain Last Admin: 01/21/18 21:09 Dose: 1 tab Al Hydroxide/Mg Hydroxide (Maalox) 30 ml PO Q6H PRN PRN Reason: Heartburn or Indigestion Amiodarone HCl (Cordarone) 200 mg PO DAILY [facility] Last Admin: 01/22/18 08:13 Dose: 200 mg Anastrozole (Arimidex) 1 mg PO DAILY [facility] Last Admin: 01/22/18 08:13 Dose: 1 mg Aspirin (Aspirin) 325 mg PO DAILY [facility] Last Admin: 01/22/18 08:13 Dose: 325 mg Bisacodyl (Dulcolax) 10 mg [place] Q24H PRN PRN Reason: Constipation Last Admin: 01/19/18 14:09 Dose: 10 mg Dextrose/Water (Dextrose 50%) 25 gm SLOW IVP PRN PRN PRN Reason: Hypoglycemia Diphenhydramine HCl (Benadryl) 25 mg PO Q6HR PRN PRN Reason: Allergies Docusate Sodium (Colace) 100 mg PO BID [facility] Last Admin: 01/22/18 08:13 Dose: 100 mg Enoxaparin Sodium (Lovenox) 40 mg SC 0900 [facility] Last Admin: 01/22/18 08:13 Dose: 40 mg Famotidine (Pepcid) 20 mg PO BID [facility] Last Admin: 01/22/18 08:13 Dose: 20 mg Glucagon (Glucagon) 1 mg IM PRN PRN PRN Reason: Hypoglycemia Dextrose/Water (D5w) 1,000 mls @ 0 mls/hr IV .Q0M PRN; As Directed PRN Reason: Hypoglycemia Ceftriaxone Sodium 1 gm/ (Syringe 0.4 ml/ Sterile Water) 10 mls @ 120 mls/hr SLOW IVP Q24HR [facility] Last Admin: 01/21/18 17:38 Dose: 10 mls Vancomycin HCl 1 gm/ Device 200 mls @ 200 mls/hr IVPB 0100,1300 [facility] Last Admin: 01/22/18 00:02 Dose: 200 mls Insulin Human Lispro (Humalog) 0 units SC .MILD SLIDING SCALE PRN PRN Reason: Mild Correctional Scale Levetiracetam (Keppra Oral Solution) 500 mg PO HS [facility] Last Admin: 01/21/18 21:09 Dose: 500 mg Levothyroxine Sodium (Synthroid) 175 mcg PO 0600 [facility] Last Admin: 01/22/18 05:39 Dose: 175 mcg Metformin HCl (Glucophage) 500 mg PO QAM-WM [facility] Last Admin: 01/22/18 08:13 Dose: 500 mg Ondansetron HCl (Zofran) 4 mg IVP Q6H PRN PRN Reason: Nausea/Vomiting Last Admin: 01/18/18 09:03 Dose: 4 mg Pantoprazole Sodium (Protonix) 40 mg PO 2100 [facility] Last Admin: 01/21/18 21:08 Dose: 40 mg Pyridoxine HCl (Vitamin B 6) 50 mg PO DAILY [facility] Last Admin: 01/22/18 08:13 Dose: 50 mg Sodium Chloride (Flush - Normal Saline) 10 ml IVF Q12HR [facility] Last Admin: 01/22/18 08:14 Dose: 10 ml Sodium Chloride (Flush - Normal Saline) 10 ml IVF PRN PRN PRN Reason: Saline Flush Sodium Hypochlorite (Dakin's Half Strength 0.25% Solution) 480 ml TOP DAILY [facility] Last Admin: 01/22/18 08:15 Dose: 480 ml Zolpidem Tartrate (Ambien) 5 mg PO HSPRN PRN PRN Reason: Insomnia
[2018-01-22] MEDS: HYDROcodone/Acetaminophen 5/325 mg Tablet PO PRN ×3 (09:39→20:10)
[2018-01-22] MEDS: levETIRAcetam 500 mg/5 ml Oral Solution PO SCH (20:10)
[2018-01-23] MEDS: Levothyroxine 175 MCG TAB PO SCH (05:23)
[2018-01-23] MEDS: Aspirin 325 MG TAB PO SCH (08:11)
[2018-01-23] MEDS: Amiodarone 200 MG TAB PO SCH (08:11)
[2018-01-23] MEDS: Sodium Hypochlorite 0.25% Solution 480 ML BOT TOP SCH (08:12)
[2018-01-23] MEDS: metFORMIN 500 MG TAB PO SCH (08:12)
[2018-01-23] MEDS: Famotidine 20 MG TAB PO SCH ×2 (08:12→20:47)
[2018-01-23] MEDS: Docusate 100 MG CAP PO SCH ×2 (08:12→20:47)
[2018-01-23] MEDS: pyridOXINE 50 MG (B6) TAB PO SCH (08:12)
[2018-01-23] MEDS: Enoxaparin Sodium 40 MG/0.4 ML SYRINGE SC SCH (08:12)
[2018-01-23] MEDS: Anastrozole 1 MG TAB PO SCH (08:13)
[2018-01-23] MEDS: HYDROcodone/Acetaminophen 5/325 mg Tablet PO PRN ×2 (09:15→20:47)
--- NOTE | 2018-01-23 13:52 | PDOC.PN ---
- Subjective Encounter Start Date: 01/23/18 Encounter Start Time: 13:50 Patient seen and examined, no new issues, family at bedside, all questions answered. - Objective Vital Signs & Weight: Vital Signs (12 hours) Temp Pulse Resp BP Pulse Ox 01/23/18 08:00 98.3 F 88 20 152/89 H 97 Weight Admit Weight 101 lb 8 oz Weight 101 lb 8 oz I&O: 01/22/18 01/23/18 01/24/18 06:59 06:59 06:59 Intake Total 1160 490 Balance 1160 490 Result Diagrams: 01/13/18 03:42 01/13/18 03:42 Additional Labs: Accuchecks 01/23/18 01/23/18 01/22/18 13:03 05:24 20:25 POC Glucose 80 92 98 01/22/18 16:06 POC Glucose 96 Phys Exam - Physical Examination Constitutional: NAD HEENT: PERRLA, moist MMs, sclera anicteric Neck: no nodes, no JVD, supple Respiratory: no wheezing, no rales, no rhonchi Cardiovascular: RRR, no significant murmur, no rub Gastrointestinal: soft, non-tender, no distention Musculoskeletal: pulses present, edema present (1+ pitting) Left sided paralysis Dx/Plan (1) Sacral decubitus ulcer Status: Acute Qualifiers: Pressure ulcer stage: stage 4 Qualified Code(s): L89.154 - Pressure ulcer of sacral region, stage 4 Comment: s/p debridement (2) DM type 2 (diabetes mellitus, type 2) Status: Chronic Comment: controlled (3) H/O: CVA (cerebrovascular accident) Code(s): Z86.73 - PRSNL HX OF TIA (TIA), AND CEREB INFRC W/O RESID DEFICITS Status: Chronic Comment: stable (4) HLD (hyperlipidemia) Code(s): E78.5 - HYPERLIPIDEMIA, UNSPECIFIED Status: Chronic (5) HTN (hypertension) Code(s): I10 - ESSENTIAL (PRIMARY) HYPERTENSION Status: Chronic Comment: monitor vital signs and titrate antihypertensives as needed (6) Hypothyroidism Code(s): E03.9 - HYPOTHYROIDISM, UNSPECIFIED Status: Chronic Comment: continue levothyroxine - Plan * Continue current plan of care for now * family discussing hospice options, met with hospital insurance representative today * plan to DC in 24-48hrs once hospice arrangements are made * comfort care measures * case and plan d/w patient's and son at length, they understand and agree with this plan
[2018-01-23] MEDS: levETIRAcetam 500 mg/5 ml Oral Solution PO SCH (20:47)
[2018-01-24] MEDS: Levothyroxine 175 MCG TAB PO SCH (05:41)
[2018-01-24] MEDS: Enoxaparin Sodium 40 MG/0.4 ML SYRINGE SC SCH (07:39)
[2018-01-24] MEDS: Aspirin 325 MG TAB PO SCH (07:39)
[2018-01-24] MEDS: metFORMIN 500 MG TAB PO SCH (07:39)
[2018-01-24] MEDS: Amiodarone 200 MG TAB PO SCH (07:39)
[2018-01-24] MEDS: Docusate 100 MG CAP PO SCH ×2 (07:39→20:30)
[2018-01-24] MEDS: Famotidine 20 MG TAB PO SCH ×2 (07:40→20:30)
[2018-01-24] MEDS: Sodium Hypochlorite 0.25% Solution 480 ML BOT TOP SCH (07:40)
[2018-01-24] MEDS: pyridOXINE 50 MG (B6) TAB PO SCH (07:40)
[2018-01-24] MEDS: Anastrozole 1 MG TAB PO SCH (08:17)
[2018-01-24] MEDS ORDERED: Clopidogrel Bisulfate 75 MG TAB ONE (11:48)
[2018-01-24] MEDS: HYDROcodone/Acetaminophen 5/325 mg Tablet PO PRN ×2 (11:55→17:32)
--- NOTE | 2018-01-24 15:14 | PDOC.PN ---
- Subjective Encounter Start Date: 01/24/18 Encounter Start Time: 15:10 Subjective: f/u for large stage IV sacral decubitus s/p debridement with local care. -: Severe deconditioning s/p CVA and R-hemiplegia, aphasia. Current plans are -: to transition to SNF with Hospice, likely [place]. - Objective MAR Reviewed: Yes Vital Signs & Weight: Vital Signs (12 hours) Temp Pulse Resp BP Pulse Ox 01/24/18 08:00 97.5 F L 87 16 01/24/18 07:37 97.5 F L 87 16 147/77 H 99 Weight Admit Weight 101 lb 8 oz Weight 101 lb 8 oz I&O: 01/23/18 01/24/18 01/25/18 06:59 06:59 06:59 Intake Total 490 360 Balance 490 360 Result Diagrams: 01/13/18 03:42 01/13/18 03:42 Additional Labs: Accuchecks 01/24/18 01/24/18 01/23/18 11:25 05:04 19:12 POC Glucose 84 83 93 01/23/18 16:48 POC Glucose 75 Phys Exam - Physical Examination + pallor, sallow appearance HEENT: PERRLA, oral pharynx no lesions Neck: no nodes, no JVD, supple scattered coarse sounds bilat Respiratory: no wheezing, no rales Cardiovascular: RRR, no significant murmur Gastrointestinal: soft, non-tender, no distention, positive bowel sounds Musculoskeletal: no edema, pulses present R hemiplegia, aphasia Skin: normal turgor, cap refill <2 seconds Dx/Plan (1) Sacral decubitus ulcer Status: Acute Qualifiers: Pressure ulcer stage: stage 4 Qualified Code(s): L89.154 - Pressure ulcer of sacral region, stage 4 Comment: s/p debridement, receiving local care, low-air loss mattress, turning protocol (2) Aphasia Code(s): R47.01 - APHASIA Status: Chronic Comment: Likely impeding proper nutrition, current po intake (3) H/O: CVA (cerebrovascular accident) Code(s): Z86.73 - PRSNL HX OF TIA (TIA), AND CEREB INFRC W/O RESID DEFICITS Status: Chronic Comment: L-MCA distribution CVA with 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
[2018-01-24] MEDS: levETIRAcetam 500 mg/5 ml Oral Solution PO SCH (20:30)
[2018-01-25] MEDS: Levothyroxine 175 MCG TAB PO SCH (04:37)
[2018-01-25] MEDS: HYDROcodone/Acetaminophen 5/325 mg Tablet PO PRN ×2 (04:37→20:07)
[2018-01-25] MEDS: Anastrozole 1 MG TAB PO SCH (08:34)
[2018-01-25] MEDS: Aspirin 325 MG TAB PO SCH (08:34)
[2018-01-25] MEDS: pyridOXINE 50 MG (B6) TAB PO SCH (08:34)
[2018-01-25] MEDS: metFORMIN 500 MG TAB PO SCH (08:34)
[2018-01-25] MEDS: Enoxaparin Sodium 40 MG/0.4 ML SYRINGE SC SCH (08:34)
[2018-01-25] MEDS: Docusate 100 MG CAP PO SCH ×2 (08:34→20:08)
[2018-01-25] MEDS: Amiodarone 200 MG TAB PO SCH (08:34)
[2018-01-25] MEDS: Sodium Hypochlorite 0.25% Solution 480 ML BOT TOP SCH (08:38)
--- NOTE | 2018-01-25 15:20 | PDOC.PN ---
- Subjective Encounter Start Date: 01/25/18 Encounter Start Time: 15:10 Subjective: f/u Stage IV sacral decubitus ulcer s/p debridement and local care with -: severe deconditioning, s/p CVA with aphasia and bedbound status. -: Awaiting approval for SNF/Hospice - Objective MAR Reviewed: Yes Vital Signs & Weight: Vital Signs (12 hours) Temp Pulse Resp BP Pulse Ox 01/25/18 08:00 97.8 F 81 18 97 01/25/18 07:13 97.8 F 81 18 146/79 H 99 Weight Admit Weight 101 lb 8 oz Weight 101 lb 8 oz I&O: 01/24/18 01/25/18 01/26/18 06:59 06:59 06:59 Intake Total 360 1250 480 Balance 360 1250 480 Result Diagrams: 01/13/18 03:42 01/13/18 03:42 Additional Labs: Accuchecks 01/25/18 01/25/18 01/24/18 11:23 05:34 19:22 POC Glucose 76 78 98 01/24/18 15:45 POC Glucose 92 Phys Exam - Physical Examination pale, ill-appearing, opens eyes to name, nods to questions oral mucosa dry HEENT: PERRLA, oral pharynx no lesions Neck: no JVD, supple Respiratory: no wheezing, no rales, no rhonchi, clear to auscultation bilateral Cardiovascular: RRR, no significant murmur, no rub Gastrointestinal: soft, non-tender, no distention, positive bowel sounds Musculoskeletal: no edema, pulses present R hemiplegia, aphasic Skin: normal turgor, cap refill <2 seconds Dx/Plan (1) Sacral decubitus ulcer Status: Acute Qualifiers: Pressure ulcer stage: stage 4 Qualified Code(s): L89.154 - Pressure ulcer of sacral region, stage 4 Comment: s/p debridement, receiving local care, low-air loss mattress, turning protocol (2) Aphasia Code(s): R47.01 - APHASIA Status: Chronic Comment: Likely impeding proper nutrition, current po intake with ADA (3) H/O: CVA (cerebrovascular accident) Code(s): Z86.73 - PRSNL HX OF TIA (TIA), AND CEREB INFRC W/O RESID DEFICITS Status: Chronic Comment: L-MCA distribution CVA with 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, continue ASA 325mg daily (4) HTN (hypertension) Code(s): I10 - ESSENTIAL (PRIMARY) HYPERTENSION Status: Chronic Comment: monitor vital signs and titrate antihypertensives as needed (5) Moderate protein malnutrition Code(s): E44.0 - MODERATE PROTEIN-CALORIE MALNUTRITION Status: Chronic Comment: follow dietitian Zak gallo Juven BID - Plan plan discussed w/ family, social work case manager, speech therapy, DVT proph w/SCDs Stable currently -: Awaiting final approval for SNF/Hospice -: Nutritional supplementation with [place] and Glucerna -: Likely Hospice care after transitioning to [facility] care -: Poor prognosis * Spouse discussing SNF coordination this afternoon
[2018-01-25] MEDS: levETIRAcetam 500 mg/5 ml Oral Solution PO SCH (20:58)
[2018-01-26] MEDS: Levothyroxine 175 MCG TAB PO SCH (05:18)
[2018-01-26] MEDS: Amiodarone 200 MG TAB PO SCH (08:14)
[2018-01-26] MEDS: Aspirin 325 MG TAB PO SCH (08:15)
[2018-01-26] MEDS: metFORMIN 500 MG TAB PO SCH (08:15)
[2018-01-26] MEDS: Docusate 100 MG CAP PO SCH (08:15)
[2018-01-26] MEDS: pyridOXINE 50 MG (B6) TAB PO SCH (08:15)
[2018-01-26] MEDS: Sodium Hypochlorite 0.25% Solution 480 ML BOT TOP SCH (08:16)
[2018-01-26] MEDS: Anastrozole 1 MG TAB PO SCH (08:16)
[2018-01-26] MEDS: Enoxaparin Sodium 40 MG/0.4 ML SYRINGE SC SCH (08:16)
[2018-01-26] MEDS: HYDROcodone/Acetaminophen 5/325 mg Tablet PO PRN (10:04)
--- NOTE | 2018-01-26 13:18 | DIS ---
DATE OF ADMISSION: 01/09/2018 DATE OF DISCHARGE: 01/26/2018 CONDITION AT THE TIME OF DISCHARGE: Stable and improved. DISCHARGE DISPOSITION: To [facility] long term and rehabilitation. DISCHARGE DIAGNOSES: 1. Sacral decubitus ulcer, status post debridement by General Surgery. 2. 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 3. Hypertension. 4. History of cerebrovascular accident. 5. Moderate protein calorie malnutrition. DISCHARGE MEDICATIONS: As follows, pyridoxine 50 mg daily, metformin 500 mg daily, Keppra 500 mg at bedtime, amiodarone 200 mg daily, anastrozole 1 mg daily, aspirin 325 mg daily, Dulcolax as needed, l evothyroxine 175 mcg daily, Protonix 40 mg daily, Tylenol as needed, [place] as needed, Dakin's Half St rength ointment as needed. PRIMARY CARE PHYSICIAN: Dr. Yolette Franco. PROCEDURES DONE IN THE HOSPITAL: Include x-ray of the pelvis, which shows chronic right femoral neck fracture. CONSULTATIONS INHOUSE: Include, 1. General Surgery, Dr. Joy; and Infectious Disease, Dr. Driscoll. 2. I&D of infected stage IV sacral decubitus ulcer by Dr. Joy on 01/10/2018. HISTORY OF PRESENT ILLNESS: Ms. Pat is a 72-year-old female with past medical history of CVA with resultant aphasia and right-sided hemiparesis who was brought in from the rehab facility on 8 for sacral wounds. The patient was admitted with a presumptive diagnosis of possibly infected sacr al decubitus ulcers as her lactic acid was elevated to 2.3 and a C-reactive protein was elevated to 6 .65. Urinalysis was positive for leukocyte esterase. She was started on empiric antibiotics and Gen eral Surgery and Wound Care were consulted. Cultures were sent. Please see admission history and ph ysical for further details. HOSPITAL COURSE: The patient has a prolonged hospitalization due to placement issues. In short, she underwent I&D of sacral decubitus ulcers and continued on IV antibiotics, which were eventually stop ped. Infectious Disease was consulted and Dr. Driscoll also saw the patient. She does not appear to [place] ve bone exposure or osteomyelitis. She finished the course of the antibiotics while in the hospital with Rocephin and vancomycin. Eventually, the patient was hemodynamically stable and was ready to be discharged to rehab facility. The discharge was delayed, because of the patient's family and reluctance to take her out of the hospital. Eventually it all settled and she was accepted to [facility] as per the 's wish es. As of this morning, she has been approved and is medically stable and will be discharged. She was seen and examined prior to discharge. PHYSICAL EXAMINATION: This morning includes, VITAL SIGNS: Temperature 97.6, pulse of 86, respirations 16, saturating 99% on room air, blood press ure 132/81. GENERAL: No acute distress. She is sleeping in her bed. Easily arousable, but does not follow comm ands. Right-sided hemiparesis noticed. HEENT: Mucous membrane is moist and pink. Rate and rhythm is regular. CHEST: Clear to auscultation bilaterally. LABORATORY EXAMINATION: Her blood culture remained negative x2 and her urine culture grew granulicat mikhail adiacens. Please note that she has finished the antibiotics while in the hospital and is not being discharged o n any antibiotics at this time. She will finish her rehabilitation over at [facility]. She remains h igh risk for readmission due to multiple comorbidities and bed bound status. Total time spent in the discharge of this patient, 35 minutes.
[2018-01-26 17:06] VITALS: BP 146/82; TEMP 97.4
--- NOTE | 2018-02-01 15:05 | EKG ---
Test Reason : Blood Pressure : / mmHG Vent. Rate : 090 BPM Atrial Rate : 090 BPM P-R Int : 172 ms QRS Dur : 084 ms QT Int : 388 ms P-R-T Axes : 071 049 065 degrees QTc Int : 474 ms Normal sinus rhythm Normal ECG Confirmed by AURY CARROLL ([id number]), film and video editor VANESSA MURRAY ([id number]) on 02/01/2018 3:05:12 PM Referred By: Confirmed By:AURY CARROLL
== END 2018-01-26 13:34 | DRG 570 ==
LOC: ERS 14:35 → T4-A 21:55
PROVIDERS: ADMIT Family Medicine; ATTEND Family Medicine
PROC: 0JB70ZZ Excision of Back Subcutaneous Tissue and Fascia, Open Approach (ICD-10-PCS; principal; 2018-01-10)
DX: L89.154 Pressure ulcer of sacral region, stage 4 (principal); E44.0 Moderate protein-calorie malnutrition; I69.351 Hemiplegia and hemiparesis following cerebral infarction affecting right dominant side; N39.0 Urinary tract infection, site not specified; Z68.1 Body mass index [BMI] 19.9 or less, adult; D69.6 Thrombocytopenia, unspecified; E11.9 Type 2 diabetes mellitus without complications; E03.9 Hypothyroidism, unspecified; I10 Essential (primary) hypertension; D64.9 Anemia, unspecified; I69.320 Aphasia following cerebral infarction; Z85.3 Personal history of malignant neoplasm of breast; Z85.42 Personal history of malignant neoplasm of other parts of uterus; Z88.0 Allergy status to penicillin; Z88.8 Allergy status to other drugs, medicaments and biological substances; Z79.84 Long term (current) use of oral hypoglycemic drugs; Z79.82 Long term (current) use of aspirin; Z79.899 Other long term (current) drug therapy; Z90.11 Acquired absence of right breast and nipple
CPT/HCPCS: 36415; 36416; 51701; 71045; 72170; 80048; 80053; 80202; 81003; 81015; 83605; 83880; 85025; 85610; 85652; 85730; 86140; 87040; 87077; 87086; 93005; 96365; 96367; A4216; A4353; J0696; J1650; J1956; J2001; J2405; J2543; J2704; J3010; J3370; J3490; J7050; S0028